=== PATIENT | male | born 1935 ===

== ENCOUNTER 2020-02-04 10:09 | Outpatient (REF) | payer MEDICARE, SELFPAY ==
--- NOTE | 2020-02-04 10:20 | XR_ITS ---
EXAMINATION: XR CHEST CLINICAL INFORMATION: SOB. COMPARISON: CT cervical spine 08/19/2017 TECHNIQUE: 2 views of the chest were obtained. FINDINGS: The lungs are well-expanded and clear of acute process. The soft tissue mass right superior paramediastinal adjacent to the trachea. The heart size and pulmonary vascularity is normal. No gross bony abnormality seen. XR/XR chest 2V IMPRESSION: Clear lungs. 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
== END 2020-02-04 10:10 | disposition home or self-care (01) ==
LOC: HO.XRAY 10:09
PROVIDERS: Visit Provider Internal Medicine
DX: R06.02 Shortness of breath (principal)
CPT/HCPCS: 71046

== ENCOUNTER 2020-03-24 11:09 | Outpatient (REF) | payer MEDICARE, SELFPAY | END 2020-03-24 11:10 | disposition home or self-care (01) | LOC: HO.HAP 11:09 | PROVIDERS: Visit Provider Internal Medicine | DX: Z46.1 Encounter for fitting and adjustment of hearing aid (principal) | CPT/HCPCS: V5266 ==

== ENCOUNTER 2020-04-24 13:58 | Outpatient (REF) | payer MEDICARE, SELFPAY ==
--- NOTE | 2020-04-24 16:00 | MHC.AU.P13 ---
Adult Audiological Evaluation Date of Visit: 04/24/20 Lightning Protection Installer Used: Turkish- In Person Reason for Appointment: Audiological evaluation to monitor the status of patient's hearing loss. He reports that the right aid hasn't been fitting well so he hasn't been able to use the hearing aid in that ear. He feels his hearing is gradually decreasing. He denies any changes to his medical history. Patient is due for updated amplification in order to facilitate improved communication. Previous Hearing Test Results: [facility], 01/15/2019- Mild sloping to severe sensorineural hearing loss bilaterally. 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: [employer] Model: [employer] M70-312 Serial Number: [id number] Battery Size: 312 Repair Warranty: 05/12/2016 Loss and Damage Warranty: 05/12/2016 Dispensed By: [facility] Date of Fittin04/26/2014 Hearing Instrument History- Left Ear: Sand Car Worker: Phonak Model: [employer] M70-312 Serial Number: [id number] Battery Size: 312 Warranty: 03/24/2020 Loss and Damage Warranty: 05/12/2016 Dispensed By: [facility] Date of Fittin04/26/2014 Otoscopy: Right Ear: Occluded with cerumen, removed with permission by lighted curette Left Ear: Unremarkable Tympanometry: Tympanometry performed due to: To determine if cerumen blockage is fully occluding canal(s) Right Ear: Normal Middle Ear System (Type A) Left Ear: Normal Middle Ear System (Type A) Hearing Evaluation: Transducer(s) Used: Insert Earphones, Bone Conduction Method: Conventional Audiometry Stimuli Used: Pure Tones Right Ear: Description of Hearing: Mild sloping to severe sensorineural hearing loss from 250-8000 Hz. Left Ear: Description of Hearing: Mild sloping to severe sensorineural hearing loss from 250-8000 Hz. Speech Recognition Threshold (SRT): Method Used: Not performed at today's visit. Right Ear: Could not perform speech testing due to aphasia. Word Discrimination: Method: Not performed at today's visit. Comparison: Compared to the most recent evaluation: Hearing is stable. Recommendations: Audiological re-evaluation in one year. Trial with amplification is recommended. Medical clearance from a physician is required before fitting. Hearing Aid Fitting will be scheduled when all materials arrive. Hearing aid maintenance performed today. See Hearing Aid Evaluation report for more information. Hearing aid(s) will be ordered after approval is received. Diagnosis: Primary Diagnosis: H90.3 Bilateral Sensorineural Hearing Loss Secondary Diagnosis: H61.21 Impacted Cerumen, Right Ear Services Performed: Comprehensive Audiological Evaluation (CPT 65597) Tympanometry (CPT 98503) Signature: Provider: Gisel Solitario, CCC-A
--- NOTE | 2020-04-25 11:31 | MHC.AU.P13 ---
Hearing Aid Evaluation- Binaural Date of Visit: 04/24/20 Ibm [employer] Commerce Developer Used: Mongolian- In Person Description of Hearing: Mild sloping to severe sensorineural hearing loss bilaterally. Current Hearing Instrument Information: Phonak Virto [id number] Additional Information: Patient has a long-standing history of hearing loss and amplification use. He notes that the current aids have not been working as well for him. He is interested in updated amplification to facilitate improved communication. He would like to remain with a similar small ITE style hearing aid. Hearing Instrument Selection: Right Ear: Pipe Coverer Helper: Phonak Model: Virto M70-312 Battery Size: 312 Color: Dukes It Director: Power Left Ear: Pipe Coverer Helper: Phonak Model: Virto M70-312 Battery Size: 312 Color: Dukes It Director: Power Plan: Plan of Care for Hearing Instrument Fitting: Patient wishes to purchase hearing aids as prescribed Action Taken/Action Needed: Earmold Impressions Taken Prior authorization to be requested Medical Clearance to be requested from PCP/ENT Hearing Fitting to be scheduled when materials arrive Diagnosis Code(s): Primary Diagnosis: H90.3 Bilateral Sensorineural Hearing Loss Secondary Diagnosis: H61.21 Impacted Cerumen, Right Ear Signature: Provider: Gisel Solitario, CCC-A
--- NOTE | 2020-04-25 11:31 | MHC.AU.MED ---
Medical Clearance for Hearing Instrumentation Date: 04/25/20 Patient Name: Nader Vaughan Date of : 1935 Referring Provider: Joan Mcgee MD We have seen your patient on 04/25/20 and have determined that they are a candidate for amplification (See accompanying report). Specifically, they would benefit from: Hearing aid use in both ears There is a statute that addresses Medical Evaluation Requirements prior to fitting a patient with a hearing aid. According to [place] statute 265 CMR:6.03(1), (a) General. Except as provided in 265 CMR 6.03(1)(b), a merchandising intern shall not sell a hearing aid unless the prospective user has presented to the merchandising intern a written statement signed by a licensed physician that states that the patient's hearing loss has been medically evaluated and the patient may be considered a candidate for a hearing aid. The medical evaluation must have taken place within the preceding six months. Please note: Due to the [place] Statute referenced above, we cannot accept a signature other than that of a licensed physician. DIGITAL CAMPAIGN MANAGER and PA signatures cannot be accepted. I am in agreement with the above recommendation. There is no medical contraindication for hearing instrumentation. Physician Signature Date Physician Name (Printed)
== END 2020-04-24 13:59 | disposition home or self-care (01) ==
LOC: HO.SH 13:58
PROVIDERS: Visit Provider Family Medicine
DX: Z46.1 Encounter for fitting and adjustment of hearing aid (principal); H90.3 Sensorineural hearing loss, bilateral
CPT/HCPCS: 92557; 92567; 92591; 92593; 99499; V5275

== ENCOUNTER 2020-05-26 12:28 | Outpatient (REF) | payer MEDICARE, SELFPAY | END 2020-05-26 12:29 | disposition home or self-care (01) | LOC: HO.HAP 12:28 | PROVIDERS: Visit Provider Family Medicine | DX: Z46.1 Encounter for fitting and adjustment of hearing aid (principal); H90.3 Sensorineural hearing loss, bilateral | CPT/HCPCS: V5011; V5020; V5160; V5260; V5266 ==

== ENCOUNTER 2020-06-07 14:57 | Outpatient (REF) | payer MEDICARE, SELFPAY | END 2020-06-07 14:58 | disposition home or self-care (01) | LOC: HO.HAP 14:57 | DX: Z13.89 Encounter for screening for other disorder (principal) ==

== ENCOUNTER → 2020-07-18 15:05 | Outpatient (BNVA) | payer MEDICARE, SELFPAY | PROVIDERS: Visit Provider Internal Medicine | DX: E78.5 Hyperlipidemia, unspecified (principal) | CPT/HCPCS: 93005; 99212 ==

== ENCOUNTER 2020-07-19 17:01 | Outpatient (REF) | payer MEDICARE, SELFPAY | END 2020-07-19 17:02 | disposition home or self-care (01) | LOC: HO.HAP 17:01 | PROVIDERS: Visit Provider Family Medicine | DX: Z13.89 Encounter for screening for other disorder (principal) ==

== ENCOUNTER 2020-08-11 10:55 | Outpatient (REF) | payer MEDICARE, SELFPAY | END 2020-08-11 10:56 | disposition home or self-care (01) | LOC: HO.HAP 10:55 | PROVIDERS: Visit Provider Family Medicine | DX: Z13.89 Encounter for screening for other disorder (principal) ==

== ENCOUNTER → 2020-09-11 09:39 | Outpatient (REF) | payer MEDICARE, SELFPAY ==
--- NOTE | 2020-09-11 09:44 | CA_ITS ---
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 The visually estimated ejection fraction is between 60-65%. - The left atrium is severely dilated. - There is mild aortic valve regurgitation. - There is mild mitral valve regurgitation. - There is mild tricuspid valve regurgitation. - Mild pulmonary hypertension is present. Findings Left Ventricle Normal left ventricular cavity size. There is normal left ventricular wall thickness. The left ventricular systolic function is normal. The visually estimated ejection fraction is between 60-65%. There is no evidence of regional wall motion abnormalities. Diastolic function is indeterminate on the basis of available data. Right Ventricle Normal right ventricular cavity size and systolic function. Atria The left atrium is severely dilated. The right atrium is moderately dilated. Aortic Valve There is a normal trileaflet aortic valve. There is no aortic valve stenosis. There is mild aortic valve regurgitation. Mitral Valve The mitral valve appears normal. There is mild mitral annular calcification. There is mild mitral valve regurgitation. There is no mitral valve stenosis. Pulmonic Valve There is mild pulmonic valve regurgitation. Tricuspid Valve Normal tricuspid valve structure. There is mild tricuspid valve regurgitation. The right ventricular systolic pressure is 36 mmHg. Mild pulmonary hypertension is present. Great Vessels The aortic annulus, sinuses of valsalva, asc aorta, and aortic arch are normal in size. Venous The inferior vena cava is normal in size and collapses greater than 50% with inspiration. Pericardium/Pleural There is no evidence of pericardial effusion. Prior Study Comparison Changes noted compared to prior study dated: 07/22/2018. Slight changes in valves and pulmonary pressure. Measurements 2D Linear Measurements IVSd: 1.00 0.6-0.9/0.6-1.0 cm LVIDd: 4.43 3.9-5.3/4.2-5.9 cm LVIDs: 2.88 2.0-3.6 cm LVPWd: 0.95 0.7-1.1 cm Ao Root: 3.87 2.1-3.5 cm LV Mass: 180.23 67-162/88-224 g LVOT Diam: 2.10 3.0+(-)1.3 cm Aortic Valve AoV Pk Jero: 1.20 AoV Mn Jero: 0.80 AoV VTI: 0.26 AoV Pk Grad: 5.74 Aov Mn Grad: 2.85 AI Pk Jero: 3.91 AI Webb: 1.33 LVOT LVOT Pk Jero: 0.79 LVOT Mn Jero: 0.50 LVOT VTI: 0.17 LVOT Pk Grad: 2.52 LVOT Mn Grad: 1.19 LVOT Diam: 2.10 LVOT Area: 3.47 Tricuspid Valve TR Pk Jero: 2.85 TR Pk Grad: 32.56 RA Press: 3.00 RVSP: 36.00 Great Vessels Aorta Ao Root-2D: 3.87 2.0-3.7 cm Ao Asc: 3.60 2.1-3.4 cm Ao Arch: 2.49 Updated in Other Vendor System with Status of Final Buck Camilo MD electronically signed on 09/11/2020 11:52:13 AM with status of Final
--- NOTE | 2020-09-11 10:40 | ECG_ITS ---
Hook-up date: 2020-09-11 10:37:00 Duration: 25:52:00 Test Indications: I48.21 Medications: 56095 QRS complexes 56 Ventricular ectopics which represent <1 % of total QRS comp. * Supraventricular ectopics which represent % of total QRS comp. * Paced QRS complexs which represent % of total QRS comp. VENTRICULAR ECTOPY 53 Isolated 0 Bigeminal Cycles 0 Couplets 1 Runs 3 Beats in Runs 3 Beats LONGEST at 141 BPM at 05:54:34 2020-09-12 3 Beats FASTEST at 141 BPM at 05:54:34 2020-09-12 SUPRAVENTRICULAR ECTOPY * Isolated * Couplets * Runs * Beats in Runs * Beats LONGEST at * BPM at :: -- * Beats FASTEST at * BPM at :: -- HEART RATES 30 MIN at 23:38:59 2020-09-11 61 AVG 107 MAX at 15:51:35 2020-09-11 LONGEST RR 4.3120 secs at 01:46:17 2020-09-12 S-T LEVELS Channel 1 - 128 mm at 10:37:00 2020-09-11 - 128 mm at 10:37:00 2020-09-11 Channel 2 - 128 mm at 10:37:00 2020-09-11 - 128 mm at 10:37:00 2020-09-11 Channel 3 - 128 mm at 02:95:61 -- - 128 mm at 02:95:61 Underlying rhythm is atrial fibrillation; Average ventricular rate 61/min; range 30-107/min; Bradycardia during sleep hours; longest pause 4.3sec at 01:46am; Rare PVCs; one 3 beat run; Patient did not report any symptoms in the diary Referred By: Neelam Kilgore Overread By: NEELAM KILGORE
== END ==
LOC: HO.CARD 09:39
PROVIDERS: Visit Provider Internal Medicine
DX: I48.21 Permanent atrial fibrillation (principal); I74.9 Embolism and thrombosis of unspecified artery; Z86.73 Personal history of transient ischemic attack (TIA), and cerebral infarction without residual deficits
CPT/HCPCS: 93225; 93226; 93306

== ENCOUNTER 2020-12-08 12:40 | Outpatient (REF) | payer MEDICARE, SELFPAY | END 2020-12-08 12:41 | disposition home or self-care (01) | LOC: HO.HAP 12:40 | PROVIDERS: PCP Family Medicine; Visit Provider Family Medicine | DX: Z46.1 Encounter for fitting and adjustment of hearing aid (principal); H90.3 Sensorineural hearing loss, bilateral | CPT/HCPCS: V5266 ==

== ENCOUNTER → 2023-06-19 10:39 | Outpatient (BNVA) | payer SELFPAY | PROVIDERS: PCP Family Medicine; Visit Provider Physician Assistant | DX: Z02.79 Encounter for issue of other medical certificate (principal) ==

== ENCOUNTER 2023-08-03 14:05 | Inpatient (IN) | payer OTHER, SELFPAY ==
[2023-08-03] VITALS (11 sets, daily range): BP systolic 109–200; BP diastolic 53–108; PULSE 87–124; RESP 17–35; TEMP 36.6–36.8; O2SAT 92–100; BMI 27.0
--- NOTE | ~2023-08-03 | US_ITS ---
EXAMINATION: US RETROPERITONEAL LIMITED (RENAL ONLY) CLINICAL INFORMATION: Acute kidney injury (TRACY). COMPARISON: CT abdomen and pelvis without contrast 06/26/2016. Renal ultrasound 04/11/2010 and 11/02/2008. TECHNIQUE: Real-time imaging of the kidneys. FINDINGS: RIGHT KIDNEY: 12.0 x 7.8 x 7.0 cm (SAG x AP x TRV). The kidney is normal in size but multiple varying size cysts are present up to 5.7 cm in size. Some are complex with multiple septations. No definite solid renal masses are seen. Renal cortex appears thinned and echogenic. No renal calculi or hydronephrosis. LEFT KIDNEY: 12.5 x 6.0 x 7.1 cm (SAG x AP x TRV). The kidney is normal in size but multiple varying size cysts are present up to 8.1 cm in size. Some are complex with multiple septations. No definite solid renal masses are seen. Renal cortex appears thinned and echogenic. No renal calculi or hydronephrosis. Similar findings were seen in the kidneys at the time of the 06/26/2016 study as well as studies dating back to 2008. US/US renal BI IMPRESSION: 1. Bilateral renal cysts, some of which are complex with multiple septations. If further workup is desired, MRI would be the exam of choice for further evaluation, in this patient with renal failure. However, if no therapy would be considered if an enhancing portion of the mass is seen, no further workup is probably necessary. 2. Bilateral renal cortical thinning and increased echogenicity consistent with medical renal disease. 3. A superimposed cause for renal function worsening could be cortical thinning.
--- NOTE | ~2023-08-03 | XR_ITS ---
EXAMINATION: XR CHEST CLINICAL INFORMATION: Fluid overload COMPARISON: Previous chest x-ray from 2019 and chest from 2017 TECHNIQUE: Frontal view of the chest was obtained. FINDINGS: The cardiac contours are stable. The lungs are clear. No pleural effusion or pneumothorax. Degenerative changes of the spine. XR/XR chest 1V IMPRESSION: No evidence for acute disease in the chest.
[2023-08-03] MEDS: Furosemide 40 MG/4 ML VIAL IVPUSH (14:10)
[2023-08-03] MEDS: Aspirin Enteric Coated 81 MG TABLET.DR PO (14:15)
[2023-08-03] MEDS: Nitroglycerin 2 % Oint 1 GM Packet 0.5 INCH TRANSDERMA (14:15)
--- NOTE | 2023-08-03 14:16 | ECG_ITS ---
Test Reason : CP Blood Pressure : / mmHG Vent. Rate : 113 BPM Atrial Rate : 000 BPM P-R Int : 000 ms QRS Dur : 078 ms QT Int : 280 ms P-R-T Axes : 000 035 034 degrees QTc Int : 384 ms Atrial fibrillation with rapid ventricular response Abnormal ECG When compared to the previous EKG of Vent. rate has increased Referred By: Chriss Rasheed Electronically Signed By:JULIETTE MELENDREZ MD
--- NOTE | 2023-08-03 14:17 | ED_ITS ---
HPI - General Adult General Chief complaint: Dyspnea Stated complaint: dIFF BREAHTING Time Seen by Provider: 08/03/23 14:31 Source: patient, family and enrollment management coordinator Mode of arrival: ambulatory Limitations: no limitations History of Present Illness ED Provider: DR. Kaufman HPI narrative: 88-year-old male came in after had a sudden onset of difficulty breathing patient was brought to the emergency department by his neighbor initially patient was in acute respiratory distress appear cyanotic, hypertensive, diaphoretic exam is consistent with acute CHF exacerbation, patient was placed on BiPAP, given Lasix, nitro paste, patient in the emergency department start to feel gradually better, patient was weaned off BiPAP machine patient is maintaining stable vital sign. Patient with history of arterial blood clots patient is on Xarelto. Related Data Home Medications ?Medication ?Instructions ?Recorded ?Confirmed amlodipine 5 mg tablet 5 mg PO DAILY 07/18/20 08/03/23 atorvastatin 20 mg tablet 20 mg PO DAILY 07/18/20 08/03/23 lisinopril 40 mg tablet 40 mg PO DAILY 07/18/20 08/03/23 rivaroxaban 20 mg tablet 20 mg PO BEDTIME 07/18/20 08/03/23 Previous Rx's ?Medication ?Instructions ?Recorded metoprolol tartrate 50 mg tablet 75 mg (1.5 x 50 mg) PO BID #270 12/26/21 tabs Allergies Allergy/AdvReac Type Severity Reaction Status Date / Time No Known Allergies Allergy Verified 08/03/23 14:18 [No Known Allergies*] Review of Systems 2 Review of Systems: all other systems are reviewed and are negative Constitutional: Reports as per HPI and Reports no additional constitutional complaints Eyes: Reports as per HPI and Reports no additional eye complaints Reports system reviewed and no additional complaints, except as documented Cardiovascular: Reports as per HPI and Reports no additional cardiovascular complaints Respiratory: Reports as per HPI and Reports no additional respiratory complaints Gastrointestinal: Reports as per HPI and Reports no additional gastrointestinal complaints Genitourinary: Reports no additional female genitourinary complaints Musculoskeletal: Reports no additional musculoskeletal complaints Skin/Breast: Reports system reviewed and no additional complaints, except as docu Psychiatric: Reports no additional psychiatric complaints Endocrine: Reports no additional endocrine complaints Hematologic/Lymphatic: Reports no additional hematologic/lymphatic complaints Allergic/Immunologic: Reports no additional allergic/immunologic complaints Reports system reviewed and no additional complaints, except as documented and Reports Abnormal speech present PMFSH Past Medical History Medical History Other and unspecified hyperlipidemia Essential hypertension Subdural hematoma Arterial embolism Cerebrovascular accident (CVA) Permanent atrial fibrillation Surgical History History of embolectomy (~04/2016) Family History Family History Father No problems noted. Mother No problems noted. Social History Social History Household Members: None Housing: House Do you presently have visiting nurse or other home services: No Patient Tobacco Use Status: Tobacco use Unknown Smoked in Last 30 Days: No Use of substances other than those prescribed or required for medical reasons: No Currently Displaying Signs/Symptoms of Drug Intoxication Withdrawal: No Have you been hit, kicked, punched, or otherwise hurt by someone within the past year? If so, by whom?: No Do you feel safe in your current relationship?: No Current Relationship Is there a partner from a previous relationship who is making you feel unsafe now?: No Are you made to feel afraid or neglected: No Advance Directives: No Advance Directives Information Provided: Yes Do you have a plan to hurt others: No Plan Recently lost weight without trying: Unsure Eating poorly because of decreased appetite: Yes Nutrition Risks: No Nutritional Risk service: No Physical Exam ED Vital Signs: Vital Signs - 24 hr 08/03/23 14:10 08/03/23 14:15 08/03/23 14:21 Temperature Pulse Rate 124 H Respiratory Rate 32 H 30 H Blood Pressure 200/99 H 189/108 H Pulse Oximetry 98 Oxygen Delivery Method BiPAP Oxygen Flow Rate 08/03/23 14:25 08/03/23 14:33 08/03/23 14:36 Temperature Pulse Rate 117 H 117 H Respiratory Rate 35 H 27 H 22 H Blood Pressure 174/78 H Pulse Oximetry 100 Oxygen Delivery Method BiPAP Oxygen Flow Rate 100 08/03/23 14:43 08/03/23 15:50 08/03/23 16:36 Temperature 98.3 F Pulse Rate 101 H 96 93 Respiratory Rate 18 20 17 Blood Pressure 149/102 H 117/65 122/76 Pulse Oximetry 100 95 94 Oxygen Delivery Method BiPAP Room Air Room Air Oxygen Flow Rate 45 BMI result Body Mass Index 27.0 Vital signs have been reviewed and appear to be correct. Blood pressure elevated. Heart rate normal. Respiratory rate normal. Temperature normal. Oxygen saturation normal. Appearance: Diaphoretic,Oriented X3. acute respiratory distress. Head: Normal external exam. Normocephalic. Atraumatic. No Heath signs noted. No raccoon eyes noted Eyes: PERRLA. EOMI. Conjunctiva and sclera normal. Eyelids normal. ENT: TM's Normal. Pharynx normal. Uvula midline. Moist mucous membranes. No trismus noted. No drooling noted. No muffled voice noted. Neck: Normal inspection. Neck supple. FROM. No adenopathy. Thyroid Normal. No meningeal signs. No neck mass noted. CVS: Normal heart rate and rhythm. Heart sound normal. No murmurs noted. Pulses normal throughout. Respiratory: acute respiratory distress, diaphoretic, positive JVD, accessory muscle usage noted. Abdomen: Soft and nontender. Bowel sounds normal in all 4 quadrants. No distention noted. No organomegaly noted. No visible injury noted. Back: No CVA tenderness. Full range of motion noted. Skin: Skin warm and dry. Normal skin color. Normal skin turgor. No rashes/lesions/lacerations noted. Extremities: +1 lower extremity edema. Extremities exhibit normal range of motion. Extremities nontender. Neuro: Oriented X 3. Cranial nerve exam: II-XII are grossly intact No motor deficit. No sensory deficit. Reflexes normal. Course Course Course Narrative: RME: Done by PAULINE Rasheed. Patient is presents cyanotic shortness of breath. Lung sound wet with crackles. Patient brought immediately to the ED bed 2. Dr. Kaufman took over care. Nitro paste, Lasix, aspirin, magnesium, albuterol, Solu- Medrol ordered. Chest x-ray ordered EKG labs ordered. Patient placed on monitor. Reevaluation(s) Reevaluation #1: 88-year-old male came in in acute respiratory distress secondary to CHF. patient improvement and abscence of cp and low d dimer value make PE is unfavorable diagnosis. Patient is of BiPAP will continue monitoring and admit to the floor case was discussed with Dr. Lafleur. Continue with Lasix, nitro, bronchodilator. Case signed out to Dr. Bui. Time: 15:49 Medications Administered Generic Name Dose Route Start Last Admin Trade Name Freq PRN Reason Stop Dose Admin Amlodipine Besylate 5 mg 08/04/23 09:00 08/04/23 08:12 Amlodipine Besylate 5 Mg Tablet PO 5 mg DAILY TACHO Administration Protocol Atorvastatin Calcium 20 mg 08/04/23 09:00 08/04/23 08:12 Atorvastatin Calcium 20 Mg Tablet PO 20 mg DAILY TACHO Administration Metoprolol Tartrate 50 mg 08/03/23 21:00 08/04/23 08:12 Metoprolol Tartrate 50 Mg Tablet PO 50 mg TID TACHO Administration Protocol Rivaroxaban 15 mg 08/03/23 21:00 08/03/23 20:32 Rivaroxaban 15 Mg Tablet PO 15 mg BEDTIME TACHO Administration Sodium Chloride 3 ml 08/04/23 00:00 08/04/23 08:13 0.9 % Sodium Chloride Flush 3 Ml Syringe IVFLUSH 3 ml QSHIFT TACHO Administration Discontinued Medications Generic Name Dose Route Start Last Admin Trade Name Freq PRN Reason Stop Dose Admin Aspirin 81 mg 08/03/23 14:15 08/03/23 14:15 Aspirin Enteric Coated 81 [address].Dr THOMPSON 08/03/23 14:16 81 mg ONCE ONE Administration Albuterol Sulfate 7.5 mg/ 0 mg 08/03/23 14:23 08/03/23 14:24 Albuterol/Ipratropium 3 ml INHALE 08/03/23 14:24 1 each ONCE ONE Administration Furosemide 40 mg 08/03/23 14:15 08/03/23 14:10 Furosemide 40 Mg/4 Ml Vial IVPUSH 08/03/23 14:16 40 mg STAT STA Administration Protocol Magnesium Sulfate 2 gm in 50 mls @ 25 mls/hr 08/03/23 14:15 08/03/23 16:29 Magnesium Sulfate/H2o IV 08/03/23 16:14 Infused ONCE ONE Infusion Methylprednisolone Sodium Succinate 125 mg 08/03/23 14:15 08/03/23 14:29 Methylprednisolone Sod Succ 125 Mg/2 Ml Vial IVPUSH 08/03/23 14:16 125 mg ONCE ONE Administration Metoprolol Tartrate 2.5 mg 08/03/23 18:01 08/03/23 18:29 Metoprolol Tartrate 5 Mg/5 Ml Vial IVPUSH 08/03/23 18:02 2.5 mg ONCE ONE Administration Protocol Nitroglycerin 0.5 inch 08/03/23 14:15 08/03/23 14:15 Nitroglycerin 2 % Oint 1 Gm Packet TRANSDERMA 08/03/23 14:16 0.5 inch ONCE ONE Administration Medical Decision Making Differential Diagnosis Differential Diagnoses: The differential diagnosis associated with the presentation includes ( CHF, pneumonia, pneumothorax, pleural effusion, COPD exacerbation, pulmonary embolism, electrolyte dearrangement, severe anemia.) Admission/Observation Consideration of admission/observation: Escalation of care including admission/observation considered Consult Healthcare Provider Management of the patient was discussed with: Hospitalist ( Dr. Aguirre) Lab Data MDM Lab Attestation statement: I reviewed the patient's lab results. 08/04/23 06:15 08/04/23 06:15 Labs: Lab Results 08/03/23 08/03/23 Range/Units 14:09 14:15 WBC 10.2 (4.8-10.8) X10*3/uL RBC 5.22 (4.60-5.80) X10*6/uL Hgb 16.3 (14.0-18.0) g/dl Hct 49.8 (42.0-52.0) % MCV 95.4 (80.0-98.0) fL MCH 31.2 (27.0-33.0) pg MCHC 32.7 (31.0-36.0) g/dl RDW 12.6 (11.0-16.0) % Plt Count 225 (160-400) X10*3/uL MPV 10.8 (9.4-12.4) fL Immature Gran % (Auto) 0.3 (0.0-0.4) % Neut % (Auto) 40.7 L (45-73) % Lymph % (Auto) 41.0 H (20-40) % [place] % (Auto) 9.7 (2-11) % Eos % (Auto) 7.5 H (0-4) % Baso % (Auto) 0.8 (0-2) % Lymph # (Auto) 4.2 (1.2-4.9) X10*3/uL [place] # (Auto) 1.0 (0.1-1.2) X10*3/uL Eos # (Auto) 0.8 H (0.0-0.4) X10*3/uL Baso # (Auto) 0.1 (0.0-0.2) X10*3/uL Abs Immat Gran (auto) 0.03 (0.00-0.03) X10*3/uL Absolute Neuts (auto) 4.1 (2.0-8.3) x10*3/uL Absolute Nucleated RBC 0.000 (0.0-0.012) X10*3/uL Nucleated RBC % (auto) 0.0 (0.0-0.2) /100WBC PT 16.6 H (11.1-13.3) SEC INR 1.4 H (0.9-1.1) APTT 37.7 H (26.0-36.8) SEC D-Dimer High Sensitivty 204 NG/ML Sodium 142 (135-145) mmol/L Potassium 4.8 (3.3-5.1) mmol/L Chloride 105 (96-108) mmol/L Carbon Dioxide 28 (22-29) mmol/L Anion Gap 14 (12-20) BUN 16 (9-16) mg/dL Creatinine 1.51 H (0.5-1.4) mg/dL Estim Creat Clear Calc 31.8 Estimated GFR 44 POC Glucose 136 H (60-115) mg/dL Random Glucose 138 H (60-115) mg/dL Calcium 10.0 (8.4-10.2) mg/dL Total Bilirubin 1.0 (0.0-1.0) mg/dL AST 28 (5-37) U/L ALT 16 (0-40) U/L Alkaline Phosphatase 132 H (39-117) U/L Troponin I High Sens 2.9 (<3.5-35.0) ng/L B-Natriuretic Peptide 545 H (<100) pg/mL Total Protein 8.6 H (6.5-8.0) g/dL Albumin 4.8 (3.5-5.0) g/dL Independent Interpretation I performed an independent interpretation of an: EKG ( Atrial fibrillation at 113, otherwise normal intervals, no ST-T changes.) and Plain X-Ray ( chest: No evidence for acute lung disease.) Radiology Impression Discussion of test interpretation with radiology: I have reviewed the radiologist's reading. Critical Care Time Critical Care Time Critical Care Time: Yes Total Critical Care Time: 60 Attestation: The patient was critically ill with a high probability of imminent or life- threatening deterioration. I spent greater than 30 minutes of discontinuous time evaluating the patient, delivering critical care at the bedside, discussing evaluating data with consultants. Critical care time does not include time spent performing separately billable procedures or teaching. Time spent performing critical care was 60 minutes. Discharge Plan Discharge Clinical Impression: A-fib, Acute exacerbation of CHF (congestive heart failure) Patient Disposition: Admitted As Inpatient Interventions: Admission Worksheet (ED) Last Done: 08/04/23 01:26 Discharge Date/Time: 08/04/23 02:05
[2023-08-03 14:18] LABS: MANUAL DIFF FLAG NO
[2023-08-03 14:21] LABS: Basophils Absolute Auto 0.1 X10*3/uL (0.0-0.2); Basophils Percent Auto 0.8 % (0-2); Eosinophils Absolute Auto 0.8 X10*3/uL (0.0-0.4); Eosinophils Percent Auto 7.5 % (0-4); Hematocrit 49.8 % (42.0-52.0); Hemoglobin 16.3 g/dl (14.0-18.0); Imm Gran Abs Auto 0.03 X10*3/uL (0.00-0.03); Imm Gran Pct Auto 0.3 % (0.0-0.4); Lymphocytes Absolute Auto 4.2 X10*3/uL (1.2-4.9); Mean Corpuscular HGB Conc 32.7 g/dl (31.0-36.0); Mean Corpuscular Hemoglobin 31.2 pg (27.0-33.0); Mean Corpuscular Volume 95.4 fL (80.0-98.0); Mean Platelet Volume 10.8 fL (9.4-12.4); Monocytes Percent Auto 9.7 % (2-11); Neutrophils Absolute Auto 4.1 x10*3/uL (2.0-8.3); Neutrophils Percent Auto 40.7 % (45-73); Platelet Count 225 X10*3/uL (160-400); Red Blood Count 5.22 X10*6/uL (4.60-5.80); Red Cell Distribution Width 12.6 % (11.0-16.0); White Blood Count 10.2 X10*3/uL (4.8-10.8)
[2023-08-03] MEDS: Albuterol Sulfate 7.5 MG, Albuterol/Iprat 2.5/0.5MG 3 ML 3 ML INHALE (14:24)
[2023-08-03] MEDS: methylPREDNISolone Sod Succ 125 MG/2 ML VIAL IVPUSH (14:29)
[2023-08-03] MEDS: Magnesium Sulfate/H2O 2 GM/50 ML PIGGYBACK IV (14:29)
[2023-08-03 14:35] LABS: Glucose, Whole Blood 136 mg/dL (60-115)
[2023-08-03 14:41] LABS: Alanine Aminotransferase 16 U/L (0-40); Albumin Level 4.8 g/dL (3.5-5.0); Alkaline Phosphatase 132 U/L (39-117); Anion Gap 14 (12-20); Aspartate Amino Transferase 28 U/L (5-37); Blood Urea Nitrogen 16 mg/dL (9-16); Carbon Dioxide 28 mmol/L (22-29); Chloride 105 mmol/L (96-108); Creatinine Clr Calc Pharmacy 31.8; Estimated Glomerular Filt Rate 44; Glucose Random 138 mg/dL (60-115); Potassium 4.8 mmol/L (3.3-5.1); Sodium 142 mmol/L (135-145); Total Protein 8.6 g/dL (6.5-8.0)
--- NOTE | 2023-08-03 14:43 | PC.NURSE ---
Patient tolerating bipap well, states that he is starting to feel a little better. skin color improve, resp even and non labored at this time. family at bedside
[2023-08-03 14:45] LABS: INTERNATIONAL NORM RATIO 1.4 (0.9-1.1); Prothrombin Time 16.6 SEC (11.1-13.3)
[2023-08-03 14:47] LABS: B Type Natriuretic Peptide 545 pg/mL (<100)
[2023-08-03 14:48] LABS: Partial Thromboplastin Time 37.7 SEC (26.0-36.8); Troponin-I High Sensitivity 2.9 ng/L (<3.5-35.0)
[2023-08-03 15:10] LABS: D Dimer High Sensitivity 204 NG/ML
--- NOTE | 2023-08-03 15:52 | PC.NURSE ---
patient awake/alert, speaking in full sentences, lungs have rhonchi throughout- breathing is equal and non labored at this time, pt currently titrated off oxygen by RT, ekg monitor tech intact, vss, family at bedside, call carmen within reach, will continue to monitor
--- NOTE | 2023-08-03 17:02 | PM.IMHP ---
History of Present Illness Date of Service: 08/03/23 Attending physician on admission: Maury Cardoza Chief Complaint: SOB, difficulty breathing Pt is an 88-year-old male with a PMH significant for?HTN, HLD, persistent AFib on Xarelto, hx of CVA in 2014 and 2017, hx of subdural hematoma in 2016, and arterial embolism s/p embolectomy who presents to the ED with?sudden-onset difficulty breathing and respiratory distress. Pt reports he has been outside doing lots of strenuous out door yard work the past two days. This afternoon pt was inside taking a break and eating an apple when he had sudden-onset difficulty breathing. Patient then ran outside to get help and ran into his neighbor who found patient to be cyanotic, diaphoretic, and having difficulty breathing. EMS was called and patient was brought to the emergency room where he was placed on rescue BiPAP and given Lasix, and nitro paste. Patient reports difficulty breathing occurred immediately after eating the apple. [place] some nausea, but no vomiting. 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 Family is at bedside who report patient has not been eating or drinking past few days. Currently denies chest pain/pressure, palpitations. No fever, chills, abdominal pain. In the ED pt was tachycardic up to 124, tachypneic up to 32, and hypertensive up to 200/99. Labs were significant for creatinine 1.51, alk-phos 132, and BNP 545. D-dimer WNL at 204. CXR showed no evidence for acute disease in the chest. EKG pending. Pt was treated with Lasix, aspirin, nitroglycerin patch, DuoNebs, Mag sulfate, and Solu-Medrol. Pt will be admitted to the hospital for treatment further evaluation of acute respiratory distress secondary to aspiration as well as TRACY secondary to dehydration. Review of Systems Review of Systems: Sudden onset SOB, difficulty breathing Diaphoresis Nausea, no vomiting Reduced p.o. intake Denies chest pain/pressure, palpitations. No fever, chills, abdominal pain [facility] Medical History Other and unspecified hyperlipidemia Essential hypertension Subdural hematoma Arterial embolism Cerebrovascular accident (CVA) Permanent atrial fibrillation Family History Father No problems noted. Mother No problems noted. Surgical History History of embolectomy (~04/2016) Social History Smoked in Last 30 Days: No Use of substances other than those prescribed or required for medical reasons: No Advance Directives: No Advance Directives Information Provided: Yes Meds Allergies Allergy/AdvReac Type Severity Reaction Status Date / Time No Known Allergies Allergy Verified 08/03/23 14:18 [No Known Allergies*] Home Medications ?Medication ?Instructions ?Recorded ?Confirmed ?Last Taken ?Type amlodipine 5 mg tablet 5 mg PO DAILY 07/18/20 08/03/23 08/03/23 09:00 History atorvastatin 20 mg tablet 20 mg PO DAILY 07/18/20 08/03/23 08/03/23 09:00 History lisinopril 40 mg tablet 40 mg PO DAILY 07/18/20 08/03/23 08/03/23 09:00 History rivaroxaban 20 mg tablet 20 mg PO BEDTIME 07/18/20 08/03/23 Unknown History Physical Exam Vital Signs and Narrative: Vital Signs: Last Vital Signs Temp 98.3 F 08/03/23 15:50 Pulse 93 08/03/23 16:36 Resp 17 08/03/23 16:36 BP 122/76 08/03/23 16:36 Pulse Ox 94 08/03/23 16:36 O2 Del Method Room Air 08/03/23 16:36 O2 Flow Rate 45 08/03/23 14:43 Oxygen Flow Rate 100 08/03/23 14:15 BMI result Body Mass Index 27.0 Results Labs 08/03/23 14:15 08/03/23 14:15 Labs: Laboratory Results - last 24 hr 08/03/23 08/03/23 14:09 14:15 MCV 95.4 MCH 31.2 MCHC 32.7 RDW 12.6 Plt Count 225 MPV 10.8 Immature Gran % (Auto) 0.3 Neut % (Auto) 40.7 L Lymph % (Auto) 41.0 H [place] % (Auto) 9.7 Eos % (Auto) 7.5 H Baso % (Auto) 0.8 Lymph # (Auto) 4.2 [place] # (Auto) 1.0 Eos # (Auto) 0.8 H Baso # (Auto) 0.1 Abs Immat Gran (auto) 0.03 Absolute Neuts (auto) 4.1 Absolute Nucleated RBC 0.000 Nucleated RBC % (auto) 0.0 PT 16.6 H INR 1.4 H APTT 37.7 H D-Dimer High Sensitivty 204 Anion Gap 14 Estim Creat Clear Calc 31.8 Estimated GFR 44 POC Glucose 136 H Random Glucose 138 H Calcium 10.0 Total Bilirubin 1.0 AST 28 ALT 16 Alkaline Phosphatase 132 H Troponin I High Sens 2.9 B-Natriuretic Peptide 545 H Total Protein 8.6 H Albumin 4.8 Imaging Radiologist's Impressions: Impressions Chest X-Ray 08/03/23 14:36 IMPRESSION: No evidence for acute disease in the chest. Assessment and Plan (1) Acute respiratory distress: Status: Acute (2) TRACY (acute kidney injury): Status: Acute Plan Pt is an 88-year-old male with a PMH significant for?HTN, HLD, persistent AFib on Xarelto, hx of CVA in 2014 and 2017, hx of subdural hematoma in 2016, and arterial embolism s/p embolectomy who presents to the ED with?sudden-onset difficulty breathing and respiratory distress. Pt will be admitted to the hospital for treatment further evaluation of acute respiratory distress secondary to aspiration as well as TRACY secondary to dehydration. 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 intake Will encourage patient to drink 300 mL p.o. fluids q.6H Follow BMP Elevated BNP BNP elevated at 545 at time of presentation No history of CHF Patient given IV Lasix in the ED Clinically does not appear fluid overloaded: CXR without pleural effusions or pulmonary edema, lungs CTA, no lower leg edema Will get echocardiogram Will hold off on additional Lasix at this time Persistent AFib Patient initially presented with AFib with RVR Will give metoprolol 2.5 mg IV Treat with metoprolol 50 mg p.o. t.i.d. Continue Xarelto renally dosed Hx of CVA Continue statin HTN Continue amlodipine Hold lisinopril due to TRACY Full Code Attending:?Dr. Cardoza DVT Prophylaxis: On Xarelto Pt will require a hospitalization of at least two nights for treatment of?acute respiratory distress in the setting of likely aspiration as well as TRACY in the setting of likely reduced p.o. intake. Patient will require hospitalization for close monitoring of respiratory status and renal function. Quality Stroke Does the patient have a stroke diagnosis?: No VTE Prior VTE?: No VTE Risk Level:: Medical - moderate - high VTE Device Contraindication: Treatment Not Indicated VTE Drug Contraindication: N/A - Med Ordered
--- NOTE | 2023-08-03 18:06 | PHA.MEDREC ---
Pharmacy Consult ? Medication Reconciliation Pharmacy has completed the medication reconciliation. Patient's sons brought in meds. Utilized dip tanker services but sons speak khmer.
[2023-08-03] MEDS: Metoprolol Tartrate 5 MG/5 ML VIAL 2.5 MG IVPUSH (18:29)
--- NOTE | 2023-08-03 18:32 | PC.NURSE ---
pt passed swallow eval- dr. hernandez notified via tiger text. pt medicated per order, call carmen within reach, will continue to monitor
[2023-08-03] MEDS: Rivaroxaban 15 MG TABLET PO (20:32)
--- NOTE | 2023-08-03 20:45 | PC.NURSE ---
pts BP is low 100s, this nurse messaged hospitalist Gm Mayfield, who requested this nurse to hold the 50 of metoprolol.
[2023-08-04] VITALS (9 sets, daily range): BP systolic 112–149; BP diastolic 61–90; PULSE 69–104; RESP 18–20; TEMP 36.1–37.1; O2SAT 92–95
[2023-08-04] MEDS: 0.9 % Sodium Chloride Flush 3 ML SYRINGE IVFLUSH ×2 (01:24→08:13)
[2023-08-04 06:07] LABS: Appearance Urine Clear; Color Urine Yellow; Glucose Urine UA Negative (Negative); Leukocyte Esterase Urine Negative (Negative); Nitrite Urine Negative (Negative); Specific Gravity - Urine 1.015 (1.005-1.025); Urine Blood Negative (Negative); Urine Ketones Trace mg/dL (Negative); Urine Protein Negative (Neg-Trace)
[2023-08-04 06:48] LABS: Anion Gap 19 (12-20); Blood Urea Nitrogen 22 mg/dL (9-16); Calcium 9.5 mg/dL (8.4-10.2); Carbon Dioxide 22 mmol/L (22-29); Chloride 101 mmol/L (96-108); Creatinine Clr Calc Pharmacy 31.8; Estimated Glomerular Filt Rate 44; Glucose Random 256 mg/dL (60-115); Potassium 4.5 mmol/L (3.3-5.1); Sodium 137 mmol/L (135-145)
[2023-08-04 06:56] LABS: Hematocrit 47.1 % (42.0-52.0); Hemoglobin 15.5 g/dl (14.0-18.0); Mean Corpuscular HGB Conc 32.9 g/dl (31.0-36.0); Mean Corpuscular Hemoglobin 30.9 pg (27.0-33.0); Mean Platelet Volume 11.1 fL (9.4-12.4); Platelet Count 173 X10*3/uL (160-400); Red Blood Count 5.01 X10*6/uL (4.60-5.80); Red Cell Distribution Width 12.7 % (11.0-16.0); White Blood Count 9.3 X10*3/uL (4.8-10.8)
--- NOTE | 2023-08-04 07:00 | CA_ITS ---
Transthoracic Echocardiogram Patient (Last, First, Middle): Nader Khoury, Gender: Male Date of : 1935 Age: 88 Procedure Date: 08/04/2023 Procedure Type: Transthoracic Echocardiogram Location: [facility] Height: 162.56 cm Weight: 71.22 kg BSA: 1.76 m2 Heart Rate: 77 bpm BP: 132 / 89 mmHg Rubber Heel And Sole Press Tender: SHAWNA Brasher MD: Zeny CARPENTER Cardroom Attendant: Chencho Jarvis MD Symptoms: Elevated BNP, ?CHF Study Quality: Fair ECG Rhythm: Atrial Fibrillation Conclusions: - 1. Low normal LV ejection fraction 50-55% 2. Biatrial enlargement, right severely dilated and left moderately dilated 3. Mild aortic regurgitation and mitral regurgitation 4. Normal measured RV systolic pressure Findings Left Ventricle Normal left ventricular cavity size. There is normal left ventricular wall thickness. The left ventricular systolic function is low normal. The visually estimated ejection fraction is between 50-55%. Diastolic function is indeterminate on the basis of available data. Right Ventricle Normal right ventricular cavity size. There is normal right ventricular systolic function. Atria The left atrium is moderately dilated. There is no evidence of interatrial shunt. The right atrium is severely dilated. Aortic Valve There is mild calcification of the aortic valve. There is mild thickening of the aortic valve. There is no aortic valve stenosis. There is mild aortic valve regurgitation. Mitral Valve There is mild anterior and posterior mitral leaflet thickening. There is mild mitral annular calcification. There is mild mitral valve regurgitation. There is no mitral valve stenosis. Pulmonic Valve The pulmonic valve was not well visualized. Tricuspid Valve The tricuspid valve was not well visualized. There is mild tricuspid valve regurgitation. The right ventricular systolic pressure is normal. The right ventricular systolic pressure is 28 mmHg. Normal right atrial pressure. There is no evidence of pulmonary hypertension. Great Vessels The aorta was not well visualized. The pulmonary artery was not well visualized. There is mild dilatation of the sinuses of Valsalva. Venous The inferior vena cava was not well visualized. Pericardium/Pleural The pericardium was not well visualized. Measurements 2D Linear Measurements IVSd: 0.91 0.6-0.9/0.6-1.0 cm LVIDd: 4.61 3.9-5.3/4.2-5.9 cm LVIDd Index: 2.62 2.4-3.2/2.2-3.1 cm/m2 LVIDs: 3.11 2.0-3.6 cm LVPWd: 0.93 0.7-1.1 cm LA Diam: 4.20 2.7-3.8/3.0-4.0 cm LAIDs Index: 2.39 1.5-2.3 cm/m2 LV Mass: 176.14 67-162/88-224 g LV Mass Index: 100.08 43-95/49-115 g/m2 LVOT Diam: 1.90 3.0+(-)1.3 cm 2D Systolic Function EF 4C: 52.10 >55% EF 2C: 52.80 >55% EF BiP: 52.70 >55% Mitral Valve MV Pk E: 1.27 E'Lateral: 8.70 E'Medial: 6.09 E/E' Med: 20.90 E/E' Lat: 14.60 Aortic Valve AoV Pk Jero: 1.13 AoV Pk Grad: 5.00 АННА: 2.18 AI Pk Jero: 3.73 AI Foster: 2.27 LVOT LVOT Pk Jero: 0.87 LVOT Mn Jero: 0.60 LVOT VTI: 0.17 LVOT Pk Grad: 3.00 LVOT Mn Grad: 2.00 LVOT Diam: 1.90 LVOT Area: 2.84 Diastolic Function MV Pk E: 1.27 E'Medial: 6.09 E/E' Med: 20.90 E' Laterial: 8.70 E/E' Lat: 14.60 Right Ventricle TAPSE (mm): 19.40 Tricuspid Valve TR Pk Jero: 2.50 TR Pk Grad: 25.00 RA Press: 3.00 RVSP: 28.00 Great Vessels Aorta Sinus of Valsalva: 4.00 2.0-3.5 cm Ao Asc: 3.50 2.1-3.4 cm Pulmonary Valve PV Pk Jero: 0.68 Peak PV Grad: 2.00 Updated in Other Vendor System with Status of Final Chencho Jarvis MD electronically signed on 08/04/2023 11:20:15 AM with status of Final
[2023-08-04] MEDS: Atorvastatin Calcium 20 MG TABLET PO (08:12)
[2023-08-04] MEDS: Metoprolol Tartrate 50 MG TABLET PO ×2 (08:12→16:03)
[2023-08-04] MEDS: amLODIPine Besylate 5 MG TABLET PO (08:12)
--- NOTE | 2023-08-04 09:34 | MHC.CM.PN ---
CM met with Patient at bedside with the assist of a [facility] Appointment Coordinator. CM assisted Patient with the completion of a HCP; he named his Son/daniel as his Agent. CM addressed IMM with Patient and the original was given to Patient and a copy has been placed on the chart. Patient lives alone in a house and he uses a cane when he mops his floors. Home/self care is the goal and CM has initiated and will follow for dc planning. PCP is Dr. Joan Mcgee.
--- NOTE | 2023-08-04 13:44 | MHC.SL.SWA ---
Speech Pathologist Impression: Risk of aspiration Risk of Aspiration Due to: Neurological Condition Dysphasia Diet Status: No change at this time Liquid Consistency and Strategies for Safe Swallow: Liquid Intake Recommendation: Thin Liquid Intake Strategies: Small Sips Solid Food Consistency: Dietary Recommendations: Regular Additional Modifications to Solid Foods: Unremarkable exam. Recommend continue on REGULAR texture diet and THIN liquids, pills WHOLE in LIQUID. Given recent choking event and hx CVAs as risk factor, recommend direct supervision and aspiration precautions. Patient was counselled on safe eating behaviors. PARENT COACH to f/u 1-2x to monitor tolerance. Oral Medication Intake: Whole with Liquid Please contact the pharmacy regarding appropriate crushable or liquid drug formulations that are available whenever modified delivery is recommended. Compensatory Strategies and Precautions to be Taken for Safe Swallow: Sitting Upright (90 deg) Small Bites and Sips Alternate Liquids/Solids Rate of Ingestion Change Supervision While Eating and Drinking for Safe Swallow: Total Supervision (1:1) Swallowing Recommended Treatments: Compens. Strategy Educat. Recommendation for Speech: Inpatient Speech Therapy Comment: 1-2 f/u Frequency/Duration: Date Range for Service Req: Timeline to reassess: Assistant Men'S Soccer Coach Clinican/Clinical Fellow: No Supervisory Statement: I have reviewed and agree with the student/clinical fellow's documentation: N/A Speech Language Pathologist: Lisette Burks M.A., CCC-PARENT COACH
[2023-08-04] MEDS: 0.9 % Sodium Chloride 1,000 ML 60 ML IVCONT (16:05)
--- NOTE | 2023-08-04 16:47 | HO.PM.IMPN ---
Subjective Subjective Date of Service: 08/04/23 Interval History: possible aspirtion afib rvr tracy Review of Systems sob seems to be improved ,denies any chest pain no cough Physical Exam Vital Signs: Vital Signs: Last Vital Signs Temp 97.5 F 08/04/23 15:35 Pulse 74 08/04/23 16:03 Resp 20 08/04/23 15:35 BP 135/80 08/04/23 16:03 Pulse Ox 92 08/04/23 15:35 O2 Del Method Room Air 08/04/23 15:35 O2 Flow Rate 45 08/03/23 14:43 Oxygen Flow Rate 100 08/03/23 14:15 BMI result Body Mass Index 27.0 Appearance: Alert.? Oriented X3.? cvs: rrr, [id number] , no murmur res: clear to auscultation ,no rhonchii or wheezing abd: no rebound or guarding ,nt, bs present. ext pulses present , no cyanosis , no edema neuro: axo3 , nonfocal. Objective Data Active Medications Acetaminophen (Acetaminophen 325 Mg Tablet) 650 mg PO Q6H PRN PRN Reason: Pain, Mild (Pain Scale 1-3) Amlodipine Besylate (Amlodipine Besylate 5 Mg Tablet) 5 mg PO DAILY [facility]; Protocol Last Admin: 08/04/23 08:12 Dose: 5 mg Documented By: AYAZ Atorvastatin Calcium (Atorvastatin Calcium 20 Mg Tablet) 20 mg PO DAILY [facility] Last Admin: 08/04/23 08:12 Dose: 20 mg Documented By: AYAZ Benzonatate (Benzonatate 100 Mg Capsule) 100 mg PO TID PRN PRN Reason: Cough Docusate Sodium (Docusate Sodium 100 Mg Capsule) 100 mg PO DAILY PRN PRN Reason: Constipation Sodium Chloride (Ns) 1,000 mls @ 60 mls/hr IVCONT .[id number] [facility] Last Admin: 08/04/23 16:05 Dose: 60 mls/hr Documented By: AYAZ Melatonin (Melatonin 3 Mg Tablet) 6 mg PO BEDTIME PRN PRN Reason: Insomnia Metoprolol Tartrate (Metoprolol Tartrate 50 Mg Tablet) 50 mg PO TID [facility]; Protocol Last Admin: 08/04/23 16:03 Dose: 50 mg Documented By: AYAZ Ondansetron HCl (Ondansetron Hcl 4 Mg/2 Ml Vial) 4 mg IVPUSH Q8H PRN PRN Reason: Nausea and Vomiting Rivaroxaban (Rivaroxaban 15 Mg Tablet) 15 mg PO BEDTIME [facility] Last Admin: 08/03/23 20:32 Dose: 15 mg Documented By: CHAYA Sodium Chloride (0.9 % Sodium Chloride Flush 3 Ml Syringe) 3 ml IVFLUSH QSHIFT [facility] Last Admin: 08/04/23 16:05 Dose: Not Given Documented By: AYAZ Non-Admin Reason: IV Running Labs 08/04/23 06:15 08/04/23 06:15 Labs: Laboratory Results - last 24 hr 08/04/23 08/04/23 05:55 06:15 MCV 94.0 MCH 30.9 MCHC 32.9 RDW 12.7 Plt Count 173 MPV 11.1 Absolute Nucleated RBC 0.000 Nucleated RBC % (auto) 0.0 Anion Gap 19 Estim Creat Clear Calc 31.8 Estimated GFR 44 Random Glucose 256 H Calcium 9.5 Urine Color Yellow Urine Appearance Clear Urine pH 5.0 Ur Specific [place] 1.015 Urine Protein Negative Urine Glucose (UA) Negative Urine Ketones Trace Urine Blood Negative Urine Nitrite Negative Ur Leukocyte Esterase Negative Assessment and Plan (1) TRACY (acute kidney injury): Status: Acute (2) Acute respiratory distress: Status: Acute (3) Other and unspecified hyperlipidemia: Status: Acute Plan 88-year-old male with a PMH significant for?HTN, HLD, persistent AFib on Xarelto, hx of CVA in 2014 and 2017, hx of subdural hematoma in 2016, and arterial embolism s/p embolectomy who presents to the ED with?sudden-onset difficulty breathing and respiratory distress. Pt will be admitted to the hospital for treatment further evaluation of acute respiratory distress secondary to aspiration as well as TRACY secondary to dehydration. Acute respiratory distress-sudden onset SOB, cyanosis, diaphoresis, difficulty breathing; placed on rescue BiPAP in the ED to good effect Likely secondary to aspiration on apple CXR negative, lungs Clear to ausculatation, pt currently without respiratory complaints, no longer on supplemental O2 No leukocytosis or fever check respiratory panel,added procalcitonin levels tachycardia improved, Monitor respiratory status,consider antibiotics if fevers or new symptoms TRACY Creatinine 1.51 at time of presentation Baseline around 1.10 Likely secondary to reduced p.o. intake,diurectics /lisnopril added ivf gentle ,encourage patient to drink 300 mL p.o. fluids q.6H ua neg renal us Follow BMP, added nephro eval. Elevated BNP BNP elevated at 545 at time of presentation,patient denies new symptoms No history of CHF Patient given IV Lasix in the ED Clinically does not appear fluid overloaded: CXR without pleural effusions or pulmonary edema, lungs CTA, no lower leg edema echocardiogram:ef 50-55% Biatrial enlargement, right severely dilated and left moderately dilated Mild aortic regurgitation and mitral regurgitation Normal measured RV systolic pressure hold off on additional Lasix at this time,moniter closely. Persistent AFib Patient initially presented with AFib with RVR given metoprolol 2.5 mg IV continue metoprolol 50 mg p.o. t.i.d., Xarelto renally dose.d Hx of CVA Continue statin HTN Continue amlodipine Hold lisinopril due to TRACY Full Code DVT Prophylaxis: On Xarelto ongoing need hospitalization for treatment of?acute respiratory distress in the setting of likely aspiration as well as TRACY in the setting of likely reduced p.o. intake. Patient will require hospitalization for close monitoring of respiratory status and renal function. Quality Stroke Does the patient have a stroke diagnosis?: No VTE Prior VTE?: No VTE Risk Level:: Medical - moderate - high VTE Device Contraindication: Treatment Not Indicated VTE Drug Contraindication: N/A - Med Ordered
[2023-08-04 18:44] LABS: Procalcitonin 0.07 ng/mL
[2023-08-04] MEDS: Rivaroxaban 15 MG TABLET PO (20:41)
[2023-08-05 03:00] VITALS: BP 146/83; PULSE 76; RESP 20; TEMP 36.3; O2SAT 94
[2023-08-05 06:45] LABS: Anion Gap 14 (12-20); Blood Urea Nitrogen 24 mg/dL (9-16); Calcium 9.2 mg/dL (8.4-10.2); Carbon Dioxide 26 mmol/L (22-29); Chloride 103 mmol/L (96-108); Creatinine Clr Calc Pharmacy 44.8; Estimated Glomerular Filt Rate > 60; Glucose Random 123 mg/dL (60-115); Potassium 4.3 mmol/L (3.3-5.1); Sodium 139 mmol/L (135-145)
[2023-08-05 07:54] VITALS: BP 158/79; PULSE 74; RESP 20; TEMP 36.6; O2SAT 96
[2023-08-05 08:35] VITALS: BP 158/79; PULSE 74
[2023-08-05] MEDS: amLODIPine Besylate 5 MG TABLET PO (08:35)
[2023-08-05] MEDS: Metoprolol Tartrate 50 MG TABLET PO (08:35)
[2023-08-05] MEDS: Atorvastatin Calcium 20 MG TABLET PO (08:35)
[2023-08-05 10:02] LABS: Adenovirus PCR Not Detected (Not Detect.); Bordetella parapertussis PCR Not Detected (Not Detect.); Bordetella pertussis PCR Not Detected (Not Detect.); Chlamydia pneumoniae PCR Not Detected (Not Detect.); Coronavirus 229E PCR Not Detected (Not Detect.); Coronavirus HKU1 PCR Not Detected (Not Detect.); Coronavirus NL63 PCR Not Detected (Not Detect.); Coronavirus OC43 PCR Not Detected (Not Detect.); Human metapneumovirus PCR Not Detected (Not Detect.); Influenza A PCR Not Detected (Not Detect.); Influenza B PCR Not Detected (Not Detect.); Mycoplasma pneumoniae PCR Not Detected (Not Detect.); Parainfluenza 1 PCR Not Detected (Not Detect.); Parainfluenza 2 PCR Not Detected (Not Detect.); Parainfluenza 3 PCR Not Detected (Not Detect.); Parainfluenza 4 PCR Not Detected (Not Detect.); RSV PCR Not Detected (Not Detect.); Rhino/Enterovirus PCR Not Detected (Not Detect.)
[2023-08-05 10:28] LABS: SARS-CoV-2 PCR Not Detected (Not Detect.)
--- NOTE | 2023-08-05 11:34 | P.DS_ITS ---
DS: Providers Provider Date of Service: 08/05/23 Date of admission: 08/03/23 18:02 Primary care physician: Chloé Swenson NP Consults: 08/04/23 12:53 Consult to Nephrology Routine Consulting Provider: [facility] [place] Reason for consultation: tracy Has provider been notified: No DS: Diagnosis Discharge Diagnosis (1) TRACY (acute kidney injury): Status: Acute (2) Acute respiratory distress: Status: Acute (3) Other and unspecified hyperlipidemia: Status: Acute DS: Summary Hospital Course Hospital Course: History and physical as per admitting provider. Pt is an 88-year-old male with a PMH significant for?HTN, HLD, persistent AFib on Xarelto, hx of CVA in 2014 and 2017, hx of subdural hematoma in 2016, and arterial embolism s/p embolectomy who presents to the ED with?sudden-onset difficulty breathing and respiratory distress. Pt reports he has been outside doing lots of strenuous out door yard work the past two days. This afternoon pt was inside taking a break and eating an apple when he had sudden-onset difficulty breathing. Patient then ran outside to get help and ran into his neighbor who found patient to be cyanotic, diaphoretic, and having difficulty breathing. EMS was called and patient was brought to the emergency room where he was placed on rescue BiPAP and given Lasix, and nitro paste. Patient reports difficulty breathing occurred immediately after eating the apple. [place] some nausea, but no vomiting. 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 Family is at bedside who report patient has not been eating or drinking past few days. Currently denies chest pain/pressure, palpitations. No fever, chills, abdominal pain. In the ED pt was tachycardic up to 124, tachypneic up to 32, and hypertensive up to 200/99. Labs were significant for creatinine 1.51, alk-phos 132, and BNP 545. D-dimer WNL at 204. CXR showed no evidence for acute disease in the chest. EKG pending. Pt was treated with Lasix, aspirin, nitroglycerin patch, DuoNebs, Mag sulfate, and Solu-Medrol. Pt will be admitted to the hospital for treatment further evaluation of acute respiratory distress secondary to aspiration as well as TRACY secondary to dehydration. 88-year-old man treated for acute respiratory distress with cyanosis, diaphoresis and difficulty breathing secondary to food aspiration. He was eating an apple at home. Chest x-ray was negative for consolidation or effusion. He only required supplemental oxygen for short period of time and all of his symptoms resolved on their own. He was also noted to have TRACY possibly secondary to diuretic/lisinopril. Gentle IV fluids were started and patient was encouraged to increase oral intake. Renal ultrasound showed bilateral renal cortical thinning and increased echogenicity consistent with medical renal disease. He was spent some noted cyst which can be followed up with his primary care provider. His renal function improved after IV fluids. He was noted to have an elevated BNP but no obvious congestive heart failure and did not appear to be fluid overloaded. History of persistent atrial fibrillation initially presented with AFib RVR but given IV metoprolol and stabilized. He is to continue his metoprolol and Xarelto. History of CVA. Continue statin Hypertension. Continue amlodipine, lisinopril. Time Attestation Discharge Coordination Time (in mins): 35 Quality: Safe Use of Opioids Does Pt have an Active Cancer Diagnosis on the Problem List?: No Quality: Stroke Does the patient have a stroke diagnosis?: No Physical Exam Vital Signs: Vital Signs: Last Vital Signs Temp 97.9 F 08/05/23 07:54 Pulse 74 08/05/23 08:35 Resp 20 08/05/23 07:54 BP 158/79 H 08/05/23 08:35 Pulse Ox 96 08/05/23 07:54 O2 Del Method Room Air 08/05/23 07:54 O2 Flow Rate 45 08/03/23 14:43 Oxygen Flow Rate 100 08/03/23 14:15 BMI result Body Mass Index 27.0 Appearing in no acute distress head is normocephalic atraumatic eyes pupils are PERRLA sclera is anicteric mouth throat mucous membranes are intact and moist neck is supple no lymphadenopathy, no JVD noted lung sounds are clear to auscultation heart regular rate rhythm, clear S1, S2 positive bowel sounds, abdomen is soft, nontender neuro patient is alert x3, no focal deficits DS: Data Data Completed and Pending Labs on day of discharge: Laboratory Results - last 24 hr 08/04/23 08/04/23 08/05/23 06:15 17:31 06:18 Hold Purple Top SEE NOTE Sodium 139 Potassium 4.3 Chloride 103 Carbon Dioxide 26 Anion Gap 14 BUN 24 H Creatinine 1.07 Estim Creat Clear Calc 44.8 Estimated GFR > 60 Random Glucose 123 H Calcium 9.2 Procalcitonin 0.07 Respiratory Panel [place] See Note Adenovirus (Rapid PCR) Not Detected B.pert (TEM-PCR) Not Detected B.parapertussis DNA PCR Not Detected C. pneumoniae DNA (PCR) Not Detected Coronavirus OC43 (PCR) Not Detected Coronavirus HKU1 (PCR) Not Detected Coronavirus 229E (PCR) Not Detected Coronavirus NL63 (PCR) Not Detected Human Metapneumovir PCR Not Detected Influenza A (RT-PCR) Not Detected Influenza B (RT-PCR) Not Detected M. pneumoniae (PCR) Not Detected Parainfluenza 1 (PCR) Not Detected Parainfluenza 2 (PCR) Not Detected Parainfluenza 3 (PCR) Not Detected Parainfluenza 4 (PCR) Not Detected RSV (PCR) Not Detected Entero/Rhino (PCR) Not Detected SARS-CoV-2 RNA (RT-PCR) Not Detected Discharge Plan Discharge Anticipated Discharge Date/Time: 08/05/23 11:30 Patient Disposition: Home, Self-Care Discharge Diagnosis: Food Aspiration TRACY Referrals: Chloé Swenson STATISTICAL DEVELOPER [Primary Care Provider] - 1 Week Discharge Medications: Continued metoprolol tartrate 50 mg tablet 75 mg PO BID Qty: 270 1RF Rx Instructions: Overdue for follow up appt. Please call our office to schedule appointment so we can continue filling your prescriptions. [phone]. atorvastatin 20 mg tablet 20 mg PO DAILY lisinopril 40 mg tablet 40 mg PO DAILY amlodipine 5 mg tablet 5 mg PO DAILY rivaroxaban 20 mg tablet 20 mg PO BEDTIME Discharge Orders: Discharge Order (Routine); Ordered 08/05/23 Ordered By: Bren Nice Diet: Advance to usual diet Activity on Discharge: As tolerated Stand Alone Forms: Patient Portal Discharge page Print Language: Togolese Care Plan Goals: Follow-up with primary care provider as needed Take all medications as prescribed Health Concerns: Food Aspiration TRACY Plan of Treatment: See care plan Assessment: Treated for food aspiration after eating an apple
[2023-08-05 12:00] VITALS: BP 145/75; PULSE 83; RESP 20; TEMP 36.6; O2SAT 94
--- NOTE | 2023-08-05 12:22 | MHC.CM.PN ---
Pt is medically cleared for discharge home self-care, pts son to transport him home.
--- NOTE | 2023-08-05 13:12 | P.CONNP_ITS ---
History of Present Illness Reason for Consult Consult date: 08/05/23 Chief Complaint Chief complaint: Acute respiratory distress History of Present Illness Narrative: 88-year-old male with a PMH significant for?HTN, HLD, persistent AFib on Xarelto, hx of CVA in 2014 and 2017, hx of subdural hematoma in 2016, and arterial embolism s/p embolectomy who presents to the ED with?sudden-onset difficulty breathing and respiratory distress. Pt reports he has been outside doing lots of strenuous out door yard work the past two days. This afternoon pt was inside taking a break and eating an apple when he had sudden-onset difficulty breathing. Creatinine bumped to 1.5 and hence this consultation Review of Systems Constitutional: Denies fever(s) and Denies weight loss Cardiovascular: Denies chest pain Respiratory: Denies cough and Denies hemoptysis Gastrointestinal: Denies abdominal pain, Denies diarrhea and Denies nausea Musculoskeletal: Denies back pain Denies focal weakness PMFSH Past Medical History Medical History Other and unspecified hyperlipidemia Essential hypertension Subdural hematoma Arterial embolism Cerebrovascular accident (CVA) Permanent atrial fibrillation Family History Family History Father No problems noted. Mother No problems noted. Surgical History Surgical History History of embolectomy (~04/2016) Social History Social History Household Members: None Housing: House Do you presently have visiting nurse or other home services: No Patient Tobacco Use Status: Tobacco use Unknown Smoked in Last 30 Days: No Use of substances other than those prescribed or required for medical reasons: No Currently Displaying Signs/Symptoms of Drug Intoxication Withdrawal: No Have you been hit, kicked, punched, or otherwise hurt by someone within the past year? If so, by whom?: No Do you feel safe in your current relationship?: No Current Relationship Is there a partner from a previous relationship who is making you feel unsafe now?: No Are you made to feel afraid or neglected: No Advance Directives: No Advance Directives Information Provided: Yes Do you have a plan to hurt others: No Plan Recently lost weight without trying: Unsure Eating poorly because of decreased appetite: Yes Nutrition Risks: No Nutritional Risk service: No Meds Allergies Allergy/AdvReac Type Severity Reaction Status Date / Time No Known Allergies Allergy Verified 08/03/23 14:18 [No Known Allergies*] Active Medications: Current Medications Acetaminophen (Acetaminophen 325 Mg Tablet) 650 mg PO Q6H PRN PRN Reason: Pain, Mild (Pain Scale 1-3) Amlodipine Besylate (Amlodipine Besylate 5 Mg Tablet) 5 mg PO DAILY [facility]; Protocol Last Admin: 08/05/23 08:35 Dose: 5 mg Atorvastatin Calcium (Atorvastatin Calcium 20 Mg Tablet) 20 mg PO DAILY [facility] Last Admin: 08/05/23 08:35 Dose: 20 mg Benzonatate (Benzonatate 100 Mg Capsule) 100 mg PO TID PRN PRN Reason: Cough Docusate Sodium (Docusate Sodium 100 Mg Capsule) 100 mg PO DAILY PRN PRN Reason: Constipation Sodium Chloride (Ns) 1,000 mls @ 60 mls/hr IVCONT .[id number] [facility] Last Infusion: 08/05/23 11:54 Dose: Infused Melatonin (Melatonin 3 Mg Tablet) 6 mg PO BEDTIME PRN PRN Reason: Insomnia Metoprolol Tartrate (Metoprolol Tartrate 50 Mg Tablet) 50 mg PO TID [facility]; Protocol Last Admin: 08/05/23 08:35 Dose: 50 mg Ondansetron HCl (Ondansetron Hcl 4 Mg/2 Ml Vial) 4 mg IVPUSH Q8H PRN PRN Reason: Nausea and Vomiting Rivaroxaban (Rivaroxaban 15 Mg Tablet) 15 mg PO BEDTIME [facility] Last Admin: 08/04/23 20:41 Dose: 15 mg Sodium Chloride (0.9 % Sodium Chloride Flush 3 Ml Syringe) 3 ml IVFLUSH QSHIFT [facility] Last Admin: 08/05/23 08:35 Dose: Not Given Home Medications ?Medication ?Instructions ?Recorded ?Confirmed ?Last Taken ?Type amlodipine 5 mg tablet 5 mg PO DAILY 07/18/20 08/03/23 08/03/23 09:00 History atorvastatin 20 mg tablet 20 mg PO DAILY 07/18/20 08/03/23 08/03/23 09:00 History lisinopril 40 mg tablet 40 mg PO DAILY 07/18/20 08/03/23 08/03/23 09:00 History rivaroxaban 20 mg tablet 20 mg PO BEDTIME 07/18/20 08/03/23 Unknown History Physical Exam Vital Signs: Last Vital Signs Temp 97.9 F 08/05/23 12:00 Pulse 83 08/05/23 12:00 Resp 20 08/05/23 12:00 BP 145/75 H 08/05/23 12:00 Pulse Ox 94 08/05/23 12:00 O2 Del Method Room Air 08/05/23 12:00 O2 Flow Rate 45 08/03/23 14:43 Oxygen Flow Rate 100 08/03/23 14:15 BMI result Body Mass Index 27.0 Const General: comfortable Nutritional Appearance: well nourished Orientation/consciousness: patient oriented x3 HEENT Head: No normal to inspection Mouth: moist mucous membranes Neck Neck: Yes supple and Yes no JVD Resp Auscultation: clear to auscultation bilaterally, no rales and rub present Cardio Jugular venous distension: no JVD Palpation: no palpable S3 and no palpable S4 Heart sounds: no rubs GI Palpation (GI): Soft to palpation and nontender Percussion: No Fluid wave present General: Yes no CVA tenderness Back/Spine/Pelvis Back: no CVA tenderness Skin General skin exam: no rashes or lesions noted Neuro General: patient oriented x3 Extrem General: Yes no pedal edema and No clubbing Results Lab Results 08/04/23 06:15 08/05/23 06:18 Lab results: Chemistry 08/03/23 08/04/23 08/05/23 14:15 06:15 06:18 Sodium 142 137 139 Potassium 4.8 4.5 4.3 Carbon Dioxide 28 22 26 BUN 16 22 H 24 H Creatinine 1.51 H 1.51 H 1.07 Calcium 10.0 9.5 9.2 Hematology 08/03/23 08/04/23 14:15 06:15 WBC 10.2 9.3 Hgb 16.3 15.5 Plt Count 225 173 Urinalysis 08/04/23 05:55 Urine Color Yellow Urine Appearance Clear Urine pH 5.0 Ur Specific [place] 1.015 Urine Protein Negative Urine Glucose (UA) Negative Urine Ketones Trace Urine Blood Negative Urine Nitrite Negative Ur Leukocyte Esterase Negative Assessment and Plan (1) TRACY (acute kidney injury): Status: Acute Plan . TRACY most likely due to hypoperfusion from volume depletion. Renal function is improved with hydration. Creatinine is down to 1.07 today. Urine appears bland without any significant proteinuria hematuria. ; glomerular nephritis or interstitial disease seems unlikely. For now I would recommend to continue IV hydration for 1 more day. Keep intake more than output. Watch renal function. She will follow as needed. Procedures Date of Service Date of Service: 08/05/23
--- NOTE | 2023-08-05 13:43 | MHC.SL.DTX ---
Dysphagia Diet modifications: Last documented Solid diet consistencies: Regular Last documented Liquid consistency: Thin Last documented Medication Administration: Changes made to current diet?: No Liquid Consistency and Strategies: Liquid Intake Recommendation: Thin Compensatory Strategies for Safe Swallow: Small Sips Compensatory Strategies for Safe Swallow(b): Sitting Upright (90 deg) Small Bites and Sips Alternate Liquids/Solids Rate of Ingestion Change Solid Food Consistency: Dietary Recommendations: Regular Additional Modifications to Solids: Unremarkable exam. Recommend continue on REGULAR texture diet and THIN liquids, pills WHOLE in LIQUID. Given recent choking event and hx CVAs as risk factor, recommend direct supervision and aspiration precautions. Patient was counselled on safe eating behaviors. CENTRAL OFFICE SUPERVISOR to f/u 1-2x to monitor tolerance. Oral Medication Intake: Whole with Liquid Strategies and Precautions to be Taken for Safe Swallow: Sitting Upright (90 deg) Small Bites and Sips Alternate Liquids/Solids Rate of Ingestion Change Supervision While Eating and/Drinking: Total Supervision (1:1) Foods to Avoid: Swallowing Recommended Treatments: Compens. Strategy Educat. Level of Impact on: Daily activities: Interpersonal interactions: Education: Employment: Community: Prognosis for Improvement: Recommendation for Speech: Inpatient Speech Therapy Comment: 1-2 f/u Frequency/Duration: Date Range for Service Req: Timeline to reassess: Additional Comments: Treatment: Pt was eating his Lunch tray of regular solids with thin liquids on arrival, independently feeding himself with no overt s/s of aspiration, no barriers to adequate nutrition identified. Continue to recommend REGULAR SOLIDS and THIN LIQUIDS. MEDS WHOLE. No further CENTRAL OFFICE SUPERVISOR intervention recommended. Assessment: Hay Rake Operator Clinican/Clinical Fellow: No Supervisory Statement: I have reviewed and agree with the student/clinical fellow's documentation: N/A Speech Language Pathologist: Jersey Short M.A., [facility])-CENTRAL OFFICE SUPERVISOR
--- OUTSIDE RECORDS SUMMARY | 2023-08-08 08:57 | XMS_ITS | Continuity of Care Document ---
Author Organization [facility] Address [address] [place] [address]- Care Team Providers Care Brick Yard Hand Name Role Phone Ainsley Lambert MD Primary Care Physician Encounter [facility] [place] Date(s): 12/07/20 - 01/06/21 [facility] [address] [place], [place] [address] Attending Physician: Opal Altamirano Admitting Physician: AdmtrOpal Referring Physician: Admtr, ArMaury Allergies, Adverse Reactions, Alerts No Known Medication Allergies Immunizations Given and Recorded Vaccine Date Status Refusal Reason SARS-CoV-2 (COVID-19) mRNA BNT-162b2 vac 1 05/02/20 Given 1Result Comment: Documented from downtime form, MP,RN Medications amLODIPine 5 mg oral tablet 5 mg, 1, tablet, By Mouth, Daily, # 30 tablet, Refills 0, Maintenance, 03/23/16 19:58:09 Start Date: 03/23/16 Status: Ordered atorvastatin 20 mg oral tablet 1 tablet = 20 mg, By Mouth, Daily, # 30 tablet, 0 Refills, Maintenance, Tablet Start Date: 03/23/16 Status: Ordered FLOVENT HFA 220 MCG/ACT AERO FLOVENT HFA 220 MCG/ACT AERO, 0 Refills, Maintenance, 12/01/18 10:41:52 EDT Start Date: 12/01/18 Status: Ordered indomethacin 25 mg oral capsule 1 capsule = 25 mg, By Mouth, 3 times a day, PRN for gout pain, # 30 capsule, 0 Refills, Maintenance, 01/31/19 14:21:25 EST, Capsule Start Date: 01/31/19 Status: Ordered lisinopril 40 mg oral tablet 1 tablet = 40 mg, By Mouth, Daily, # 30 tablet, 0 Refills, Maintenance, 03/23/16 19:58:21, Tablet Start Date: 03/23/16 Status: Ordered METOPROLOL TARTRATE 50 MG TABS METOPROLOL TARTRATE 50 MG TABS, 0 Refills, Maintenance, 12/01/18 10:41:47 EDT Start Date: 12/01/18 Status: Ordered PROAIR HFA 108 MCG/ACT AERS PROAIR HFA 108 MCG/ACT AERS, 0 Refills, Maintenance, 12/01/18 10:41:54 EDT Start Date: 12/01/18 Status: Ordered XARELTO 20 MG TABS XARELTO 20 MG TABS, 0 Refills, Maintenance, 12/01/18 10:42:03 EDT Start Date: 12/01/18 Status: Ordered Social History Social History Type Response Smoking Status Former smoker; Other : quit 1974; entered on: 04/30/16 Sex
--- OUTSIDE RECORDS SUMMARY | 2023-08-08 08:57 | XMS_ITS | Continuity of Care Document ---
Author Organization [facility] Address [address] [place] [address]- Care Team Providers Care Cubing Machine Tender Name Role Phone Ainsley Lambert MD Primary Care Physician [place] [facility] [place](s): 12/04/20 - 01/03/21 [facility] [address] [place] [address]- Attending Physician: Opal Altamirano Admitting Physician: AdmtrOpal Referring Physician: AdmtrOpal Allergies, Adverse Reactions, Alerts No Known Medication Allergies Immunizations Given and Recorded Vaccine Date Status Refusal Reason SARS-CoV-2 (COVID-19) mRNA BNT-162b2 vac 1 05/02/20 Given 1Result Comment: Documented from downtime form, ERICK,RN Medications amLODIPine 5 mg oral tablet 5 [...]
--- OUTSIDE RECORDS SUMMARY | 2023-08-08 08:57 | XMS_ITS | Continuity of Care Document ---
Author Organization [facility] Address [address] [place] [id number]- Care Team Providers Care Dental Assisting Instructor Name Role Phone Ainsley Lambert MD Primary Care Physician [place] [facility] [place] - 08/[place]/22 [facility] [address] [place], [place] [address] Attending Physician: Opal Altamirano Admitting Physician: Admtr, Opal Referring Physician: Admtr, Ar8 Allergies, Adverse Reactions, Alerts No Known Medication [...] : quit 1974; entered on: 04/30/16 Sex Patient Care team information Care Team Personnel Name: Vira Rivera RN Position: S RN Member Role: Primary Care Nurse Name: Aniya Ybarra NP Position: [facility] Associate Professional Member Role: Primary Care Nurse Address: Address: [facility] [place] [address]- Name: Marzena Bojorquez RN Position: S RN Member Role: Primary Care Nurse Name: Shad Chowdhury RN Position: S RN Member Role: Primary Care Nurse Name: Reina Hoover RN Position: [facility] Rigoberto RN Member Role: Primary Care Nurse Name: Sharon Holt RN Position: [facility] RN Member Role: Primary Care Nurse Name: Ainsley Lambert MD Position: Reference Physician Member Role: PCP Address: Address: [address] [place] [address]- [place] Name: Damari Ybarra RN Position: [facility] SN RN Member Role: Primary Care Nurse Name: Cass Hernadez RN Position: S RN Member Role: Primary Care Nurse Care Team Related Persons Name: CATHY SUMANTH Address: home [address] [place] [address] Name: LIZZETH GONZALEZ Address: home [address] [place] [id number]
--- OUTSIDE RECORDS SUMMARY | 2023-08-08 08:57 | XMS_ITS | Continuity of Care Document ---
Author Organization [facility] Address [address] [place] [address]- Care Team Providers Care Manager Of Data Name Role Phone Ainsley Lambert MD Primary Care Physician Encounter [facility] Date(s): 09/08/20 - 01/06/21 [facility] [address] [place] [id number] Attending Physician: Marita LYLES, Yareli Valverde Admitting Physician: Marita LYLES, Yareli Valverde Referring Physician: iAnsley Lambert MD Allergies, Adverse Reactions, Alerts No Known Medication [...]
--- OUTSIDE RECORDS SUMMARY | 2023-08-08 08:57 | XMS_ITS | Continuity of Care Document ---
Author Organization [facility] Address [address] [place] [address]- Care Team Providers Care Warehouse Insulation Worker Name Role Phone Ainsley Lambert MD Primary Care Physician [place] [facility] [place] 07[place]/21 [facility] [address] [place] [address]- Attending Physician: Marita LYLES, Yareli Valverde Admitting Physician: Marita LYLES, Yareli Valverde Referring Physician: Marita LYLES, Yareli Valverde Allergies, Adverse Reactions, Alerts No Known Medication [...] 10:42:03 EDT Start Date: 12/01/18 Status: Ordered Vital Signs Most recent to oldest [Reference Range]: 1 Height 165 cm (07/10/21 12:52 PM) Weight 70.3 kg (07/10/21 12:52 PM) Oxygen Saturation [94-100 %] 97 % (07/10/21 12:52 PM) Pulse Rate [55-90 bpm] 80 bpm (07/10/21 12:52 PM) Body Mass Index [18.5-24.99] 25.82 *H* (07/10/21 12:52 PM) Blood Pressure [90-138/55-84 mm Hg] 142/ 80mm Hg *H* (07/10/21 12:52 PM) Mode of Delivery (Oxygen) Room air (07/10/21 12:52 PM) Blood pressure sites Arm, left (07/10/21 12:52 PM) Dry Weight 70.3 kg (07/10/21 12:52 PM) Weight Obtained Via Patient/family state d (07/10/21 12:52 PM) Dry Weight Obtained Via Patient/family s tated (07/10/21 12:52 PM) Social History Social History Type Response Smoking Status Former smoker; Other : quit 1974; entered on: 04/30/16 Sex
--- OUTSIDE RECORDS SUMMARY | 2023-08-08 08:57 | XMS_ITS | Continuity of Care Document ---
Author Organization [facility] Address [address] [place] [address]- Care Team Providers Care Accounts Receivable Manager Name Role Phone Ainsley Lambert MD Primary Care Physician [place] [facility] [place]): [place] - 08/09/22 [facility] [address] [place], [place] [address] Attending Physician: Opal Altamirano Admitting Physician: Admtr, Opal Referring Physician: Admtr, ArMaury Allergies, Adverse Reactions, [...] Care Nurse Name: Aniya Ybarra NP Position: [facility] Associate Professional Member Role: Primary Care Nurse Address: Address: [address] [place] [address]- Name: Marzena Bojorquez RN Position: S RN Member Role: Primary Care Nurse Name: Shad Chowdhury RN Position: S RN Member Role: Primary Care Nurse Name: Reina Hoover RN Position: [facility] Rigoberto RN Member Role: Primary Care Nurse Name: Sharon Holt RN Position: S RN Member Role: Primary Care Nurse Name: Ainsley Lambert MD Position: Reference Physician Member Role: PCP Address: Address: [address] [place] [address]- [place] Name: Damari Ybarra RN Position: [facility] SN RN Member Role: Primary Care Nurse Name: Cass Hernadez RN Position: S RN Member Role: Primary Care Nurse Care Team Related Persons Name: SUMANTH MORGAN Address: home [address] [place] [address] Name: LIZZETH GONZALEZ Address: home [address] [place] [address]
--- OUTSIDE RECORDS SUMMARY | 2023-08-08 08:57 | XMS_ITS | Continuity of Care Document ---
Author Organization [facility] Address [address] [place] [id number]- Care Team Providers Care Gas Distribution And Emergency Clerk Name Role Phone Ainsley Lambert MD Primary Care Physician Encounter [facility] [place] Date(s): 12/02/19 - 12/09/19 [facility] [address] [place] [address]- [facility] Attending Physician: Yareli Kirkland NP Admitting Physician: Marita LYLES, Yareli Valverde Referring Physician: Ainsley Lambert MD Allergies, Adverse Reactions, Alerts No Known Medication Allergies Medications amLODIPine 5 mg oral tablet 5 [...] oldest [Reference Range]: 1 Height 165 cm (12/02/19 1:24 PM) Weight 71.61 kg (12/02/19 1:24 PM) Oxygen Saturation [94-100 %] 97 % (12/02/19 1:24 PM) Pulse Rate [55-90 bpm] 68 bpm (12/02/19 1:24 PM) Body Mass Index [18.5-24.99] 26.3 *H* (12/02/19 1:24 PM) Blood Pressure [90-138/55-84 mm Hg] 128/ 90mm Hg (12/02/19 1:24 PM) Blood pressure sites Arm, left (12/02/19 1:24 PM) Weight Obtained Via Patient/family state d (12/02/19 1:24 PM) Social History Social History Type Response Smoking Status Former smoker; Other : quit 1974; entered on: 04/30/16 Sex
--- OUTSIDE RECORDS SUMMARY | 2023-08-08 08:57 | XMS_ITS | Continuity of Care Document ---
Author Organization [facility] Address [address] [place] [address]- Care Team Providers Care Rope Walker Name Role Phone Ainsley Lambert MD Primary Care Physician Encounter [facility] Date(s): 04/17/22 - 08/15/22 [facility] [address] [place] [id number] Attending Physician: Marita LYLES, Yareli Valverde [...] Team Personnel Name: Vira Rivera RN Position: [facility] RN Member Role: Primary Care Nurse Name: Aniya Ybarra NP Position: [facility] PCO Associate Professional Member Role: Primary Care Nurse Address: Address: [address] [place] [address]- Name: Marzena Bojorquez RN Position: [facility] RN Member Role: Primary Care Nurse Name: Shad Chowdhury RN Position: S RN Member Role: Primary Care Nurse Name: Reina Hoover RN Position: [facility] Rigoberto RN Member Role: Primary Care Nurse Name: Sharon Holt RN Position: [facility] RN Member Role: Primary Care Nurse Name: Ainsley Lambert MD Position: Reference Physician Member Role: PCP Address: Address: [address] [place] [address]- Name: Damari Ybarra RN Position: [facility] RN Member Role: Primary Care Nurse Name: Cass Hernadez RN Position: [facility] RN Member Role: Primary Care Nurse Care Team Related Persons Name: MORGANLILLIAN COLORADOIS Address: home [address] [place] [address] Name: LIZZETH GONZALEZ Address: home [address] [place] [address]
--- OUTSIDE RECORDS SUMMARY | 2023-08-08 08:57 | XMS_ITS | Continuity of Care Document ---
Author Organization [facility] Address [address] [place] [address]- Care Team Providers Care Business Operations Analyst Name Role Phone Ainsley Lambert MD Primary Care Physician Encounter [facility] [place] Date(s): 12/02/19 - 01/01/20 [facility] [address] [place] [address]- [facility] Attending Physician: Opal Altamirano Admitting Physician: Opal Altamirano Referring Physician: AdmtrOpal Allergies, Adverse Reactions, Alerts [...]
--- OUTSIDE RECORDS SUMMARY | 2023-08-08 08:57 | XMS_ITS | Continuity of Care Document ---
Author Organization [facility] Address [address] [place] [address]- Care Team Providers Care Deputy District Customs Director Name Role Phone Ainsley Lambert MD Primary Care Physician Encounter [facility] [place] Date(s): 04/11/22 - 08/09/22 [facility] [address] [place] [id number] Attending Physician: Marita LYLES, Yareli Valverde Admitting [...] Team Personnel Name: Vira Rivera RN Position: [facility] RN Member Role: Primary Care Nurse Name: Aniya Ybarra NP Position: [facility] PCO Associate Professional Member Role: Primary Care Nurse Address: Address: [address] [place] [address]- Name: Marzena Bojorquez RN Position: [facility] RN Member Role: Primary Care Nurse Name: Shad Chowdhury RN Position: S RN Member Role: Primary Care Nurse Name: Reina Hoover RN Position: [facility] Rigoberto RN Member Role: Primary Care Nurse Name: Sharon Holt RN Position: [facility] RN Member Role: Primary Care Nurse Name: Ainsley Lambert MD Position: Reference Physician Member Role: PCP Address: Address: [address] [place] [address]- [place] Name: Damari Ybarra RN Position: [facility] RN Member Role: Primary Care Nurse Name: aCss Hernadez RN Position: [facility] RN Member Role: Primary Care Nurse Care Team Related Persons Name: SUMANTH MORGAN Address: home [address] [place] [address] Name: LIZZETH GONZALEZ Address: home [address] [place] [address]
--- OUTSIDE RECORDS SUMMARY | 2023-08-08 08:57 | XMS_ITS | Continuity of Care Document ---
Author Organization [facility] Address [address] [place] [address]- Care Team Providers Care Math Coach Name Role Phone Ainsley Lambert MD Primary Care Physician Encounter [facility] Date(s): 12/02/19 - 01/01/20 [facility] [address] [place] [address]- [facility] Attending Physician: Opal Altamirano Admitting Physician: Opal [...]
--- OUTSIDE RECORDS SUMMARY | 2023-08-08 08:57 | XMS_ITS | Continuity of Care Document ---
Author Organization [facility] Address [address] [place] [address]- Care Team Providers Care Component Prep Operator Name Role Phone Ainsley Lambert MD Primary Care Physician Encounter [place] Date(s): 07/10/21 - 08/09/21 [facility] [address] [place], [place] [address] Attending Physician: Opal Altamirano Admitting Physician: Admtr, [...]
== END 2023-08-05 14:38 | disposition home or self-care (01) | DRG 158 ==
LOC: HO.ED 15:58 → HO.EDOVER 18:10 → HO.IMC 08-04 00:16
PROVIDERS: Internal Medicine; Physician Assistant; Admitting Provider Student in an Organized Health Care Education/Training Program; Emergency Provider Emergency Medicine; PCP Nurse Practitioner Primary Care; Visit Provider Nurse Practitioner Acute Care
DX: T18.0XXA Foreign body in mouth, initial encounter (principal); I48.19 Other persistent atrial fibrillation; N17.9 Acute kidney failure, unspecified; R06.03 Acute respiratory distress; W44.F3XA Food entering into or through a natural orifice, initial encounter; I10 Essential (primary) hypertension; E78.5 Hyperlipidemia, unspecified; Z20.822 Contact with and (suspected) exposure to COVID-19; Z86.73 Personal history of transient ischemic attack (TIA), and cerebral infarction without residual deficits; Z79.01 Long term (current) use of anticoagulants; Z79.899 Other long term (current) drug therapy
CPT/HCPCS: 36415; 71045; 76775; 80048; 80053; 81003; 82947; 83880; 84145; 84484; 85025; 85027; 85379; 85610; 85730; 87633; 92610; 93005; 93306; 94640; 97161; 99285; J1940; J2919; J3475

== ENCOUNTER → 2023-08-03 14:16 | Outpatient (BNV) | payer OTHER, SELFPAY | PROVIDERS: Admitting Provider Student in an Organized Health Care Education/Training Program; Emergency Provider Emergency Medicine; PCP Family Medicine; Visit Provider Internal Medicine Cardiovascular Disease | DX: R07.9 Chest pain, unspecified (principal) | CPT/HCPCS: 93010 ==

== ENCOUNTER 2023-08-03 18:02 | Outpatient (BNV) | payer OTHER, SELFPAY | END 2023-08-04 07:00 | PROVIDERS: Admitting Provider Student in an Organized Health Care Education/Training Program; Emergency Provider Emergency Medicine; PCP Family Medicine; Visit Provider Internal Medicine Cardiovascular Disease | DX: I51.7 Cardiomegaly (principal); I35.1 Nonrheumatic aortic (valve) insufficiency; I34.0 Nonrheumatic mitral (valve) insufficiency; I36.1 Nonrheumatic tricuspid (valve) insufficiency | CPT/HCPCS: 93306 ==

== ENCOUNTER → 2023-08-03 18:02 | Outpatient (BNV) | payer OTHER, SELFPAY | PROVIDERS: Admitting Provider Student in an Organized Health Care Education/Training Program; Emergency Provider Emergency Medicine; PCP Family Medicine; Visit Provider Student in an Organized Health Care Education/Training Program | DX: N17.9 Acute kidney failure, unspecified (principal); R06.03 Acute respiratory distress; E78.5 Hyperlipidemia, unspecified | CPT/HCPCS: 99223; 99231; 99239 ==

== ENCOUNTER → 2023-08-03 18:02 | Outpatient (BNV) | payer OTHER, SELFPAY | PROVIDERS: Admitting Provider Student in an Organized Health Care Education/Training Program; Emergency Provider Emergency Medicine; PCP Nurse Practitioner Primary Care; Visit Provider Internal Medicine Hypertension Specialist | DX: N17.9 Acute kidney failure, unspecified (principal) | CPT/HCPCS: 99222 ==

== ENCOUNTER 2023-09-11 11:54 | Outpatient (REF) | payer OTHER, SELFPAY ==
--- NOTE | ~2023-09-11 | XR_ITS ---
EXAMINATION: XR HAND, LEFT CLINICAL INFORMATION: PAIN ON HIS 5TH FINGER LEFT HAND AFTER DEEP CUT/TRAUMA 10 DAYS AGO. COMPARISON: Left hand and wrist 07/20/2018 TECHNIQUE: PA, lateral, and oblique views of the left hand. FINDINGS: Severe degenerative changes are present at all DIP joints with lesser changes at the PIP joints most marked in the fifth digit with some mild deformity of the distal end of the proximal phalanx possibly secondary to remote trauma. Mild degenerative change seen at the third MCP joint. Marked degenerative change seen at the first CMC joint and triscaphe joint. Periosteal reaction around the middle phalanx of the fourth digit probably secondary to remote trauma. No acute fractures or radiopaque foreign bodies are seen. XR/XR hand LT min 3V IMPRESSION: Degenerative changes as described above. No acute fractures are seen.
== END 2023-09-11 11:55 | disposition home or self-care (01) ==
LOC: HO.HHCX 11:54
PROVIDERS: Visit Provider Internal Medicine
DX: M79.645 Pain in left finger(s) (principal)
CPT/HCPCS: 73130

== ENCOUNTER 2023-09-14 09:09 | Emergency (ER) | payer OTHER, SELFPAY ==
[2023-09-14 09:12] VITALS: BP 142/82; PULSE 72; RESP 24; TEMP 36.2; O2SAT 97; BMI 25.0
--- NOTE | 2023-09-14 09:19 | ED.GENADULT ---
HPI - General Adult General Chief complaint: Skin/Abscess/Foreign Body Stated complaint: Bee sting? swollen L hand Time Seen by Provider: 09/14/23 09:18 Source: patient and director of sustainability Mode of arrival: ambulatory Limitations: language barrier History of Present Illness ED Provider: Mandeep [facility] narrative: Patient is an 88-year-old right-hand dominant male with history of HTN, CVA, AFib on rivaroxaban presenting to the emergency department with swelling to left hand after being stung by a wasp last night. He denies any pain or itching. Reports slight decreased range of motion to fingers due to swelling. Brought the wasp with him to the emergency department. He did not take any [id number]-[id number] medications prior to arrival. MD complaint: left hand swelling Onset (ago): hour(s) Location: left and upper extremity Associated symptoms: denies other symptoms Treatments prior to arrival: none Related Data Home Medications ?Medication ?Instructions ?Recorded ?Confirmed amlodipine 5 mg tablet 5 mg PO DAILY 07/18/20 08/03/23 atorvastatin 20 mg tablet 20 mg PO DAILY 07/18/20 08/03/23 lisinopril 40 mg tablet 40 mg PO DAILY 07/18/20 08/03/23 rivaroxaban 20 mg tablet 20 mg PO BEDTIME 07/18/20 08/03/23 Previous Rx's ?Medication ?Instructions ?Recorded metoprolol tartrate 50 mg tablet 75 mg (1.5 x 50 mg) PO BID #270 12/26/21 tabs Allergies Allergy/AdvReac Type Severity Reaction Status Date / Time No Known Allergies Allergy Verified 09/14/23 09:13 [No Known Allergies*] Review of Systems Review of Systems: As per HPI. Yes all other systems are reviewed and are negative Constitutional: Constitutional: Reports as per HPI [facility] Past Medical History Medical History Other and unspecified hyperlipidemia Essential hypertension Subdural hematoma Arterial embolism Cerebrovascular accident (CVA) Permanent atrial fibrillation Surgical History History of embolectomy (~04/2016) Family History Family History Father No problems noted. Mother No problems noted. Social History Social History Household Members: None Housing: House Do you presently have visiting nurse or other home services: No Patient Tobacco Use Status: Tobacco use Unknown Advance Directives: Yes Advance Directives on File: Yes Advance Directives Date on File: 08/06/23 service: No Physical Exam ED Vital Signs: Vital Signs - 24 hr 09/14/23 09:12 Temperature 97.1 F Pulse Rate 72 Respiratory Rate 24 H Blood Pressure 142/82 H Pulse Oximetry 97 Oxygen Delivery Method Room Air BMI result Body Mass Index 25.0 Vital signs have been reviewed and appear to be correct. Blood pressure normal. Heart rate normal. Respiratory rate normal. Temperature normal. Oxygen saturation normal. Const General: cooperative, healthy appearing and no acute distress Orientation/consciousness: oriented to person, oriented to place, oriented to time and patient oriented x3 Limitations: no limitations HENMT Head: Yes normocephalic and Yes atraumatic Ears: external ears normal General nose exam: Normal external nose present Face and sinus: Yes face symmetric Mouth: lip normal, tongue normal, oropharynx normal, moist mucous membranes, no audible dysphonia and no drooling Throat: Yes uvula midline and No uvular edema Eyes Pupils: Equal, round and reactive pupils present Neck Neck: Yes normal visual inspection and Yes supple Resp Effort & Inspection: normal respiratory effort and able to speak in complete sentences Auscultation: clear to auscultation bilaterally Cardio Rate: regular rate Rhythm: regular rhythm Heart sounds: S1 normal heart sound present and S2 normal heart sound present GI Palpation (GI): Soft to palpation and nontender Auscultation: normoactive bowel sounds General: Yes no CVA tenderness Back/Spine/Pelvis Back: no CVA tenderness Skin General skin exam: elasticity normal and turgor normal Neuro General: oriented to person, oriented to place, oriented to time, patient oriented x3, moves all extremities, no focal motor deficits and CN's II-XI intact bilaterally Cranial nerves: Yes Equal, round and reactive pupils present Cognition (Neuro): normal cognition Extrem Other: General: Yes full ROM, Yes no pedal edema and Yes no calf tenderness Left upper extremity: hand (no erythema) Details: normal capillary refill, neuromotor exam normal, neurosensory exam normal, vascular exam Details: radial pulse present and normal capillary refill, normal ROM of fingers and swelling Location: of the dorsal hand (diffuse); no tenderness and no unusual warmth Psych Mental Status: mental status grossly normal Affect: normal affect Thought process: Normal thought process present Medical Decision Making Medical Decision Making [facility] Narrative: Patient is an 88-year-old right-hand dominant male with history of HTN, CVA, AFib on rivaroxaban presenting to the emergency department with swelling to left hand after being stung by a wasp last night. On exam patient is awake, A+Ox3, VS WNL, afebrile, normal neurological exam without focal deficits, physical exam findings as above. Given reported symptoms and physical exam findings, initial differential includes insect bite, cellulitis. Do not suspect cellulitis at this time as patient has good ROM, no erythema or warmth. He is not diabetic. Patient medicated with loratadine in the emergency department and advised to use loratadine or Claritin daily as well as apply ice intermittently. Strict return precautions discussed with patient at bedside. Instructed patient to follow-up with PCP. Patient verbalized understanding of and agreement with plan. Assessment, plan, and return precautions all interpreted with in-person entry level electrician at bedside. Differential Diagnosis Differential Diagnoses: The differential diagnosis associated with the presentation includes As per MDM. External Record Review External record reviewed: Inpatient record, Office record and Outpatient record Discharge Plan Discharge Clinical Impression: Insect bite, Localized swelling on left hand Patient Disposition: Home, Self-Care Instructions: Insect Bite or Sting (ED), Cold Compress or Soak (ED) Additional Instructions: You were evaluated in the emergency department today for swelling to your left hand after being stung by a wasp. We recommend that you take a daily antihistamine such as loratadine (Claritin) or cetirizine (Zyrtec). We also recommend applying cool compresses for 10-15 minutes several times daily to decrease swelling. Follow-up with your primary care provider. Return to the emergency department if you develop redness, warmth, increased swelling, fevers or any other concerning symptoms. Prescriptions: No Action metoprolol tartrate 50 mg tablet 75 mg PO BID Qty: 270 1RF Rx Instructions: Overdue for follow up appt. Please call our office to schedule appointment so we can continue filling your prescriptions. [phone]. atorvastatin 20 mg tablet 20 mg PO DAILY lisinopril 40 mg tablet 40 mg PO DAILY amlodipine 5 mg tablet 5 mg PO DAILY rivaroxaban 20 mg tablet 20 mg PO BEDTIME Print Language: Canadian
[2023-09-14] MEDS: Loratadine 10 MG TABLET PO (09:56)
[2023-09-14 09:59] VITALS: BP 142/82; PULSE 72; RESP 20; TEMP 36.2; O2SAT 97
== END 2023-09-14 10:00 | disposition home or self-care (01) ==
PROVIDERS: Emergency Provider Emergency Medicine; PCP Nurse Practitioner Primary Care
DX: M79.89 Other specified soft tissue disorders (principal); T63.441A Toxic effect of venom of bees, accidental (unintentional), initial encounter; Y92.9 Unspecified place or not applicable
CPT/HCPCS: 99282

== ENCOUNTER 2023-09-30 14:47 | Outpatient (AMB) | payer OTHER, SELFPAY ==
--- NOTE | 2023-09-30 14:57 | HO.NEPHOV ---
Vital Signs 09/30/23 14:58 Height 5 ft 5 in Weight 160 lb BMI 26.6 BP 132/76 Blood Pressure Location Rt brachial Position Sitting Pulse 61 Pulse Source Pulse Oximeter Pulse Oximetry (%) 96 Oxygen Delivery Method Room Air Intake Visit Reasons: CKD STG 3B- Confirmed Automotive Maintenance Technician Required: Yes Automotive Maintenance Technician Name: Shade Wong Accompanied by: Self / Same As Patient Allergies No Known Allergies [No Known Allergies*] Allergy (Verified 09/30/23 15:00) Medication List - Last Reconciled 09/30/23 by Marlon Lam MD amlodipine 5 mg PO DAILY atorvastatin 20 mg PO DAILY lisinopril 40 mg PO DAILY metoprolol tartrate 75 mg (1.5 x 50 mg) PO BID rivaroxaban 20 mg PO BEDTIME HPI Comments Details: 88-year-old male with a PMH significant for?HTN, HLD, persistent AFib on Xarelto, hx of CVA in 2014 and 2017, hx of subdural hematoma in 2016, and arterial embolism s/p embolectomy He was hospitalized on 08/03/2023 and was found to have serum creatinine 1.07. Two days later at the time of discharge creatinine was 1.07 and this is probably his baseline. He has a history of bilateral renal cyst. This cyst are reportedly unchanged from the imaging done in 2016 and 2008. He has been referred for evaluation of renal cysts as well as renal insufficiency. He is hard of hearing he forgot his hearing aids today. It was rather difficult to communicate with him despite having the merry go round attendant over the phone. [facility] Medical History Other and unspecified hyperlipidemia Essential hypertension Subdural hematoma Arterial embolism Cerebrovascular accident (CVA) Permanent atrial fibrillation Surgical History History of embolectomy (~04/2016) Family History Father No problems noted. Mother No problems noted. Social History Household Members: None Housing: House Do you presently have visiting nurse or other home services: No Patient Tobacco Use Status: Tobacco use Unknown Advance Directives Date on File: 08/06/23 service: No Review of Systems Const Unobtainable due to mental condition Physical Exam Vital Signs: Last Vital Signs Pulse 61 09/30/23 14:58 BP 132/76 09/30/23 14:58 Pulse Ox 96 09/30/23 14:58 Oxygen Delivery Method Room Air 09/30/23 14:58 BMI result Body Mass Index 26.6 Const General: comfortable; No acute distress Orientation/consciousness: patient oriented x3 Eyes General: appearance normal, both eyes and all related structures Visual Caro: normal visual caro by confrontation Neck Neck: Yes supple and Yes no JVD Resp Effort & Inspection: normal respiratory effort and respiratory effort not decreased Auscultation: rhonchi Cardio Palpation: no palpable S3 and no palpable S4 Heart sounds: no rubs GI Inspection: Yes normal to inspection Palpation (GI): Soft to palpation Percussion: Yes normal to percussion Auscultation: normal bowel sounds General: Yes no CVA tenderness Back/Spine/Pelvis Back: no CVA tenderness Skin General skin exam: no petechiae and no purpura Neuro General: patient oriented x3 and no focal motor deficits Extrem General: No clubbing and No edema Results Reviewed Results Reviewed: Renal ultrasound. 08/21/2023. 1. Bilateral renal cysts, some of which are complex with multiple septations. If further workup is desired, MRI would be the exam of choice for further evaluation, in this patient with renal failure. However, if no therapy would be considered if an enhancing portion of the mass is seen, no further workup is probably necessary. 2. Bilateral renal cortical thinning and increased echogenicity consistent with medical renal disease. 3. A superimposed cause for renal function worsening could be cortical thinning. Nephrology Results: Hgb 15.5 g/dl (14.0-18.0) 08/04/23 WBC 9.3 X10*3/uL (4.8-10.8) 08/04/23 Plt Count 173 X10*3/uL (160-400) 08/04/23 Sodium 139 mmol/L (135-145) 08/05/23 Potassium 4.3 mmol/L (3.3-5.1) 08/05/23 Chloride 103 mmol/L (96-108) 08/05/23 Carbon Dioxide 26 mmol/L (22-29) 08/05/23 BUN 24 mg/dL (9-16) H 08/05/23 Creatinine 1.07 mg/dL (0.5-1.4) 08/05/23 Calcium 9.2 mg/dL (8.4-10.2) 08/05/23 Urine Protein Negative mg/dL (Neg-Trace) 08/04/23 Renal US 08/04/23 Assessment & Plan Assessment & Plan (1) Essential hypertension: Code(s): I10 - Essential (primary) hypertension Category: Medical (2) Renal cyst: Code(s): N28.1 - Cyst of kidney, acquired Category: Medical Plan 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 This has resolved and creatinine is back to baseline of 1.07. Nader has a history of renal cyst. He has multiple renal cysts in both kidneys some of them are rather complex no solid masses has been reported. These findings are compatible to the imaging done in 2016 and 2008. At this point, since there is cyst remained unstable I think we should continue to monitor. If there is any suspicious cyst then it would be worthwhile to proceed with an MRI. I would check urine for cytology and urine protein creatinine ratio. Goal is to slow the portion disease Continue overt nephrotoxic agents since including NSAIDs Avoid hypotension. Optimize blood pressure and maintain less than 130/80 Encouraged him to stay on low-sodium diet Increase fluid intake. Further workup will be based on the outcome of the above investigations He returned to office in the next few weeks and I have encouraged him to come back with his hearing aids. Orders: Orders Basic Metabolic Panel Today I10 - Essential (primary) hypertension, N18.9 - Chronic kidney disease, unspecified UA and rflx microscopic Today I10 - Essential (primary) hypertension, N18.9 - Chronic kidney disease, unspecified Urine Cytology Today R31.9 - Hematuria, unspecified Total Protein Urine Random Today I10 - Essential (primary) hypertension, N18.9 - Chronic kidney disease, unspecified Creatinine Urine Today I10 - Essential (primary) hypertension, N18.9 - Chronic kidney disease, unspecified Coding Level of Care Code New Pt Level 4 (39774) Diagnoses Essential hypertension I10 Renal cyst N28.1
[2023-09-30 14:58] VITALS: BP 132/76; PULSE 61; O2SAT 96; BMI 26.6
== END 2023-09-30 15:10 | disposition home or self-care (01) ==
PROVIDERS: PCP Nurse Practitioner Primary Care; Referring Provider Nurse Practitioner Primary Care; Visit Provider Internal Medicine Hypertension Specialist
DX: I12.9 Hypertensive chronic kidney disease with stage 1 through stage 4 chronic kidney disease, or unspecified chronic kidney disease (principal); N18.32 Chronic kidney disease, stage 3b; N28.1 Cyst of kidney, acquired
CPT/HCPCS: 99214

== ENCOUNTER 2023-09-30 14:47 | Outpatient (REF) | payer OTHER, SELFPAY ==
[2023-09-30 16:17] LABS: Anion Gap 10 (12-20); Blood Urea Nitrogen 13 mg/dL (9-16); Calcium 9.5 mg/dL (8.4-10.2); Carbon Dioxide 29 mmol/L (22-29); Chloride 106 mmol/L (96-108); Estimated Glomerular Filt Rate 53; Glucose Random 92 mg/dL (60-115); Potassium 4.7 mmol/L (3.3-5.1); Sodium 140 mmol/L (135-145)
[2023-09-30 17:41] LABS: Appearance Urine Clear; Color Urine Yellow; Glucose Urine UA Negative (Negative); Leukocyte Esterase Urine Negative (Negative); Nitrite Urine Negative (Negative); PH 5.5 (5.0-9.0); Specific Gravity - Urine 1.015 (1.005-1.025); Urine Blood Negative (Negative); Urine Ketones Negative (Negative); Urine Protein Negative (Neg-Trace)
[2023-09-30 18:13] LABS: Urine Cytology See Pathology rpt
[2023-09-30 18:26] LABS: Total Protein Urine Random 8 mg/dL (<12)
== END 2023-09-30 14:48 | disposition home or self-care (01) ==
LOC: HO.LAB 14:47
PROVIDERS: PCP Nurse Practitioner Primary Care; Referring Provider Nurse Practitioner Primary Care; Visit Provider Internal Medicine Hypertension Specialist
DX: I12.9 Hypertensive chronic kidney disease with stage 1 through stage 4 chronic kidney disease, or unspecified chronic kidney disease (principal); N18.9 Chronic kidney disease, unspecified; R31.9 Hematuria, unspecified; N28.1 Cyst of kidney, acquired
CPT/HCPCS: 36415; 80048; 81003; 82570; 84156; 88112; 99212

== ENCOUNTER 2023-10-30 11:43 | Outpatient (AMB) | payer OTHER, SELFPAY ==
[2023-10-30 11:44] VITALS: BP 160/82; PULSE 75; O2SAT 97; BMI 26.1
--- NOTE | 2023-10-30 11:44 | HO.NEPHOV ---
Vital Signs 10/30/23 11:44 10/30/23 11:57 Height 5 ft 5 in Weight 157 lb BMI 26.1 BP 160/82 H 140/80 H Blood Pressure Location Lt brachial Lt brachial Position Sitting Sitting Pulse 75 Pulse Source Pulse Oximeter Pulse Oximetry (%) 97 Oxygen Delivery Method Room Air Intake Visit Reasons: CKD STG 3B/ Conf Supervisor Dried Yeast Required: Yes Supervisor Dried Yeast Name: [id number] deago Accompanied by: Self / Same As Patient Allergies No Known Allergies [No Known Allergies*] Allergy (Verified 10/30/23 11:46) Medication List - Last Reconciled 10/30/23 by Marlon Lam MD amlodipine 5 mg PO DAILY atorvastatin 20 mg PO DAILY lisinopril 40 mg PO DAILY metoprolol tartrate 75 mg (1.5 x 50 mg) PO BID rivaroxaban 20 mg PO BEDTIME HPI Comments Details: 88-year-old male with a PMH significant for?HTN, HLD, persistent AFib on Xarelto, hx of CVA in 2014 and 2017, hx of subdural hematoma in 2016, and arterial embolism s/p embolectomy He was hospitalized on 08/03/2023 and was found to have serum creatinine 1.07. Two days later at the time of discharge creatinine was 1.07 and this is probably his baseline. He has a history of bilateral renal cyst. This cyst are reportedly unchanged from the imaging done in 2016 and 2008. He has been referred for evaluation of renal cysts as well as renal insufficiency. He is hard of hearing he forgot his hearing aids today. It was rather difficult to communicate with him despite having the aerial photograph interpreter over the phone. 10/30/23 Here for follow up Has hearing aids but NO batteries!!! communicated with interpretor [facility] Medical History Other and unspecified hyperlipidemia Essential hypertension Subdural hematoma Arterial embolism Cerebrovascular accident (CVA) Permanent atrial fibrillation Surgical History History of embolectomy (~04/2016) Family History Father No problems noted. Mother No problems noted. Social History Household Members: None Housing: House Do you presently have visiting nurse or other home services: No Patient Tobacco Use Status: Tobacco use Unknown Advance Directives Date on File: 08/06/23 service: No Physical Exam Vital Signs: Last Vital Signs Pulse 75 10/30/23 11:44 BP 160/82 H 10/30/23 11:44 Pulse Ox 97 10/30/23 11:44 Oxygen Delivery Method Room Air 10/30/23 11:44 BMI result Body Mass Index 26.1 Const General: comfortable; No acute distress Orientation/consciousness: patient oriented x3 Eyes General: appearance normal, both eyes and all related structures Visual Caro: normal visual caro by confrontation Neck Neck: Yes supple and Yes no JVD Resp Effort & Inspection: normal respiratory effort and respiratory effort not decreased Auscultation: rhonchi Cardio Palpation: no palpable S3 and no palpable S4 Heart sounds: no rubs GI Inspection: Yes normal to inspection Palpation (GI): Soft to palpation Percussion: Yes normal to percussion Auscultation: normal bowel sounds General: Yes no CVA tenderness Back/Spine/Pelvis Back: no CVA tenderness Skin General skin exam: no petechiae and no purpura Neuro General: patient oriented x3 and no focal motor deficits Extrem General: No clubbing and No edema Results Reviewed Nephrology Results: Hgb 15.5 g/dl (14.0-18.0) 08/04/23 WBC 9.3 X10*3/uL (4.8-10.8) 08/04/23 Plt Count 173 X10*3/uL (160-400) 08/04/23 Sodium 140 mmol/L (135-145) 09/30/23 Potassium 4.7 mmol/L (3.3-5.1) 09/30/23 Chloride 106 mmol/L (96-108) 09/30/23 Carbon Dioxide 29 mmol/L (22-29) 09/30/23 BUN 13 mg/dL (9-16) 09/30/23 Creatinine 1.28 mg/dL (0.5-1.4) 09/30/23 Calcium 9.5 mg/dL (8.4-10.2) 09/30/23 Urine Protein Negative mg/dL (Neg-Trace) 09/30/23 Urine Creatinine 91.90 mg/dL 09/30/23 Renal US 08/04/23 Assessment & Plan Assessment & Plan (1) Essential hypertension: Code(s): I10 - Essential (primary) hypertension Category: Medical (2) Renal cyst: Code(s): N28.1 - Cyst of kidney, acquired Category: Medical (3) CKD (chronic kidney disease): Code(s): N18.9 - Chronic kidney disease, unspecified Category: Medical Plan 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 This has resolved and creatinine is back to baseline of 1.07. Nader has a history of renal cyst. He has multiple renal cysts in both kidneys some of them are rather complex no solid masses has been reported. These findings are compatible to the imaging done in 2016 and 2008. At this point, since there is cyst remained unstable,we will continue to monitor. If there is any suspicious cyst then it would be worthwhile to proceed with an MRI. urine for cytology not available Goal is to slow the portion disease Continue overt nephrotoxic agents since including NSAIDs Avoid hypotension. Optimize blood pressure and maintain less than 130/80 Encouraged him to stay on low-sodium diet Increase fluid intake. Creatinine is better Orders: Orders Basic Metabolic Panel 6 Months I10 - Essential (primary) hypertension, N18.9 - Chronic kidney disease, unspecified, N28.1 - Cyst of kidney, acquired UA and rflx microscopic 6 Months I10 - Essential (primary) hypertension, N18.9 - Chronic kidney disease, unspecified, N28.1 - Cyst of kidney, acquired Urine Cytology 6 Months I10 - Essential (primary) hypertension, N18.9 - Chronic kidney disease, unspecified, N28.1 - Cyst of kidney, acquired, R31.9 - Hematuria, unspecified Coding Level of Care Code Est Pt Level 4 (76134) Diagnoses Essential hypertension I10 Renal cyst N28.1 CKD (chronic kidney disease) N18.9
[2023-10-30 11:57] VITALS: BP 140/80
== END 2023-10-30 11:58 | disposition home or self-care (01) ==
PROVIDERS: PCP Nurse Practitioner Primary Care; Visit Provider Internal Medicine Hypertension Specialist
DX: I12.9 Hypertensive chronic kidney disease with stage 1 through stage 4 chronic kidney disease, or unspecified chronic kidney disease (principal); N28.1 Cyst of kidney, acquired; N18.9 Chronic kidney disease, unspecified
CPT/HCPCS: 99214

== ENCOUNTER → 2023-10-30 11:43 | Outpatient (BNVA) | payer OTHER, SELFPAY | PROVIDERS: PCP Nurse Practitioner Primary Care; Visit Provider Internal Medicine Hypertension Specialist | DX: I12.9 Hypertensive chronic kidney disease with stage 1 through stage 4 chronic kidney disease, or unspecified chronic kidney disease (principal); N18.9 Chronic kidney disease, unspecified; N28.1 Cyst of kidney, acquired | CPT/HCPCS: 99212 ==

== ENCOUNTER 2024-04-28 10:19 | Outpatient (REF) | payer OTHER, SELFPAY ==
[2024-04-28 11:30] LABS: Urine Cytology See Pathology rpt
[2024-04-28 11:43] LABS: Anion Gap 10 (12-20); Blood Urea Nitrogen 16 mg/dL (9-16); Calcium 8.7 mg/dL (8.4-10.2); Carbon Dioxide 29 mmol/L (22-29); Chloride 106 mmol/L (96-108); Estimated Glomerular Filt Rate > 60; Glucose Random 135 mg/dL (60-115); Potassium 3.8 mmol/L (3.3-5.1); Sodium 141 mmol/L (135-145)
--- OUTSIDE RECORDS SUMMARY | 2024-04-28 12:34 | XMS_ITS | Encounter Summary ---
Author Organization [employer] Address [address] [place] [address] Care Team Providers Care Oncology Social Worker Name Role Phone Chloé Swenson Primary Care Provider [phone] Encounter Details Date Type Department Care Team (Late st Contact Info) Description 07/24/2022 Telephone [facility] [address] [place], [place] [phone] Eula Mcdowell LPN Social History Tobacco Use Types Packs/Day Years Used Date Smoking Tobacco: Former Cigarettes Smokeless Tobacco: Never Alcohol Use Standard Drinks/Week Comments Yes 0 (1 standard drink = 0.6 oz pur e alcohol) Depression Answer Date Recorded Patient Health Questionnaire-2 Score 0 07/15/2022 Sex and Gender Information Value Date Recorded Sex Assigned at Male 12/31/2021 10:16 AM EDT Legal Sex Male 10:16 AM EDT Gender Identity Male 12/31/2021 10:16 AM EDT Sexual Orientation Choose not to disclose 2021 10:16 AM EDT COVID-19 Exposure Response Date Recorded In the last 10 days, have yo u been in contact with someone who was confirmed or suspected to have Coronavirus/COVID-19? No / Unsure 07/26/2022 9:52 AM EDT documented as of this encounter Plan of Treatment Not on file documented as of this encounter Visit Diagnoses Not on filedocumented in this encounter Care Teams Oncology Social Worker Relationship Specialty Start Date End Date Chloé Swenson ANP [address] [place] [address] PCP - General Family Medicine 02/01/21 documented as of this encounter
--- OUTSIDE RECORDS SUMMARY | 2024-04-28 12:34 | XMS_ITS | Clinical Summary ---
Author Organization [employer] Address [address] [place] [address] Care Team Providers Care Railway Patrol Officer Name Role Phone Chloé Swenson Primary Care Provider [phone] Allergies No known active allergies Medications rivaroxaban (Xarelto) 20 MG tabletIndications: Atrial fibrillation, unspecified type (CMS/HCC) TAKE 1 TABLET BY MOUTH EVERY DAY WITH EVENING MEAL 90 tablet 1 4 Active budesonide-formote rol (Symbicort) 80-4.5 MCG/ACT inhalerIndications :Chronic obstructive pulmonary disease, unspecified COPD type (CMS/HCC),Moderate persistent asthma without complication inhale 2 puff by inhalation route 2 times every day in the morning and evening 1 each 5 4 Active lisinopril 40 MG tabletIndications: Essential hypertension TAKE 1 TABLET BY MOUTH EVERY DAY 90 tablet 3 4 Active amLODIPine (Norvasc) 5 MG tabletIndications: Essential hypertension TAKE 1 TABLET BY MOUTH EVERY DAY IN THE MORNING 90 tablet 3 4 Active atorvastatin (Lipitor) 20 MG tabletIndications: Hyperlipidemia, unspecified hyperlipidemia type TAKE 1 TABLET BY MOUTH EVERY DAY IN THE MORNING 90 tablet 3 4 Active metoprolol tartrate (Lopressor) 50 MG tabletIndications: Essential hypertension TAKE 1 & 1/2 TABLETS (75 MG) BY MOUTH 2 TIMES DAILY. 270 tablet 3 4 Active albuterol 108 (90 Base) MCG/ACT inhalerIndications :Chronic obstructive pulmonary disease, unspecified COPD type (CMS/HCC) Inhale 2 puffs every 4 (four) hours if needed for shortness of breath. 18 g 1 12/27/202 4 Active Active Problems Problem Noted Date Diagnosed Date Encounter for preventive health examination 02/01 Assessment & Plan (02/27/2024 11:35 AM EST): Discussed with patient re increase fresh fruit and vegetable intake. Counseled re moderate exercise as tolerated, up to 20min/d Patient feels safe at home. Eye exam: UTD, FU in 2024 or earlier if needed. CRC screen: never done, not needed due to age. Lipids/FBS: to be ordered, overdue. Vaccinations: agreed to have Covid and Influenza immunizations today, PCP to FU on Zoster + RSV, all other immunizations UTD. Dental visit: UTD, pt has dentures. Chronic obstructive pulmonar y disease, unspecified COPD type 02/27/2024 Assessment & Plan (02/27/2024 11:33 AM EST): Seems to be controlled on Albuterol only. FU with PCP for PFTs, consider Symbicort prescription. Covid and Influenza immunizations are UTD. Continue Albuterol PRN. He is an ex-smoker. Overweight 02/27/2024 Assessment & Plan (02/27/2024 11:05 AM EST): Pt has actually been losing weight, he has lost about 10 pounds in the past 6 months. Weight loss 02/27/2024 Assessment & Plan (02/27/2024 1:12 PM EST): Unclear if pt is picking up weight these past few months. FU with PCP in 2-3 months, labs are within normal limits. 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 FU with PCP. Impaired glucose tolerance 03/01/2013 Bilateral cataracts 04/21/2012 Hypertensive retinopathy 04/21/2012 Sensorineural hearing loss of combined sites Assessment & Plan (02/27/2024 1:13 PM EST): Needs adjustment of hearing aids, refer to Otology. Gout 08/29/2011 Essential hypertension 06/05/2011 Assessment & Plan (02/27/2024 1:13 PM EST): Controlled. Compliant w/meds Continue lisinopril + amlodipine + metoprolol. Counseled re low salt diet/increase moderate physical activity. Check home BP BIW and prn CP/EASTON/PABLO Non smoking patient. 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 Resolved Problems Problem Noted Date Diagnosed Date Resolved Date Subdural hematoma 01/07/2017 02/27/2024 Encounters Date Type Department Care Team Description 04/27/2024 Telephone [facility] [address] [place] [address] Chloé Swenson ANP Change PCP 03/16/2024 Telephone [facility] [address] [place] [address] Quynh Smith MA May recall 02/27/2024 10:45 AM EST Office Visit [facility] [address] [place] [address] Radha Sousa MD Encounter for preventive health examination (Primary Dx); Chronic obstructive pulmonary disease, unspecified COPD type (CMS/HCC); Paroxysmal atrial fibrillation (CMS/HCC); Weight loss; Overweight; Sensorineural hearing loss of combined sites; Essential hypertension; Exercise counseling; Encounter for immunization; Dietary counseling 02/27/2024 Travel 02/26/2024 Telephone [facility] [address] [place] [address] Sonia Bruce MA Chart prep 02/18/2024 Telephone [facility] [address] [place] [address] Chloé Swenson ANP Telephone Call 02/18/2024 Patient Outreach [facility] [address] [place] [address] Chloé Swenson ANP Pre-visit Planning ((Unable to reach for PVP screening, LVM)) 02/02/2024 Refill [facility] [address] [place], [place] [phone] Chloé Swenson ANP Essential hypertension; Hyperlipidemia, unspecified hyperlipidemia type from Last 3 Months Immunizations Name Administration Dates Next Due Influenza High-dose Quadrivalent Preservative Fr ee 12/20/2021 Influenza injectable quadriv alent IIV4 with preservative 11/12/2018,12/05/2017 Influenza injectable quadrivalent preservative f ree 01/12/2021 Influenza, High Dose Seasonal, Preservative Free 02/27/2024 Moderna Covid-19 Vaccine 12+ 05/09/2020,04/11/19 21 Pfizer Covid-19 Vaccine 12+ 02/27/2024 Pfizer Covid-19 Vaccine 12+ Bivalent 07/15/2022 Pneumococcal Conjugate PCV 13 01/07/2017 Pneumococcal Conjugate PCV 20 07/15/2022 TD (adult), 2 Lf tetanus tox oid, preservative free, adsorbed 05/27/2005 Tdap 04/29/2017 Zoster, live 04/29/2017 Social History Tobacco Use Types Packs/Day Years Used Date Smoking Tobacco: Former Cigarettes 0.3 0.5 Smokeless Tobacco: Never Tobacco Cessation:Counseling Given: Not Answered Alcohol Use Standard Drinks/Week Comments Yes 0 (1 standard drink = 0.6 oz pur e alcohol) Housing Stability Answer Date Recorded What is your housing situation today? I have romelciara leone 01/11/[address] you li ve. Do you have problems with any of the following? None of the above 01/11/2023 Food Insecurity Answer Date Recorded Within the past 12 months, y ou worried that your food would run out before you got money to buy more: Never True 01/11/2023 Within the past 12 months,th e food you bought just didn't last and you didn't have enough money to get more: Never True 01/2023 Transportation Answer Date Recorded In the past 12 months, has l ack of transportation kept you from medical appts, meetings, work or from getting things needed for daily living? No 01/11/2023 Utilities Answer Date Recorded In the past 12 months, has t he electric, gas, oil or water company threatened to shut off services in your home? No 01/11/2023 Depression Answer Date Recorded Patient Health Questionnaire-2 Score 0 07/15/2022 Sex and Gender Information Value Date Recorded Sex Assigned at Male 12/31/2021 10:16 AM EDT Legal Sex Male 10:16 AM EDT Gender Identity Male 12/31/2021 10:16 AM EDT Sexual Orientation Choose not to disclose 2021 10:16 AM EDT Last Filed Vital Signs Vital Sign Reading Time Taken Comments Blood Pressure 144/78 02/27/2024 11:00 AM EST Pulse 70 02/27/2024 11:00 AM EST Temperature 36.2 ??C (97.2 ??F) 02/27/2024 11:[address] Respiratory Rate 20 02/27/2024 11:00 AM EST Oxygen Saturation 97% 09/11/2023 10:44 AM EDT Inhaled Oxygen Concentration - - Weight 69.4 kg (153 lb) 02/27/2024 11:00 AM EST Height 160 cm (5' 3 ) 02/27/2024 11:00 AM EST Body Mass Index 27.1 02/27/2024 11:00 AM EST Plan of Treatment Health Maintenance Due Date Last Done Comments Dental Prophylaxis 1935 Dental X-Ray: Bitewings 1937 Alcohol/Substance Use Screening 1949 RSV Patients and Patients Aged 60 years or older (1 - 1-dose 75+ series) 2012 Zoster Vaccines (2 of 3) 06/24/2017 04/29/2017 Dental Oral Exam 01/27/2023 07/26/2022, 01/12/2021 Depression Screening 07/16/2023 07/15/2022, 07/16/19 23 SDOH Screening 07/16/2023 07/15/2022 Dental X-Ray: Full Mouth 01/14/2024 01/12/2021 Tobacco Screening 02/26/2025 02/27/2024 Lipid Panel 04/25/2025 04/25/2020 DTaP/Tdap/Td Vaccines (2 - Td or Tdap) 04/29/2027 04/29/2017, 05/27/2005 Pneumococcal Vaccine: 50+ Years Completed 07/15/2022, 01/07/2017 COVID-19 Vaccine Completed 02/27/2024, , 12/20/2021, Additional history exists Influenza Vaccine Completed 02/27/2024, , 01/12/2021, Additional history exists HIB Vaccines Aged Out No longer eligi ble based on patient's age to complete this topic HPV Vaccines Aged Out No longer eligi ble based on patient's age to complete this topic Hepatitis A Vaccines Aged Out No long er eligible based on patient's age to complete this topic Hepatitis B Vaccines Aged Out No long er eligible based on patient's age to complete this topic IPV Vaccines Aged Out No longer eligi ble based on patient's age to complete this topic Meningococcal Vaccine Aged Out No jonnie teresa eligible based on patient's age to complete this topic RSV under 20 months Aged Out No longe r eligible based on patient's age to complete this topic Rotavirus Vaccines Aged Out No longer eligible based on patient's age to complete this topic Procedures Procedure Name Priority Date/Time Associated Diagnosis Comments PERIODIC ORAL EVALUATION - ESTABLISHED PATIENT Routine 07/26/2022 10:00 AM EDT PANORAMIC RADIOGRAPHIC IMAGE Routine 01/12/2021 12:00 AM EST LIPID PANEL, STANDARD Routine 04/25/2020 3:04 PM EST from Last 3 Months or Most Recently Relevant to Health Maintenance Results * (ABNORMAL) LIPID PANEL, STANDARD (04/25/2020 3:04 PM EST) Chol/HDLC Ratio 3.1 <5.0 (calc) [facility] Cholesterol, Total 122 <200 mg/dL [facility] HDL Cholesterol 39(L) > OR = 40 mg/dL [facility] LDL Cholesterol 58 mg/dL (calc) [facility] Comment: Reference range: <100 ?? Desirable range <100 mg/dL for primary prevention; ?? <70 mg/dL for patients with CHD or diabetic patients ?? with > or = 2 CHD risk factors. ?? LDL-C is now calculated using the Deandre ?? calculation, which is a validated novel method providing ?? better accuracy than the Friedewald equation in the ?? estimation of LDL-C. ?? Getachew SANTIAGO et al. BULL. 2013;310(19): 3382-4282 ?? (http://[employer]/faq/NHE046) Non-HDL Cholesterol 83 <130 mg/dL (calc) [facility] Comment: For patients with diabetes plus 1 major ASCVD risk ?? factor, treating to a non-HDL-C goal of <100 mg/dL ?? (LDL-C of <70 mg/dL) is considered a therapeutic ?? option. Triglycerides 168(H) <150 mg/dL [facility] 04/25/2020 3:04 PM EST us Joan Mcgee MD LAB BLOOD ORDERABLES Final Re sult [facility] [address] from Last 3 Months or Most Recently Relevant to Health Maintenance Insurance [facility]ENT[facility] - [facility] Care Teams Railway Patrol Officer Relationship Specialty Start Date End Date Chloé Swenson ANP [address] [place] [address] [place] [address] PCP - General Family Medicine 02/01/21
--- OUTSIDE RECORDS SUMMARY | 2024-04-28 12:34 | XMS_ITS | Encounter Summary ---
Author Organization [employer] Address [address] [place] [address] Care Team Providers Care Roller Die Cutting Machine Operator Name Role Phone Chloé Swenson Primary Care Provider [phone] Reason for Visit * Reason Onset Date Comments Change PCP 04/27/2024 Encounter Details Date Type Department Care Team ([facility] st Contact Info) Description 04/27/2024 Telephone [facility] MED[facility]INE [address] [place], [place] [phone] Chloé Swenson ANP [address] [place], [place] [phone] Change PCP Social History Tobacco Use Types Packs/Day Years Used Date Smoking Tobacco: Former Cigarettes 0.3 0.5 Smokeless Tobacco: Never Alcohol Use Standard Drinks/Week Comments Yes 0 (1 standard drink = 0.6 oz pur e alcohol) Housing Stability Answer Date Recorded What is your housing situation today? I have romel leone 01/11/[address] you [...] not to disclose 2021 10:16 AM EDT documented as of this encounter Miscellaneous Notes * Telephone Encounter - Monique Wyatt - 04/27/2024 12:15 PM EST PT walked in stating that he received a letter stating that he needed to make an appt with Chloé Swenson. PT states that he is very unhappy with the treatment he has received with PCP. PT would like PCP change As soon as possible. PT states he has not felt heard when a new problem arises with his health, he also feels like PCP is not thorough enough when FU are being conducted. PT states he was seen before by Archie on different occasion. PT feels comfortablewith them since they speak comoran. documented in this encounter Plan of Treatment Not on file documented as of this encounter Visit Diagnoses Not on filedocumented in this encounter Care Teams Roller Die Cutting Machine Operator Relationship Specialty Start Date End Date Chloé Swenson ANP [address] [place] [id number] PCP - General Family Medicine 02/01/21 documented as of this encounter
--- OUTSIDE RECORDS SUMMARY | 2024-04-28 12:34 | XMS_ITS | Encounter Summary ---
Author Organization [employer] Address [address] [place] [address] Care Team Providers Care Mortgage Loan Computation Clerk Name Role Phone Chloé Swenson Primary Care Provider [phone] Reason for Visit * Reason Onset Date Comments Hospital Follow-up 08/08/2023 Encounter Details Date Type Department Care Team (Late st Contact Info) Description 08/08/2023 Telephone [facility]INE [address] [place], [place] [phone] Chloé Swenson ANP [address] [place], [place] [phone] Hospital Follow-up Social History Tobacco Use Types Packs/Day Years [...] t he electric, gas, oil or water [employer] threatened to shut off services in your [...] encounter Miscellaneous Notes * Telephone Encounter - Shaka Nice - 08/08/2023 10:14 AM EDT Tc from Isabel with [facility] requesting a HDF appt. Hospital: [facility] Date of admission: 08/02 Discharge date: 08/04 Diagnosed: Respiratory Distress Son (also known as pt's health care proxy) requested call back, Isabel provided contact number. Please contact Son at [phone]. documented in this encounter Plan of Treatment Not on file documented as of this encounter Visit Diagnoses Not on filedocumented in this encounter Care Teams Mortgage Loan Computation Clerk Relationship Specialty Start Date End Date Chloé Swenson ANP [address] [place] [id number] PCP - General Family Medicine 02/01/21 documented as of this encounter
--- OUTSIDE RECORDS SUMMARY | 2024-04-28 12:34 | XMS_ITS | Encounter Summary ---
Author Organization [employer] Address [address] [place] [address] Care Team Providers Care Water Meter Mechanic Name Role Phone Chloé Swenson Primary Care Provider [phone] Reason for Visit * Reason Comments Med Refill Encounter Details Date Type Department Care Team ([facility] st Contact Info) Description 01/20/2023 Refill [facility] [address] [place], [place] [phone] Chloé Swenson ANP [address] [place], [place] [phone] Essential hypertension; Hyperlipidemia, unspecified hyperlipidemia type; Atrial fibrillation, unspecified type (CMS/HCC) Social History Tobacco Use Types Packs/Day Years [...] documented as of this encounter Visit Diagnoses Diagnosis Essential hypertension Unspecified essential hypertension Hyperlipidemia, unspecified hyperlipidemia type Atrial fibrillation, unspecified type (CMS/HCC) documented in this encounter Care Teams Water Meter Mechanic Relationship Specialty Start Date End Date Chloé Swenson ANP [address] [place] [id number] PCP - General Family Medicine 02/01/21 documented as of this encounter
[2024-04-28 13:02] LABS: Appearance Urine Clear; Color Urine Yellow; Glucose Urine UA Negative (Negative); Leukocyte Esterase Urine Negative (Negative); Nitrite Urine Negative (Negative); Urine Blood Negative (Negative); Urine Ketones Negative (Negative); Urine Protein Negative (Neg-Trace)
== END 2024-04-28 10:20 | disposition home or self-care (01) ==
LOC: HO.10HDL 10:19
PROVIDERS: Visit Provider Internal Medicine Hypertension Specialist
DX: R31.9 Hematuria, unspecified (principal); I10 Essential (primary) hypertension; N28.1 Cyst of kidney, acquired; N18.9 Chronic kidney disease, unspecified; R82.998 Other abnormal findings in urine
CPT/HCPCS: 36415; 80048; 81003; 88112

== ENCOUNTER 2024-04-29 10:14 | Outpatient (AMB) | payer OTHER, SELFPAY ==
[2024-04-29 10:40] VITALS: BP 128/54; PULSE 83; O2SAT 95; BMI 26.5
--- NOTE | 2024-04-29 10:40 | HO.NEPHOV ---
Vital Signs 04/29/24 10:40 Height 5 ft 5 in Weight 159 lb BMI 26.5 BP 128/54 L Blood Pressure Location Lt brachial Position Sitting Pulse 83 Pulse Source Pulse Oximeter Pulse Oximetry (%) 95 Oxygen Delivery Method Room Air Intake Visit Reasons: CKD/ Conf Marketing Programs Manager Required: Yes Marketing Programs Manager Name: Spring [phone] Accompanied by: Self / Same As Patient Allergies No Known Allergies [No Known Allergies*] Allergy (Verified 04/29/24 10:42) Medication List - Last Reconciled 04/29/24 by Marlon Lam MD amlodipine 5 mg PO DAILY atorvastatin 20 mg PO DAILY lisinopril 40 mg PO DAILY metoprolol tartrate 75 mg (1.5 x 50 mg) PO BID rivaroxaban 20 mg PO BEDTIME HPI Comments Details: 88-year-old male with a PMH significant for?HTN, HLD, persistent AFib on Xarelto, hx of CVA in 2014 and 2017, hx of subdural hematoma in 2016, and arterial embolism s/p embolectomy He was hospitalized on 08/03/2023 and was found to have serum creatinine 1.07. Two days later at the time of discharge creatinine was 1.07 and this is probably his baseline. He has a history of bilateral renal cyst. This cyst are reportedly unchanged from the imaging done in 2016 and 2008. He has been referred for evaluation of renal cysts as well as renal insufficiency. He is hard of hearing he forgot his hearing aids today. It was rather difficult to communicate with him despite having the translator/interpreter over the phone. 10/30/23 Here for follow up Has hearing aids but NO batteries!!! communicated with interpretor [facility] Medical History Other and unspecified hyperlipidemia Essential hypertension Subdural hematoma Arterial embolism Cerebrovascular accident (CVA) Permanent atrial fibrillation Surgical History History of embolectomy (~04/2016) Family History Father No problems noted. Mother No problems noted. Social History Household Members: None Housing: House Do you presently have visiting nurse or other home services: No Patient Tobacco Use Status: Tobacco use Unknown Advance Directives Date on File: 08/06/23 service: No Physical Exam Vital Signs: Last Vital Signs Pulse 83 04/29/24 10:40 BP 128/54 L 04/29/24 10:40 Pulse Ox 95 04/29/24 10:40 Oxygen Delivery Method Room Air 04/29/24 10:40 BMI result Body Mass Index 26.5 Results Reviewed Nephrology Results: Hgb 15.5 g/dl (14.0-18.0) 08/04/23 WBC 9.3 X10*3/uL (4.8-10.8) 08/04/23 Plt Count 173 X10*3/uL (160-400) 08/04/23 Sodium 141 mmol/L (135-145) 04/28/24 Potassium 3.8 mmol/L (3.3-5.1) 04/28/24 Chloride 106 mmol/L (96-108) 04/28/24 Carbon Dioxide 29 mmol/L (22-29) 04/28/24 BUN 16 mg/dL (9-16) 04/28/24 Creatinine 1.13 mg/dL (0.5-1.4) 04/28/24 Calcium 8.7 mg/dL (8.4-10.2) 04/28/24 Urine Protein Negative mg/dL (Neg-Trace) 04/28/24 Urine Creatinine 91.90 mg/dL 09/30/23 Renal US 08/04/23 Assessment & Plan Assessment & Plan (1) Essential hypertension: Code(s): I10 - Essential (primary) hypertension Category: Medical (2) CKD (chronic kidney disease): Code(s): N18.9 - Chronic kidney disease, unspecified Category: Medical (3) Renal cyst: Code(s): N28.1 - Cyst of kidney, acquired Category: Medical Plan 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 This has resolved and creatinine is back to baseline of 1.07. Nader has a history of renal cyst. He has multiple renal cysts in both kidneys some of them are rather complex no solid masses has been reported. These findings are compatible to the imaging done in 2017 and 2009. At this point, since there is cyst remained unstable,we will continue to monitor. If there is any suspicious cyst then it would be worthwhile to proceed with an MRI. urine for cytology not available Goal is to slow the portion disease Continue overt nephrotoxic agents since including NSAIDs Avoid hypotension. Optimize blood pressure and maintain less than 130/80 Encouraged him to stay on low-sodium diet Increase fluid intake. Creatinine is better Orders: Orders Basic Metabolic Panel 6 Months I10 - Essential (primary) hypertension, N18.9 - Chronic kidney disease, unspecified Coding Level of Care Code Est Pt Level 4 (25391) Diagnoses Essential hypertension I10 CKD (chronic kidney disease) N18.9 Renal cyst N28.1
--- OUTSIDE RECORDS SUMMARY | 2024-04-29 11:52 | XMS_ITS | Encounter Summary ---
Author Organization [facility] Address [address] 7[address] [place] [address] Care Team Providers Care Reimbursement Auditor Name Role Phone Chloé Swenson Primary Care Provider [phone] Reason for Visit * Reason Comments Med Refill Encounter Details Date Type Department Care Team ([facility] st Contact Info) Description 01/20/2023 Refill [facility] MEDICINE [address] [place], [place] [phone] Chloé Swneson ANP [address] [place], [place] [phone] Essential hypertension; Hyperlipidemia, unspecified hyperlipidemia type; Atrial [...] (CMS/HCC) documented in this encounter Care Teams Reimbursement Auditor Relationship Specialty Start Date End Date Chloé Swenson ANP [address] [place] [id number] PCP - General Family Medicine 02/01/21 documented as of this encounter
--- OUTSIDE RECORDS SUMMARY | 2024-04-29 11:52 | XMS_ITS | Encounter Summary ---
Author Organization [employer] Address [address] [facility] 7[address] [place] [address] Care Team Providers Care Director Of Rehabilitative Services Name Role Phone Chloé Swenson Primary Care Provider [phone] Encounter Details Date Type Department Care Team (Late st Contact Info) Description 07/24/2022 Telephone [facility] MEDICINE [address] [place], [place] [phone] Eula Mcdowell LPN Social History Tobacco Use [...] on filedocumented in this encounter Care Teams Director Of Rehabilitative Services Relationship Specialty Start Date End Date Chloé Swenson ANP [address] [place] [address] PCP - General Family Medicine 02/01/21 documented as of this encounter
--- OUTSIDE RECORDS SUMMARY | 2024-04-29 11:52 | XMS_ITS | Encounter Summary ---
Author Organization [employer] Address [address] [place] [address] Care Team Providers Care Box Estimator Name Role Phone Chloé Swenson Primary Care Provider [phone] Reason for Visit * Reason Onset Date Comments Change PCP 04/27/2024 Encounter Details Date Type Department Care Team ([facility] st Contact Info) Description 04/27/[address] [facility] MEDICINE [address] [place], [place] [phone] Chloé Swenson ANP [address] [place], [place] [phone] Change PCP Social History Tobacco Use Types [...] PT feels comfortablewith them since they speak namibian. documented in this encounter Plan of Treatment Not on file documented as of this encounter Visit Diagnoses Not on filedocumented in this encounter Care Teams Box Estimator Relationship Specialty Start Date End Date Chloé Swenson ANP [address] [place] [id number] PCP - General Family Medicine 02/01/21 documented as of this encounter
--- OUTSIDE RECORDS SUMMARY | 2024-04-29 11:52 | XMS_ITS | Encounter Summary ---
Author Organization [employer] Address [address] [place] [address] Care Team Providers Care Metal Drill Operator Name Role Phone Chloé Swenson Primary Care Provider [phone] Reason for Visit * Reason Onset Date Comments Hospital Follow-up 08/08/2023 Encounter Details Date Type Department Care Team (Late st Contact Info) Description 08/08/2023 Telephone [facility] MEDICINE [address] [place], [place] [phone] Chloé Swenson ANP [address] [place], [place] [phone] Hospital Follow-up Social History Tobacco Use Types [...] t he electric, gas, oil or water [employer] threatened to shut off services in your [...] 10:14 AM EDT Tc from [place] with [facility] requesting a HDF appt. Hospital: [facility] Date of admission: 08/02 Discharge date: 08/04 Diagnosed: Respiratory Distress Son (also known as pt's health care proxy) requested call back, Isabel provided contact number. Please contact Son at [phone]. documented in this encounter Plan of Treatment Not on file documented as of this encounter Visit Diagnoses Not on filedocumented in this encounter Care Teams Metal Drill Operator Relationship Specialty Start Date End Date Chloé Swenson ANP [address] [place] [id number] PCP - General Family Medicine 02/01/21 documented as of this encounter
--- OUTSIDE RECORDS SUMMARY | 2024-04-29 11:52 | XMS_ITS | Clinical Summary ---
Author Organization [employer] Address [address] [facility] 7t [place] [address] Care Team Providers Care Excelsior Machine Operator Name Role Phone Chloé Swenson Primary Care Provider [phone] Allergies No known active allergies Medications rivaroxaban [...] Type Department Care Team Description 04/27/[address] [facility] MEDICINE [address] [place] [address] Chloé Swenson ANP Change PCP 03/16/2024 Telephone [facility] [address] [place] [address] Quynh Smith MA May recall 02/27/2024 10:45 AM EST Office Visit [facility] [address] [place] [address] Radha Sousa MD Encounter for preventive health examination (Primary Dx); Chronic obstructive pulmonary disease, unspecified COPD type (CMS/HCC); Paroxysmal atrial fibrillation (CMS/HCC); Weight loss; Overweight; Sensorineural hearing loss of combined sites; Essential hypertension; Exercise counseling; Encounter for immunization; Dietary counseling 02/27/2024 Travel 02/26/2024 Telephone [facility] [address] [place] [address] Soina Bruce MA Chart prep 02/18/[address] [facility] MEDICINE [address] [place] [address] Chloé Swenson ANP Telephone Call 02/18/2024 Patient Outreach [facility] [address] [place] [address] Chloé Swenson ANP Pre-visit Planning ((Unable to reach for PVP screening, LVM)) 02/02/[address] [facility] MEDICINE [address] [place], [place] [phone] Chloé Swenson ANP Essential hypertension; Hyperlipidemia, unspecified [...] ?? Getachew SANTIAGO et al. BULL. 2013;310(19): 2992-4375 ?? ([email or web address]) Non-HDL Cholesterol 83 <130 mg/dL (calc) [facility] [...] [facility] [address] from Last 3 Months or Most Recently Relevant to Health Maintenance Insurance [facility] Care Teams Excelsior Machine Operator Relationship Specialty Start Date End Date Chloé Swenson ANP [address] [place] [address] [place] [id number] PCP - General Family Medicine 02/01/21
== END 2024-04-29 11:02 | disposition home or self-care (01) ==
PROVIDERS: PCP Nurse Practitioner Primary Care; Visit Provider Internal Medicine Hypertension Specialist
DX: I12.9 Hypertensive chronic kidney disease with stage 1 through stage 4 chronic kidney disease, or unspecified chronic kidney disease (principal); N18.9 Chronic kidney disease, unspecified; N28.1 Cyst of kidney, acquired
CPT/HCPCS: 99214

== ENCOUNTER → 2024-04-29 10:14 | Outpatient (BNVA) | payer OTHER, SELFPAY | PROVIDERS: PCP Nurse Practitioner Primary Care; Visit Provider Internal Medicine Hypertension Specialist | DX: I12.9 Hypertensive chronic kidney disease with stage 1 through stage 4 chronic kidney disease, or unspecified chronic kidney disease (principal); N18.9 Chronic kidney disease, unspecified; N28.1 Cyst of kidney, acquired | CPT/HCPCS: 99212 ==

== ENCOUNTER 2024-05-18 09:48 | Emergency (ER) | payer OTHER, SELFPAY ==
--- NOTE | ~2024-05-18 | CT_ITS ---
EXAMINATION: CT CERVICAL SPINE WITHOUT CONTRAST CLINICAL INFORMATION: Status post fall. COMPARISON: August 19, 2017. TECHNIQUE: Contiguous axial images through the cervical spine using 3 mm collimation with bone and soft tissue algorithm. Sagittal and coronal reformatted images acquired. This CT examination was performed using dose optimization techniques as appropriate, variously including the following: *Automated exposure control *Adjustment of mA and/or kV according to patient size (this includes techniques or standardized protocols for targeted exams where dose is matched to indication/reason for exam; i.e. extremities or head) *Use of iterative reconstruction technique. DLP: 362.81 mGy centimeter. FINDINGS: Limited by patient's motion artifact. Craniocervical junction is intact. Degenerative changes with partially calcified pannus formation at the periodontal C1 region. Marginal osteophyte formation and endplate irregularities sclerosis and decreased intervertebral disc height at C3-4 C4-5 and to a lesser extent C5-6 and C6-7 levels. Reverse curvature apex at C3. Facet joint hypertrophy at C2-3, C4-5 C5-6 and C6-7 levels. Incomplete ankylosis at the left facet joints C2-3 level. Grade 1 retrolisthesis C4-5 on a degenerative basis. Grade 1 anterolisthesis C6-7 on a degenerative basis. C1 is intact. C2 is intact. C3 is intact. Left facet joint hypertrophy. C4 is intact. C5 is intact. C6 is intact. C7 is intact. No gross prevertebral compartment hematoma. There is a retropharyngeal trajectory of a calcified left ICA. Bilateral apical lung scarring. Tympanic cavities and mastoid cells are aerated. Calcified plaques in the V3/V4 segment, left vertebral artery and basilar artery. Bilateral apical lung scarring more pronounced on the left side with the questionable 9 mm spiculated the attenuation abutting the posterior pleura. CT/CT cervical spine wo IV con IMPRESSION: Multilevel cervical spondylosis C3 C6 without acute fracture or trauma-related listhesis. Calcified pannus formation periodontal C1 region. Atherosclerosis disease. 9 mm spiculated attenuation abutting the posterior pleural left upper lung lobe. Retropharyngeal trajectory of a calcified left ICA anterior to C2. Fleischner guidelines were followed. Electronically signed by: Alban Patel MD 05/18/2024 11:40 AM EDT
--- NOTE | ~2024-05-18 | CT_ITS ---
EXAMINATION: CT HEAD WITHOUT CONTRAST CLINICAL INFORMATION: fall on Friday with head strike. Hematoma noted COMPARISON: September 26, 2019 TECHNIQUE: Contiguous axial imaging was performed from the skull base to vertex without intravenous administration of contrast. This CT examination was performed using dose optimization techniques as appropriate, variously including the following: *Automated exposure control *Adjustment of mA and/or kV according to patient size (this includes techniques or standardized protocols for targeted exams where dose is matched to indication/reason for exam; i.e. extremities or head) *Use of iterative reconstruction technique DLP: 964 mm mGy-cm FINDINGS: The bony calvarium is intact. The skull base is intact. No acute intracranial hemorrhage, mass effect, midline shift, hydrocephalus or herniation. There is a large macrocystic encephalomalacia involving the left frontotemporal opercular/external capsule left parietal/insular subinsular resulting in well aerated degeneration into the left midbrain. There is focal encephalomalacia, subcortical white matter, right frontal opercular. Prominence of the extra-axial CSF spaces cerebral sulci and ventricles. I lateral multifocal patchy deep periventricular white matter hypodensities. Old lacunar infarcts in the basal ganglia. Calcified plaques in the V3 segment, left vertebral and proximal basilar arteries. Calcified plaques in the cavernous supracavernous segments both ICAs. Retention cysts versus polyp, left maxillary sinus. No air-fluid levels. Retention cysts versus polyps in the ostiomeatal units. Tympanic cavities and mastoid cells are aerated. Edentulous, maxilla. No hematoma in the intraconal or the extraconal compartments of the orbits. Calcifications versus radiopaque the ocular prosthesis, bilaterally. Status post intraocular lens surgery bilaterally. CT/CT head/brain wo IV con IMPRESSION: No acute fracture, bony calvarium. No acute intracranial hemorrhage. Prior vascular insult left MCA territory and to a lesser extent right MCA territory. Small vessel occlusive disease. Atherosclerosis disease, intracranial. Electronically signed by: Alban Patel MD 05/18/2024 11:28 AM EDT
[2024-05-18 09:50] VITALS: BP 146/75; PULSE 76; RESP 18; TEMP 36.2; O2SAT 97; BMI 25.6
--- NOTE | 2024-05-18 10:05 | ED.FALL ---
HPI - Fall General Chief Complaint: Fall Stated Complaint: Fall 2 days ago, head injury Time Seen by Provider: 05/18/24 10:05 Source: patient, RN notes reviewed and old records reviewed Mode of arrival: ambulatory History of Present Illness ED Provider: Lydia Gibson PA-C HPI Narrative: 89-year-old male with a past medical history of AFib on Xarelto, HTN, CVA, subdural hematoma, presenting to the ED complaining of left-sided headache radiating to neck s/p mechanical slip and fall at home 3 days ago when reaching down to pick something off the ground. States fell backwards and hit head on chair, denies LOC. Denies symptoms prior to fall including lightheadedness /dizziness, CP/SOB. Denies back pain, abdominal pain, nausea /vomiting, vision change or loss. Related Data Home Medications ?Medication ?Instructions ?Recorded ?Confirmed amlodipine 5 mg tablet 5 mg PO DAILY 07/18/20 04/29/24 atorvastatin 20 mg tablet 20 mg PO DAILY 07/18/20 04/29/24 lisinopril 40 mg tablet 40 mg PO DAILY 07/18/20 04/29/24 rivaroxaban 20 mg tablet 20 mg PO BEDTIME 07/18/20 04/29/24 Previous Rx's ?Medication ?Instructions ?Recorded metoprolol tartrate 50 mg tablet 75 mg (1.5 x 50 mg) PO BID #270 12/26/21 tabs Allergies Allergy/AdvReac Type Severity Reaction Status Date / Time No Known Allergies Allergy Verified 05/18/24 09:55 [No Known Allergies*] Review of Systems Review of Systems: Yes all other systems are reviewed and are negative Constitutional: Constitutional: Reports as per HPI Neurologic: Denies Abnormal speech present [facility] Past Medical History Attestation statement: The following information was validated with the patient. Source: old records reviewed Medical History A-fib Other and unspecified hyperlipidemia Essential hypertension Subdural hematoma Arterial embolism Cerebrovascular accident (CVA) Permanent atrial fibrillation Surgical History History of embolectomy (~04/2016) Family History Family History Father No problems noted. Mother No problems noted. Social History Social History Household Members: None Housing: House Do you presently have visiting nurse or other home services: No Alcohol intake: current Alcohol intake frequency: other Alcohol type: beer and hard liquor Patient Tobacco Use Status: Tobacco use Unknown Advance Directives Date on File: 08/06/23 service: No Physical Exam Vital Signs: Vital Signs: Last Vital Signs Temp 97.9 F 05/18/24 12:16 Pulse 57 05/18/24 12:16 Resp 16 05/18/24 12:16 BP 132/86 05/18/24 12:16 Pulse Ox 97 05/18/24 12:16 O2 Del Method Room Air 05/18/24 12:16 BMI result Body Mass Index 25.6 Const: General: cooperative, healthy appearing and no acute distress Orientation/consciousness: patient oriented x3 Limitations: no limitations HEENT: Other: + Hematoma noted to left scalp Head: Yes normal to inspection, No Heath's sign and No raccoon eyes Ears: hearing grossly normal bilaterally General nose exam: Normal external nose present Face and sinus: Yes normal facial exam Eyes: General: appearance normal, both eyes and all related structures Pupils: Equal, round and reactive pupils present EOM: EOMs intact bilaterally Neck: Neck: Yes normal visual inspection, Yes no meningeal signs and No anterior neck swelling Resp: Effort & Inspection: normal respiratory effort and no respiratory distress Auscultation: clear to auscultation bilaterally Cardio: Rate: regular rate Heart sounds: S1 normal heart sound present and S2 normal heart sound present GI: Inspection: Yes normal to inspection Palpation (GI): Soft to palpation, nontender, no guarding and not rigid Back/Spine/Pelvis: Other: No midline cervical/thoracic/lumbar spinous tenderness/step-off or deformity Skin: Rashes: no rashes Wounds: no wounds Neuro: General: patient oriented x3, gait normal, tone normal, moves all extremities, no meningeal signs, no focal motor deficits and CN's II-XI intact bilaterally Cranial nerves: Yes CN's II-XII intact bilaterally, Yes Equal, round and reactive pupils present and Yes Bilaterally intact EOM present Cognition (Neuro): normal cognition Speech: No Abnormal speech present Gait exam (Neuro): Normal gait present Motor exam (neuro): 5/5 motor strength present throughout Extrem: General: Yes normal to inspection Course Course Course Narrative: 1206--CT head/brain wo IV con IMPRESSION: No acute fracture, bony calvarium. No acute intracranial hemorrhage. Prior vascular insult left MCA territory and to a lesser extent right MCA territory. Small vessel occlusive disease. Atherosclerosis disease, intracranial. CT cervical spine wo IV con IMPRESSION: Multilevel cervical spondylosis C3 C6 without acute fracture or trauma-related listhesis. Calcified pannus formation periodontal C1 region. Atherosclerosis disease. 9 mm spiculated attenuation abutting the posterior pleural left upper lung lobe. Retropharyngeal trajectory of a calcified left ICA anterior to C2. Fleischner guidelines were followed. Results discussed with patient with fish bait processing supervisor including worrisome signs and symptoms and strict return precautions, and when to return to the emergency department. They verbalized understanding and feel safe for discharge at this time. Medical Decision Making Medical Decision Making MDM Narrative: 89-year-old male with a past medical history of AFib on Xarelto, HTN, CVA, subdural hematoma, presenting to the ED complaining of left-sided headache radiating to neck s/p mechanical slip and fall at home 3 days ago when reaching down to pick something off the ground. on exam vital signs stable, NAD, nontoxic appearing, physical exam as noted above. No midline spinous tenderness throughout or red flag symptoms. Ambulating with steady gait. Concern for fracture vs ICH vs contusion. Lower suspicion for ACS, metabolic infectious etiologies Plan: Head/C-spine CT Please refer to course for remaining clinical decision making, interpretation of labs/imaging results, and discussions with consultants and/or family members. Differential Diagnosis Differential Diagnoses: The differential diagnosis associated with the presentation includes As above Admission/Observation Consideration of admission/observation: Escalation of care including admission/observation considered Lab Data MDM Lab Attestation statement: I reviewed the patient's lab results. Independent Interpretation I performed an independent interpretation of an: CT Scan Radiology Impression Discussion of test interpretation with radiology: I have reviewed the radiologist's reading. External Record Review External record reviewed: Inpatient record, Office record, Outpatient record, Prior outpatient labs, Prior outpatient radiology, Primary care record and Outside ED record Tests considered The following testing was considered but not selected: As above Prescription Management I considered prescription management with: Pain Medication Chronic Conditions Patient?s care impacted by: Hypertension and Other Social Determinants Patient?s care significantly limited by Social Determinants of Health including: Problems related to primary support group and Other Social Determinant of Health Discharge Plan Discharge Clinical Impression: Head injury, Cervical spondylosis, Fall Patient Disposition: Home, Self-Care Instructions: Osteoarthritis (DC), Head Injury (ED) Additional Instructions: the CT scan of your head and neck do not show any acute findings Please have close follow-up with your primary care doctor Take Tylenol for pain If you have recurrent falls, persistent headache, weakness, nausea / vomiting, vision change or loss return to the ED Prescriptions: No Action metoprolol tartrate 50 mg tablet 75 mg PO BID Qty: 270 1RF Rx Instructions: Overdue for follow up appt. Please call our office to schedule appointment so we can continue filling your prescriptions. [phone]. atorvastatin 20 mg tablet 20 mg PO DAILY lisinopril 40 mg tablet 40 mg PO DAILY amlodipine 5 mg tablet 5 mg PO DAILY rivaroxaban 20 mg tablet 20 mg PO BEDTIME Referrals: Chloé Swenson MARITIME OFFICER [Primary Care Provider] - 3 days Interventions: ED Discharge Assessment Last Done: 05/18/24 12:16 Discharge Date/Time: 05/18/24 12:17 Print Language: Lithuanian
--- NOTE | 2024-05-18 10:23 | PC.NURSE ---
patient a&ox3, rr equal/non labored, vitals stable upon arrival to room, pt c/o 7-8 left posterior head pain when palpated- pt notable hematoma to area, pt to go to CT scan, plan of care ongoing
[2024-05-18 12:16] VITALS: BP 132/86; PULSE 57; RESP 16; TEMP 36.6; O2SAT 97
== END 2024-05-18 12:17 | disposition home or self-care (01) ==
PROVIDERS: Emergency Provider Emergency Medicine Emergency Medical Services; PCP Nurse Practitioner Primary Care
DX: S09.90XA Unspecified injury of head, initial encounter (principal); W01.0XXA Fall on same level from slipping, tripping and stumbling without subsequent striking against object, initial encounter; Y93.9 Activity, unspecified; Y92.9 Unspecified place or not applicable; Y99.9 Unspecified external cause status; M47.812 Spondylosis without myelopathy or radiculopathy, cervical region; I48.91 Unspecified atrial fibrillation; R51.9 Headache, unspecified; Z79.01 Long term (current) use of anticoagulants
CPT/HCPCS: 70450; 72125; 99284

== ENCOUNTER → 2024-05-18 10:17 | Outpatient (BNV) | payer OTHER, SELFPAY | PROVIDERS: Emergency Provider Emergency Medicine Emergency Medical Services; PCP Nurse Practitioner Primary Care; Visit Provider Radiology Diagnostic Radiology | DX: S09.90XA Unspecified injury of head, initial encounter (principal); W19.XXXA Unspecified fall, initial encounter | CPT/HCPCS: 70450; 72125 ==

== ENCOUNTER 2024-06-17 13:33 | Outpatient (AMB) | payer OTHER, SELFPAY ==
--- NOTE | 2024-06-17 13:40 | HO.NEPHOV ---
Vital Signs 06/17/24 13:41 Height 5 ft 5 in Weight 160 lb 4 oz BMI 26.7 Pulse 72 Pulse Source Pulse Oximeter Pulse Oximetry (%) 97 Oxygen Delivery Method Room Air Intake Visit Reasons: Rscng 06/16 appt Pressed Or Blown Glass Worker Required: Yes Pressed Or Blown Glass Worker Language: Product Delivery Specialist Name: [id number] Accompanied by: Self / Same As Patient Allergies No Known Allergies [No Known Allergies*] Allergy (Verified 06/17/24 13:44) Medication List - Last Reconciled 06/17/24 by Marlon Lam MD amlodipine 5 mg PO DAILY atorvastatin 20 mg PO DAILY lisinopril 40 mg PO DAILY metoprolol tartrate 75 mg (1.5 x 50 mg) PO BID rivaroxaban 20 mg PO BEDTIME Do you need a note to return to daycare/school/sports/work: No HPI Comments Details: 88-year-old male with a PMH significant for?HTN, HLD, persistent AFib on Xarelto, hx of CVA in 2014 and 2017, hx of subdural hematoma in 2016, and arterial embolism s/p embolectomy He was hospitalized on 08/03/2023 and was found to have serum creatinine 1.07. Two days later at the time of discharge creatinine was 1.07 and this is probably his baseline. He has a history of bilateral renal cyst. This cyst are reportedly unchanged from the imaging done in 2016 and 2008. He has been referred for evaluation of renal cysts as well as renal insufficiency. He is hard of hearing he forgot his hearing aids today. It was rather difficult to communicate with him despite having the slab depiler operator over the phone. 10/30/23 Here for follow up Has hearing aids but NO batteries!!! communicated with interpretor [facility] Medical History A-fib Other and unspecified hyperlipidemia Essential hypertension Subdural hematoma Arterial embolism Cerebrovascular accident (CVA) Permanent atrial fibrillation Surgical History History of embolectomy (~04/2016) Family History Father No problems noted. Mother No problems noted. Social History Household Members: None Housing: House Do you presently have visiting nurse or other home services: No Alcohol intake: current Alcohol intake frequency: other Alcohol type: beer and hard liquor Patient Tobacco Use Status: Tobacco use Unknown Advance Directives Date on File: 08/06/23 service: No Physical Exam Vital Signs: BMI result Body Mass Index 26.7 Const General: comfortable; No acute distress Orientation/consciousness: patient oriented x3 Eyes General: appearance normal, both eyes and all related structures Visual Caro: normal visual caro by confrontation Neck Neck: Yes supple and Yes no JVD Resp Effort & Inspection: normal respiratory effort and respiratory effort not decreased Auscultation: rhonchi Cardio Palpation: no palpable S3 and no palpable S4 Heart sounds: no rubs GI Inspection: Yes normal to inspection Palpation (GI): Soft to palpation Percussion: Yes normal to percussion Auscultation: normal bowel sounds General: Yes no CVA tenderness Back/Spine/Pelvis Back: no CVA tenderness Skin General skin exam: no petechiae and no purpura Neuro General: patient oriented x3 and no focal motor deficits Extrem General: No clubbing and No edema Results Reviewed Results Reviewed: Renal ultrasound. 08/21/2023. 1. Bilateral renal cysts, some of which are complex with multiple septations. If further workup is desired, MRI would be the exam of choice for further evaluation, in this patient with renal failure. However, if no therapy would be considered if an enhancing portion of the mass is seen, no further workup is probably necessary. 2. Bilateral renal cortical thinning and increased echogenicity consistent with medical renal disease. 3. A superimposed cause for renal function worsening could be cortical thinning. Nephrology Results: Sodium 141 mmol/L (135-145) 04/28/24 Potassium 3.8 mmol/L (3.3-5.1) 04/28/24 Chloride 106 mmol/L (96-108) 04/28/24 Carbon Dioxide 29 mmol/L (22-29) 04/28/24 BUN 16 mg/dL (9-16) 04/28/24 Creatinine 1.13 mg/dL (0.5-1.4) 04/28/24 Calcium 8.7 mg/dL (8.4-10.2) 04/28/24 Urine Protein Negative mg/dL (Neg-Trace) 04/28/24 Urine Creatinine 91.90 mg/dL 09/30/23 Assessment & Plan Assessment & Plan (1) CKD (chronic kidney disease): Code(s): N18.9 - Chronic kidney disease, unspecified Category: Medical (2) Renal cyst: Code(s): N28.1 - Cyst of kidney, acquired Category: Medical Plan 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 This has resolved and creatinine is back to baseline of 1.07. Nader has a history of renal cyst. He has multiple renal cysts in both kidneys some of them are rather complex no solid masses has been reported. These findings are compatible to the imaging done in 2016 and 2008. At this point, since the cyst remains stable,we will continue to monitor. If there is any suspicious cyst then it would be worthwhile to proceed with an MRI. urine for cytology not available Follow up renal ultrasound ordered Goal is to slow the progression of the kidney disease Continue to avoid nephrotoxic agents since including NSAIDs Avoid hypotension. Optimize blood pressure and maintain less than 130/80 Encouraged him to stay on low-sodium diet Increase fluid intake. Creatinine is better Orders: Orders Basic Metabolic Panel 4 Months N18.9 - Chronic kidney disease, unspecified Total Protein Urine Random 4 Months N18.9 - Chronic kidney disease, unspecified UA and rflx microscopic 4 Months N18.9 - Chronic kidney disease, unspecified Creatinine Urine 4 Months N18.9 - Chronic kidney disease, unspecified US renal BI Today N28.1 - Cyst of kidney, acquired Coding Level of Care Code Est Pt Level 4 (30075) Diagnoses CKD (chronic kidney disease) N18.9 Renal cyst N28.1
[2024-06-17 13:41] VITALS: PULSE 72; O2SAT 97; BMI 26.7
--- OUTSIDE RECORDS SUMMARY | 2024-06-17 16:37 | XMS_ITS | Encounter Summary ---
Author Organization [employer] Address [address] [place] [address] Care Team Providers Care Center Director Lead Teacher Name Role Phone Chloé Swenson Primary Care Provider [phone] Reason for Visit * Reason Onset Date Comments Hospital Follow-up 08/08/2023 Encounter Details Date Type Department Care Team (Late st Contact Info) Description 08/08/2023 Telephone [facility] MEDICINE [address] [place], [place] [phone] Chloé Swenson ANP [address] [place], [place] [phone] Hospital Follow-up Social History Tobacco Use Types [...] t he electric, gas, oil or water [employer] threatened to shut off services in your [...] 10:14 AM EDT Tc from Isabel with [facility] requesting a HDF appt. Hospital: [facility] Date of admission: 08/02 Discharge date: 08/04 Diagnosed: Respiratory Distress Son (also known as pt's health care proxy) requested call back, Isabel provided contact number. Please contact Son at [phone]. documented in this encounter Plan of Treatment Not on file documented as of this encounter Visit Diagnoses Not on filedocumented in this encounter Care Teams Center Director Lead Teacher Relationship Specialty Start Date End Date Chloé Swenson ANP [address] [place] [id number] PCP - General Family Medicine 02/01/21 documented as of this encounter
--- OUTSIDE RECORDS SUMMARY | 2024-06-17 16:37 | XMS_ITS | Encounter Summary ---
Author Organization [employer] Address [address] [facility] [address] [place] [address] Care Team Providers Care Gravel Inspector Name Role Phone Chloé Swenson Primary Care Provider [phone] Encounter Details Date Type Department Care Team (Late st Contact Info) Description 07/24/2022 Telephone [facility] MEDICINE [address] [place], [place] [phone] Eula Mcdowell LPN Social History Tobacco Use [...] on filedocumented in this encounter Care Teams Gravel Inspector Relationship Specialty Start Date End Date Chloé Swenson ANP [address] [place] [address] PCP - General Family Medicine 02/01/21 documented as of this encounter
--- OUTSIDE RECORDS SUMMARY | 2024-06-17 16:37 | XMS_ITS | Encounter Summary ---
Author Organization [employer] Address [address] [place] [address] Care Team Providers Care Head Of Data Name Role Phone Chloé Swenson Primary Care Provider [phone] Reason for Visit * Reason Comments Med Refill Encounter Details Date Type Department Care Team ([facility] st Contact Info) Description 01/20/2023 Refill [facility] MEDICINE [address] [place], [place] [phone] Chloé Swenson ANP [address] [place], [place] [phone] Essential hypertension; Hyperlipidemia, unspecified hyperlipidemia type; Atrial [...] (CMS/HCC) documented in this encounter Care Teams Head Of Data Relationship Specialty Start Date End Date Chloé Swenson ANP [address] [place] [id number] PCP - General Family Medicine 02/01/21 documented as of this encounter
--- OUTSIDE RECORDS SUMMARY | 2024-06-17 16:37 | XMS_ITS | Clinical Summary ---
Author Organization [employer] Address [address] [facility] [address] [place] [address] Care Team Providers Care Registered Account Administrator Name Role Phone Oriana Gifford Primary Care Provider [phone] Allergies No known active allergies Medications rivaroxaban [...] THE MORNING 90 tablet 3 4 Active albuterol 108 (90 Base) MCG/ACT inhalerIndications :Chronic obstructive pulmonary disease, unspecified COPD type (CMS/HCC) Inhale 2 puffs every 4 (four) hours if needed for shortness of breath. 18 g 1 4 Active metoprolol tartrate (Lopressor) 50 MG tabletIndications: Essential hypertension TAKE 1 & 1/2 TABLETS (75 MG) BY MOUTH 2 TIMES DAILY. 270 tablet 3 5 Active azithromycin (Zithromax) 250 MG tabletIndications: COPD exacerbation (CMS/HCC) Take 2 tabs PO daily x 1d then 1 tab PO daily on D2 to D5 6 tablet 5 Active Active Problems Problem Noted Date Diagnosed Date COPD exacerbation 05/11/2024 Assessment & Plan (05/11/2024 4:20 PM EDT): Patient educated to avoid triggers I will prescribe for patient prednisone 60 mg for 5 days and azithromycin 500 mg on day 1 and then to 50 mg on day 2-5 Patient also referred to pulmonology Encounter for preventive health examination 02/01 Assessment [...] Encounters Date Type Department Care Team Description 05/19/[address] [facility] [address] [place] [address] Aimee Tubbs, [employer] DETAILER Follow-up 05/18/2024 Orders Only [facility] External Provider, [facility] 05/11/2024 2:20 PM EDT Office Visit [facility] [address] [place] [address] Ibeth Silverman MD COPD exacerbation ([facility]) (Primary Dx) 05/03/[address] [facility] [address] [place] [address] Oriana Gifford ANP Essential hypertension 04/27/[address] [facility] [address] [place] [address] Oriana Gifford ANP Change PCP from Last 3 Months Immunizations Name Administration [...] Sign Reading Time Taken Comments Blood Pressure 140/84 05/11/2024 2:32 PM EDT Pulse 61 05/11/2024 2:32 PM EDT Temperature 36.7 ??C (98.1 ??F) 05/11/2024 2:32 PM ED T Respiratory Rate 24 05/11/2024 2:32 PM EDT Oxygen Saturation 96% 05/11/2024 2:32 PM EDT Inhaled Oxygen Concentration - - Weight 71.8 kg (158 lb 4 oz) 05/11/2024 2:32 PM EDT Height 165.1 cm (5' 5 ) 05/11/2024 2:32 PM EDT Body Mass Index 26.33 05/11/2024 2:32 PM EDT Plan of Treatment Health Maintenance Due Date Last Done Comments Dental Prophylaxis 1935 Dental X-Ray: Bitewings 1935 Alcohol/Substance Use Screening 1949 RSV Patients and Patients Aged 60 years or older (1 - 1-dose 75+ series) 2012 Zoster Vaccines (2 of 3) 06/24/2017 04/29/2017 Dental Oral Exam 01/27/2023 07/26/2022, 01/12/2021 Depression Screening 07/16/2023 07/15/2022, 07/16/19 SDOH Screening 07/16/2023 07/15/2022 Dental X-Ray: Full Mouth 01/14/2024 01/12/2021 Lipid Panel 04/25/2025 04/25/2020 Tobacco Screening 05/11/2025 05/11/2024 DTaP/Tdap/Td Vaccines (2 - Td or Tdap) [...] Procedure Name Priority Date/Time Associated Diagnosis Comments CT CERVICAL SPINE WO CONTRAST Routine 05/18/2024 10:[address] HEAD WO CONTRAST Routine 05/18/2024 1 0:44 AM EDT PERIODIC ORAL EVALUATION - ESTABLISHED PATIENT Routine 07/26/2022 10:00 AM EDT PANORAMIC RADIOGRAPHIC IMAGE Routine 01/12/2021 12:00 AM EST LIPID PANEL, STANDARD Routine 04/25/2020 3:04 PM EST from Last 3 Months or Most Recently Relevant to Health Maintenance Results * CT Cervical Spine w/o Contrast (05/18/2024 10:44 AM EDT) Anatomical Region Laterality Modality Spine, C-spine Computed Tomogra phy 05/18/2024 10:4 4 AM EDT Narrative 05/18/2024 11:42 AM EDT ? [facility] ?[address] ?[place] [address] ? CT Scan Report ? Signed ? Patient: Adele Vaughan,Nader ?MR#: M ?? [id number] ? : 1935 ?Acct:[id number] ? Age/Sex: 89 / M ?ADM Date: 05/18/24 ? Loc: HO.ED ? Attending Dr: ? Ordering Physician: Lydia Gibson ?? Date of Service: 05/18/24 ?? Procedure(s): CT cervical spine wo IV con ?? Accession Number(s): [id number] ? cc: Lydia Gibson; ORIANA GIFFORD NP ? Report Number: ?? [id number]: Total DLP = ??984.00 mGy-cm ?? EXAMINATION: ?? CT CERVICAL SPINE WITHOUT CONTRAST ? CLINICAL INFORMATION: ?? Status post fall. ? COMPARISON: ?? August 19, 2017. ? TECHNIQUE: ?? Contiguous axial images through the cervical spine using 3 mm ?? collimation with bone and soft tissue algorithm. ?? Sagittal and coronal reformatted images acquired. ? This CT examination was performed using dose optimization techniques as ?? appropriate, variously including the following: ?? *Automated exposure control ?? *Adjustment of mA and/or kV according to patient size (this includes ?? techniques or standardized protocols for targeted exams where dose is ?? matched to indication/reason for exam; i.e. extremities or head) ?? *Use of iterative reconstruction technique. ?? DLP: 362.81 mGy centimeter. ? FINDINGS: ?? Limited by patient's motion artifact. ? Craniocervical junction is intact. Degenerative changes with partially ?? calcified pannus formation at the periodontal C1 region. ?? Marginal osteophyte formation and endplate irregularities sclerosis and ?? decreased intervertebral disc height at C3-4 C4-5 and to a lesser ?? extent C5-6 and C6-7 levels. ?? Reverse curvature apex at C3. ?? Facet joint hypertrophy at C2-3, C4-5 C5-6 and C6-7 levels. Incomplete ?? ankylosis at the left facet joints C2-3 level. ?? Grade 1 retrolisthesis C4-5 on a degenerative basis. Grade 1 ?? anterolisthesis C6-7 on a degenerative basis. ? C1 is intact. ?? C2 is intact. ?? C3 is intact. Left facet joint hypertrophy. ?? C4 is intact. ?? C5 is intact. ?? C6 is intact. ?? C7 is intact. ?? No gross prevertebral compartment hematoma. ?? There is a retropharyngeal trajectory of a calcified left ICA. ?? Bilateral apical lung scarring. ?? Tympanic cavities and mastoid cells are aerated. ?? Calcified plaques in the V3/V4 segment, left vertebral artery and ?? basilar artery. ?? Bilateral apical lung scarring more pronounced on the left side with ?? the questionable 9 mm spiculated the attenuation abutting the posterior ?? pleura. ? CT/CT cervical spine wo IV con ?? IMPRESSION: ?? Multilevel cervical spondylosis C3 C6 without acute fracture or ?? trauma-related listhesis. ?? Calcified pannus formation periodontal C1 region. ?? Atherosclerosis disease. ?? 9 mm spiculated attenuation abutting the posterior pleural left upper ?? lung lobe. ?? Retropharyngeal trajectory of a calcified left ICA anterior to C2. ? Fleischner guidelines were followed. ? Electronically signed by: ??Alban Patel MD ??05/18/2024 11:40 AM ?? EDT RP ? Dictated By: ?Alban Archer MD ? Signed By: ?<Electronically signed by Alban Tubbs MD in OV> ? 05/18/24 1140 ? DD/ 1044 ? TD/TT: 05/18/24 1044 ? Shoe Puller: ? Procedure Note Anisa Teran - 05/18/[address] [place] [address] [address] Scan Report Signed Patient: Nader KhouryMR#: M [id number] : 8Acct:[id number] Age/Sex: 89 / MADM Date: 05/18/24 Loc: HO.ED Attending Dr: Ordering Physician: Lydia Gibson Date of Service: 05/18/24 Procedure(s): CT cervical spine wo IV con Accession Number(s): [id number] cc: Lydia Gibson; ORIANA GIFFORD NP Report Number: [id number]: Total DLP = 984.00 mGy-cm EXAMINATION: CT CERVICAL SPINE WITHOUT CONTRAST CLINICAL INFORMATION: Status post fall. COMPARISON: August 19, 2017. TECHNIQUE: Contiguous axial images through the cervical spine using 3 mm collimation with bone and soft tissue algorithm. Sagittal and coronal reformatted images acquired. This CT examination was performed using dose optimization techniques as appropriate, variously including the following: *Automated exposure control *Adjustment of mA and/or kV according to patient size (this includes techniques or standardized protocols for targeted exams where dose is matched to indication/reason for exam; i.e. extremities or head) *Use of iterative reconstruction technique. DLP: 362.81 mGy centimeter. FINDINGS: Limited by patient's motion artifact. Craniocervical junction is intact. Degenerative changes with partially calcified pannus formation at the periodontal C1 region. Marginal osteophyte formation and endplate irregularities sclerosis and decreased intervertebral disc height at C3-4 C4-5 and to a lesser extent C5-6 and C6-7 levels. Reverse curvature apex at C3. Facet joint hypertrophy at C2-3, C4-5 C5-6 and C6-7 levels. Incomplete ankylosis at the left facet joints C2-3 level. Grade 1 retrolisthesis C4-5 on a degenerative basis. Grade 1 anterolisthesis C6-7 on a degenerative basis. C1 is intact. C2 is intact. C3 is intact. Left facet joint hypertrophy. C4 is intact. C5 is intact. C6 is intact. C7 is intact. No gross prevertebral compartment hematoma. There is a retropharyngeal trajectory of a calcified left ICA. Bilateral apical lung scarring. Tympanic cavities and mastoid cells are aerated. Calcified plaques in the V3/V4 segment, left vertebral artery and basilar artery. Bilateral apical lung scarring more pronounced on the left side with the questionable 9 mm spiculated the attenuation abutting the posterior pleura. CT/CT cervical spine wo IV con IMPRESSION: Multilevel cervical spondylosis C3 C6 without acute fracture or trauma-related listhesis. Calcified pannus formation periodontal C1 region. Atherosclerosis disease. 9 mm spiculated attenuation abutting the posterior pleural left upper lung lobe. Retropharyngeal trajectory of a calcified left ICA anterior to C2. Fleischner guidelines were followed. Electronically signed by: Alban Patel MD 05/18/2024 11:40 AM EDT RP Dictated By: Alban Archer MD Signed By: <Electronically signed by Alban Tubbs MDin OV> 05/18/24 1140 DD/ 1044 TD/TT: 05/18/24 1044 Shoe Puller: us [facility] External Provider IMG CT PROCEDURES Final Result * CT Head w/o Contrast (05/18/2024 10:44 AM EDT) Anatomical Region Laterality Modality Head, Neck Computed Tomogra phy 05/18/2024 10:4 4 AM EDT Narrative 05/18/2024 11:31 AM EDT ? [facility] ?[address] ?[place] [address] ? CT Scan Report ? Signed ? Patient: Nader Khoury ?MR#: M ?? [id number] ? : 1935 ?Acct:[id number] ? Age/Sex: 89 / M ?ADM Date: 05/18/24 ? Loc: HO.ED ? Attending Dr: ? Ordering Physician: Lydia Gibson ?? Date of Service: 05/18/24 ?? Procedure(s): CT head/brain wo IV con ?? Accession Number(s): [id number] ? cc: Lydia Gibson; ORIANA GIFFORD NP ? Report Number: ?? [id number]: Total DLP = ??984.00 mGy-cm ?? EXAMINATION: ?? CT HEAD WITHOUT CONTRAST ? CLINICAL INFORMATION: ?? fall on [place] with head strike. ??Hematoma noted ? COMPARISON: ?? September 26, 2019 ? TECHNIQUE: ?? Contiguous axial imaging was performed from the skull base to vertex ?? without intravenous administration of contrast. ? This CT examination was performed using dose optimization techniques as ?? appropriate, variously including the following: ?? *Automated exposure control ?? *Adjustment of mA and/or kV according to patient size (this includes ?? techniques or standardized protocols for targeted exams where dose is ?? matched to indication/reason for exam; i.e. extremities or head) ?? *Use of iterative reconstruction technique ? DLP: ?? 964 mm mGy-cm ? FINDINGS: ?? The bony calvarium is intact. ?? The skull base is intact. ?? No acute intracranial hemorrhage, mass effect, midline shift, ?? hydrocephalus or herniation. ?? There is a large macrocystic encephalomalacia involving the left ?? frontotemporal opercular/external capsule left parietal/insular ?? subinsular resulting in well aerated degeneration into the left ?? midbrain. ?? There is focal encephalomalacia, subcortical white matter, right ?? frontal opercular. ?? Prominence of the extra-axial CSF spaces cerebral sulci and ventricles. ?? I lateral multifocal patchy deep periventricular white matter ?? hypodensities. ?? Old lacunar infarcts in the basal ganglia. ?? Calcified plaques in the V3 segment, left vertebral and proximal ?? basilar arteries. Calcified plaques in the cavernous supracavernous ?? segments both ICAs. ?? Retention cysts versus polyp, left maxillary sinus. No air-fluid ?? levels. Retention cysts versus polyps in the ostiomeatal units. ?? Tympanic cavities and mastoid cells are aerated. ?? Edentulous, maxilla. ?? No hematoma in the intraconal or the extraconal compartments of the ?? orbits. ?? Calcifications versus radiopaque the ocular prosthesis, bilaterally. ?? Status post intraocular lens surgery bilaterally. ? CT/CT head/brain wo IV con ?? IMPRESSION: ?? No acute fracture, bony calvarium. ?? No acute intracranial hemorrhage. ?? Prior vascular insult left MCA territory and to a lesser extent right ?? MCA territory. ?? Small vessel occlusive disease. ?? Atherosclerosis disease, intracranial. ? Electronically signed by: ??Alban Patel MD ??05/18/2024 11:28 AM ?? EDT RP ? Dictated By: ?Alban Archer MD ? Signed By: ?<Electronically signed by Alban Tubbs MD in OV> ? 05/18/24 1128 ? DD/ 1044 ? TD/TT: 05/18/24 1044 ? Shoe Puller: ? Procedure Note Anisa Teran - 05/18/[address] [address] [address] Scan Report Signed Patient: Nader KhouryMR#: M [id number] : 8Acct:[id number] Age/Sex: 89 / MADM Date: 05/18/24 Loc: HO.ED Attending Dr: Ordering Physician: Lydia Gibson Date of Service: 05/18/24 Procedure(s): CT head/brain wo IV con Accession Number(s): [id number] cc: Lydia Gibson; ORIANA GIFFORD NP Report Number: [id number]: Total DLP = 984.00 mGy-cm EXAMINATION: CT HEAD WITHOUT CONTRAST CLINICAL INFORMATION: fall on Friday with head strike. Hematoma noted COMPARISON: September 26, 2019 TECHNIQUE: Contiguous axial imaging was performed from the skull base to vertex without intravenous administration of contrast. This CT examination was performed using dose optimization techniques as appropriate, variously including the following: *Automated exposure control *Adjustment of mA and/or kV according to patient size (this includes techniques or standardized protocols for targeted exams where dose is matched to indication/reason for exam; i.e. extremities or head) *Use of iterative reconstruction technique DLP: 964 mm mGy-cm FINDINGS: The bony calvarium is intact. The skull base is intact. No acute intracranial hemorrhage, mass effect, midline shift, hydrocephalus or herniation. There is a large macrocystic encephalomalacia involving the left frontotemporal opercular/external capsule left parietal/insular subinsular resulting in well aerated degeneration into the left midbrain. There is focal encephalomalacia, subcortical white matter, right frontal opercular. Prominence of the extra-axial CSF spaces cerebral sulci and ventricles. I lateral multifocal patchy deep periventricular white matter hypodensities. Old lacunar infarcts in the basal ganglia. Calcified plaques in the V3 segment, left vertebral and proximal basilar arteries. Calcified plaques in the cavernous supracavernous segments both ICAs. Retention cysts versus polyp, left maxillary sinus. No air-fluid levels. Retention cysts versus polyps in the ostiomeatal units. Tympanic cavities and mastoid cells are aerated. Edentulous, maxilla. No hematoma in the intraconal or the extraconal compartments of the orbits. Calcifications versus radiopaque the ocular prosthesis, bilaterally. Status post intraocular lens surgery bilaterally. CT/CT head/brain wo IV con IMPRESSION: No acute fracture, bony calvarium. No acute intracranial hemorrhage. Prior vascular insult left MCA territory and to a lesser extent right MCA territory. Small vessel occlusive disease. Atherosclerosis disease, intracranial. Electronically signed by: Alban Patel MD 05/18/2024 11:28 AM EDT RP Dictated By: Alban Archer MD Signed By: <Electronically signed by Alban Tubbs MDin OV> 05/18/24 1128 DD/ 1044 TD/TT: 05/18/24 1044 Shoe Puller: [facility] External Provider IMG CT PROCEDURES Final Result * (ABNORMAL) LIPID PANEL, STANDARD (04/25/2020 3:04 [...] ?? Getachew SANTIAGO et al. BULL. 2013;310(19): 9067-0823 ?? (http://education.pocketvillage.com/faq/KZC298) Non-HDL Cholesterol 83 <130 mg/dL (calc) [facility] Comment: For patients with diabetes plus 1 major ASCVD risk ?? factor, treating to a non-HDL-C goal of <100 mg/dL ?? (LDL-C of <70 mg/dL) is considered a therapeutic ?? option. Triglycerides 168(H) <150 mg/dL [facility] 04/25/2020 3:04 PM EST us Joan Mcgee MD LAB BLOOD ORDERABLES Final Re sult [facility] [address] from Last 3 Months or Most Recently Relevant to Health Maintenance Insurance [facility] - [facility] Care Teams Registered Account Administrator Relationship Specialty Start Date End Date Oriana Gifford ANP [address] [place] [address] PCP - General Family Medicine 02/01/21
== END 2024-06-17 13:55 | disposition home or self-care (01) ==
LOC: HO.HKA 13:34
PROVIDERS: PCP Nurse Practitioner Primary Care; Visit Provider Internal Medicine Hypertension Specialist
DX: N18.9 Chronic kidney disease, unspecified (principal); N28.1 Cyst of kidney, acquired
CPT/HCPCS: 99214

== ENCOUNTER → 2024-06-17 13:33 | Outpatient (BNVA) | payer OTHER, SELFPAY | PROVIDERS: PCP Nurse Practitioner Primary Care; Visit Provider Internal Medicine Hypertension Specialist | DX: N18.9 Chronic kidney disease, unspecified (principal); N28.1 Cyst of kidney, acquired | CPT/HCPCS: 99212 ==

== ENCOUNTER 2024-07-30 13:09 | Outpatient (AMB) | payer OTHER, SELFPAY ==
--- OUTSIDE RECORDS SUMMARY | 2024-07-30 13:20 | XMS_ITS | Encounter Summary ---
Author Organization [employer] Address [address] [facility] 7[address] [place] [address] Care Team Providers Care Vp Emerging Media Name Role Phone Chloé Swenson Primary Care Provider [phone] Encounter Details Date Type Department Care Team (Late st Contact Info) Description 07/24/2022 Telephone [facility] [address] [place], [place] [id number] Eula Mcdowell LPN Social History Tobacco Use [...] on filedocumented in this encounter Care Teams [employer]p [employer] Relationship Specialty Start Date End Date Chloé Swenson ANP [address] [place] [address] PCP - General Family Medicine 02/01/21 documented as of this encounter
[2024-07-30 13:26] VITALS: BP 134/74; PULSE 78; O2SAT 95; BMI 25.9
--- NOTE | 2024-07-30 13:26 | MHC.OFFVIS ---
Vital Signs 07/30/24 13:26 Height 5 ft 5 in Weight 155 lb 6.814 oz BMI 25.9 BP 134/74 Blood Pressure Location Lt brachial Position Sitting Pulse 78 Pulse Source Pulse Oximeter Pulse Oximetry (%) 95 Oxygen Delivery Method Room Air Intake Visit Reasons: copd Accompanied by: Self / Same As Patient Allergies No Known Allergies [No Known Allergies*] Allergy (Verified 07/30/24 13:29) HPI Comments Details: The patient is here for pulmonary evaluation. The patient is an 89-year-old gentleman with history of asthma. He presented with worsening cough and shortness of breath. He states that he has had increasing chest tightness for the last few months. Moderate severity. Does have some inhalers although he does not know the names. He does not taking regularly. He does cough also on a regular basis. Moderate severity. He is not aware of any potential triggers. We did look at some imaging studies. He had a chest x-ray back in 2021 demonstrating slight increased cardiac size but otherwise lung appeared to be normal. He also had a CT scan of the chest back in 2016 that I personally reviewed demonstrating no evidence of any abnormal parenchymal disease of the lungs. He has not had any recent pulmonary function studies. At this point will gotten maximize his respiratory therapy since he has significant wheezing and rhonchi on exam and will provide him with some therapy in case developing some bronchitis. He will have a repeat chest x-ray and PFTs and will follow-up in 6-8 weeks. Consider allergy testing. [facility] Medical History (Updated 08/01/24 @ 22:38 by Yann Nice MD) Chronic allergic rhinitis Asthma A-fib Other and unspecified hyperlipidemia Essential hypertension Subdural hematoma Arterial embolism Cerebrovascular accident (CVA) Permanent atrial fibrillation Surgical History History of embolectomy (~04/2016) Family History Father No problems noted. Mother No problems noted. Social History (Updated 07/30/24 @ 13:29 by Jennifer Villasenor CMA) Household Members: None Housing: House Do you presently have visiting nurse or other home services: No Alcohol intake: current Alcohol intake frequency: other Alcohol type: beer and hard liquor Patient Tobacco Use Status: Former Tobacco user Advance Directives Date on File: 08/06/23 service: No Review of Systems Const Denies chills, Denies fatigue, Denies fever(s), Denies frequent falls, Denies weakness, Denies weight gain and Denies weight loss ENT Denies dizziness Card Denies chest pain, Denies leg edema, Denies lightheadedness, Denies palpitations, Denies dyspnea, Denies dyspnea on exertion, Denies orthopnea and Denies other (Loss of consciousness) Resp Reports chest congestion, Reports cough, Denies dyspnea, Denies dyspnea on exertion and Reports wheezing GI Denies hematochezia and Denies change in bowel habits Musc Denies abnormal gait, Denies muscle weakness, Denies numbness, Denies radiating pain into limb and Denies tingling Neuro Denies abnormal gait, Denies dizziness, Denies frequent falls, Denies numbness, Denies tingling and Denies weakness Endo Denies fatigue and Denies palpitations Aller/Immun Reports wheezing Physical Exam Vital Signs: Last Vital Signs Pulse 78 07/30/24 13:26 BP 134/74 07/30/24 13:26 Pulse Ox 95 07/30/24 13:26 Oxygen Delivery Method Room Air 07/30/24 13:26 BMI result Body Mass Index 25.9 Const General: comfortable; No acute distress Orientation/consciousness: patient oriented x3 Eyes General: appearance normal, both eyes and all related structures Visual Caro: normal visual caro by confrontation Neck Neck: Yes supple and Yes no JVD Resp Effort & Inspection: normal respiratory effort and respiratory effort not decreased Auscultation: rhonchi and diminished lung sounds Cardio Palpation: no palpable S3 and no palpable S4 Heart sounds: no rubs GI Inspection: Yes normal to inspection Palpation (GI): Soft to palpation Percussion: Yes normal to percussion Auscultation: normal bowel sounds General: Yes no CVA tenderness Back/Spine/Pelvis Back: no CVA tenderness Skin General skin exam: no petechiae and no purpura Neuro General: patient oriented x3 and no focal motor deficits Extrem General: No clubbing and No edema Assessment & Plan Assessment & Plan (1) Asthma: Code(s): J45.909 - Unspecified asthma, uncomplicated Category: Medical Qualifiers: Asthma severity: moderate Asthma persistence: persistent Asthma complication type: uncomplicated Qualified Code(s): J45.40 - Moderate persistent asthma, uncomplicated (2) Permanent atrial fibrillation: Code(s): I48.21 - Permanent atrial fibrillation Category: Medical (3) Chronic allergic rhinitis: Code(s): J30.9 - Allergic rhinitis, unspecified Category: Medical Plan PFTs CXR Start Trelegy KIET as needed start Doxycycline F/U 2 months Orders: Orders PFT pulmonary function test 07/30/24 J45.909 - Unspecified asthma, uncomplicated XR chest 2V 07/30/24 J45.909 - Unspecified asthma, uncomplicated Medications: New vmepyrfshxe-ifpwvrjaz-sjzvfvbw 200-62.5-25 mcg (Trelegy Ellipta) 1 inh inhalation DAILY 60 ea 12RF 30 days albuterol sulfate 90 mcg/actuation (Ventolin HFA) 2 puffs inhalation QID PRN 18 grams 11RF shortness of breath or wheezing 30 days doxycycline monohydrate 100 mg PO BID 28 tabs 0RF 14 days Coding Level of Care Code New Pt Level 4 (85727) Diagnoses Moderate persistent asthma without complication J45.40 Asthma severity: moderate Asthma persistence: persistent Asthma complication type: uncomplicated Permanent atrial fibrillation I48.21 Chronic allergic rhinitis J30.9 Time Spent (min) 40
== END 2024-07-30 14:00 | disposition home or self-care (01) ==
LOC: HO.HPS 13:10
PROVIDERS: PCP Nurse Practitioner Primary Care; Visit Provider Hospitalist
DX: J45.40 Moderate persistent asthma, uncomplicated (principal); I48.21 Permanent atrial fibrillation; J30.9 Allergic rhinitis, unspecified
CPT/HCPCS: 99204

== ENCOUNTER → 2024-07-30 13:09 | Outpatient (BNVA) | payer OTHER, SELFPAY | PROVIDERS: PCP Nurse Practitioner Primary Care; Visit Provider Hospitalist | DX: J45.40 Moderate persistent asthma, uncomplicated (principal); J30.9 Allergic rhinitis, unspecified; I48.21 Permanent atrial fibrillation | CPT/HCPCS: 99202 ==

== ENCOUNTER 2024-10-21 10:50 | Outpatient (AMB) | payer OTHER, SELFPAY ==
[2024-10-21 10:53] VITALS: BP 134/68; PULSE 77; O2SAT 95; BMI 26.3
--- NOTE | 2024-10-21 10:53 | HO.NEPHOV ---
Vital Signs 10/21/24 10:53 Height 5 ft 5 in Weight 158 lb BMI 26.3 BP 134/68 Blood Pressure Location Rt brachial Position Sitting Pulse 77 Pulse Source Pulse Oximeter Pulse Oximetry (%) 95 Oxygen Delivery Method Room Air Intake Visit Reasons: 6 MO FU Manufacturing Project Engineer Required: Yes Manufacturing Project Engineer Name: bienvenido Walker Accompanied by: Self / Same As Patient Allergies No Known Allergies (No Known Allergies*) Allergy (Verified 10/21/24 10:55) Medication List - Last Reconciled 10/21/24 by Marlon Lam MD albuterol sulfate 90 mcg/actuation (Ventolin HFA) 2 puffs inhalation QID PRN 30 days amlodipine 5 mg PO DAILY atorvastatin 20 mg PO DAILY doxycycline monohydrate 100 mg PO BID 14 days cvajfqsycny-miedgsywf-mtxmnbvh 200-62.5-25 mcg (Trelegy Ellipta) 1 inh inhalation DAILY 30 days lisinopril 40 mg PO DAILY metoprolol tartrate 75 mg (1.5 x 50 mg) PO BID rivaroxaban 20 mg PO BEDTIME HPI Comments Details: 88-year-old male with a PMH significant for?HTN, HLD, persistent AFib on Xarelto, hx of CVA in 2014 and 2017, hx of subdural hematoma in 2016, and arterial embolism s/p embolectomy He was hospitalized on 08/03/2023 and was found to have serum creatinine 1.07. Two days later at the time of discharge creatinine was 1.07 and this is probably his baseline. He has a history of bilateral renal cyst. This cyst are reportedly unchanged from the imaging done in 2016 and 2008. He has been referred for evaluation of renal cysts as well as renal insufficiency. He is hard of hearing he forgot his hearing aids today. It was rather difficult to communicate with him despite having the interpreter for the deaf over the phone. 10/30/23 Here for follow up Has hearing aids but NO batteries!!! communicated with interpretor 10/21/24 DId not bring hearing aid again Unable to communicate despite having interpretor [facility] Medical History (Updated 08/01/24 @ 22:38 by Yann Nice MD) Chronic allergic rhinitis Asthma A-fib Other and unspecified hyperlipidemia Essential hypertension Subdural hematoma Arterial embolism Cerebrovascular accident (CVA) Permanent atrial fibrillation Surgical History History of embolectomy (~04/2016) Family History Father No problems noted. Mother No problems noted. Social History Household Members: None Housing: House Do you presently have visiting nurse or other home services: No Alcohol intake: current Alcohol intake frequency: other Alcohol type: beer and hard liquor Patient Tobacco Use Status: Former Tobacco user Advance Directives Date on File: 08/06/23 service: No Physical Exam Vital Signs: Last Vital Signs Pulse 77 10/21/24 10:53 BP 134/68 10/21/24 10:53 Pulse Ox 95 10/21/24 10:53 Oxygen Delivery Method Room Air 10/21/24 10:53 BMI result Body Mass Index 26.3 Const General: comfortable; No acute distress Orientation/consciousness: patient oriented x3 Eyes General: appearance normal, both eyes and all related structures Visual Caro: normal visual caro by confrontation Neck Neck: Yes supple and Yes no JVD Resp Effort & Inspection: normal respiratory effort and respiratory effort not decreased Auscultation: rhonchi Cardio Palpation: no palpable S3 and no palpable S4 Heart sounds: no rubs GI Inspection: Yes normal to inspection Palpation (GI): Soft to palpation Percussion: Yes normal to percussion Auscultation: normal bowel sounds General: Yes no CVA tenderness Back/Spine/Pelvis Back: no CVA tenderness Skin General skin exam: no petechiae and no purpura Neuro General: patient oriented x3 and no focal motor deficits Extrem General: No clubbing and No edema Results Reviewed Nephrology Results: Sodium, (135-145) 141 mmol/L 04/28/24 Potassium, (3.3-5.1) 3.8 mmol/L 04/28/24 Chloride, (96-108) 106 mmol/L 04/28/24 Carbon Dioxide, (22-29) 29 mmol/L 04/28/24 BUN, (9-16) 16 mg/dL 04/28/24 Creatinine, (0.5-1.4) 1.13 mg/dL 04/28/24 Calcium, (8.4-10.2) 8.7 mg/dL Δ 04/28/24 Urine Protein, (Neg-Trace) Negative mg/dL 04/28/24 Renal US 08/04/23 Assessment & Plan Assessment & Plan (1) CKD (chronic kidney disease): Code(s): N18.9 - Chronic kidney disease, unspecified Category: Medical (2) Renal cyst: Code(s): N28.1 - Cyst of kidney, acquired Category: Medical Plan 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 This has resolved and creatinine is back to baseline of 1.07. Nader has a history of renal cyst. He has multiple renal cysts in both kidneys some of them are rather complex no solid masses has been reported. These findings are compatible to the imaging done in 2016 and 2008. At this point, since the cyst remains stable,we will continue to monitor. If there is any suspicious cyst then it would be worthwhile to proceed with an MRI. urine for cytology not available Follow up renal ultrasound ordered Goal is to slow the progression of the kidney disease Continue to avoid nephrotoxic agents since including NSAIDs Avoid hypotension. Optimize blood pressure and maintain less than 130/80 Encouraged him to stay on low-sodium diet Increase fluid intake. Creatinine is better 10/21/24 REscheduled appt Needs to bring hearing aid Reordered USG Orders: Orders US renal BI Today N28.1 - Cyst of kidney, acquired Coding Level of Care Code Est Pt Level 2 (84558) Diagnoses CKD (chronic kidney disease) N18.9 Renal cyst N28.1
--- OUTSIDE RECORDS SUMMARY | 2024-10-21 12:22 | XMS_ITS | Encounter Summary ---
Author Organization [employer] Address [address] [place] [address] Care Team Providers Care Keg Filler Name Role Phone Chloé Swenson Primary Care Provider [phone] Encounter Details Date Type Department Care Team (Late st Contact Info) Description 07/24/2022 Telephone [facility] MED[facility]INE [address] [place], [place] [phone] Eula Mcdowell LPN Social History Tobacco Use [...] on filedocumented in this encounter Care Teams Keg Filler Relationship Specialty Start Date End Date Chloé Swenson ANP [address] [place] [address] PCP - General Family Medicine 02/01/21 documented as of this encounter
== END 2024-10-21 11:21 | disposition left against medical advice (07) ==
LOC: HO.HKA 10:50
PROVIDERS: PCP Nurse Practitioner Primary Care; Visit Provider Internal Medicine Hypertension Specialist
DX: N18.9 Chronic kidney disease, unspecified (principal); N28.1 Cyst of kidney, acquired
CPT/HCPCS: 99212

== ENCOUNTER 2024-10-21 11:14 | Outpatient (REF) | payer OTHER, SELFPAY ==
[2024-10-21 13:22] LABS: Appearance Urine Clear; Glucose Urine UA Negative (Negative); PH 5.5 (5.0-9.0); Specific Gravity - Urine 1.015 (1.005-1.025)
[2024-10-21 13:35] LABS: Anion Gap 12 (12-20); Blood Urea Nitrogen 16 mg/dL (9-16); Calcium 8.6 mg/dL (8.4-10.2); Carbon Dioxide 25 mmol/L (22-29); Chloride 108 mmol/L (96-108); Estimated Glomerular Filt Rate 50; Potassium 3.8 mmol/L (3.3-5.1); Sodium 141 mmol/L (135-145)
[2024-10-21 14:02] LABS: Total Protein Urine Random 10 mg/dL (<12)
== END 2024-10-21 11:15 | disposition home or self-care (01) ==
LOC: HO.10HDL 11:14
PROVIDERS: Visit Provider Internal Medicine Hypertension Specialist
DX: N18.2 Chronic kidney disease, stage 2 (mild) (principal); N28.1 Cyst of kidney, acquired
CPT/HCPCS: 36415; 80048; 81003; 82570; 84156; 99212

== ENCOUNTER 2024-11-05 12:55 | Outpatient (AMB) | payer OTHER, SELFPAY ==
--- NOTE | 2024-11-05 12:57 | A.OFFVIS_ITS ---
Vital Signs 11/05/24 12:58 Height 5 ft 5 in Weight 160 lb 14.999 oz BMI 26.8 BP 146/70 H Blood Pressure Location Lt brachial Position Sitting Pulse 70 Pulse Source Pulse Oximeter Pulse Oximetry (%) 94 Oxygen Delivery Method Room Air Intake Visit Reasons: copd Allergies No Known Allergies (No Known Allergies*) Allergy (Verified 11/05/24 13:01) HPI Comments Details: The patient is an 89-year-old gentleman with history of asthma. He presented with worsening cough and shortness of breath. He states that he has had i ncreasing chest tightness for the last few months. Moderate severity. Does have some inhalers although he does not know the names. He does not taking regularly. He does cough also on a regular basis. Moderate severity. He is not aware of any potential triggers. We did look at some imaging studies. He had a chest x-ray back in 2021 demonstrating slight increased cardiac size but otherwise lung appeared to be normal. He also had a CT scan of the chest back in 2016 that I personally reviewed demonstrating no evidence of any abnormal parenchymal disease of the lungs. He has not had any recent pulmonary function studies. At this point will gotten maximize his respiratory therapy since he has significant wheezing and rhonchi on exam and will provide him with some therapy in case developing some bronchitis. He will have a repeat chest x-ray and PFTs and will follow-up in 6-8 weeks. Consider allergy testing. 11/05/2024 the patient is here for pulmonary follow-up visit. Overall he is doing a lot better. The Trelegy inhaler has been very affecting beneficial. He has not had to use his rescue inhaler. The patient has been traveling has not had any issues. He did have a chest x-ray back several years ago. I did request that he get a repeat x-ray this time. Denies any significant shortness of breath. Denies any significant chest congestion. He does have a rescue inhaler but he does not use it at this time. Will continue with the current respiratory regimen will follow-up in the springtime if he has any issues prior to this he will call for an earlier assessment. [facility] Medical History (Updated 08/01/24 @ 22:38 by Yann Nice MD) Chronic allergic rhinitis Asthma A-fib Other and unspecified hyperlipidemia Essential hypertension Subdural hematoma Arterial embolism Cerebrovascular accident (CVA) Permanent atrial fibrillation Surgical History History of embolectomy (~04/2016) Family History Father No problems noted. Mother No problems noted. Social History Household Members: None Housing: House Do you presently have visiting nurse or other home services: No Alcohol intake: current Alcohol intake frequency: other Alcohol type: beer and hard liquor Patient Tobacco Use Status: Former Tobacco user Advance Directives Date on File: 08/06/23 service: No Review of Systems Const Denies chills, Denies fatigue, Denies fever(s), Denies frequent falls, Denies weakness, Denies weight gain and Denies weight loss ENT Denies dizziness Card Denies chest pain, Denies leg edema, Denies lightheadedness, Denies palpitations, Denies dyspnea, Denies dyspnea on exertion, Denies orthopnea and Denies other (Loss of consciousness) Resp Denies chest congestion, Reports cough, Denies dyspnea, Denies dyspnea on exertion and Denies wheezing GI Denies hematochezia and Denies change in bowel habits Musc Denies abnormal gait, Denies muscle weakness, Denies numbness, Denies radiating pain into limb and Denies tingling Neuro Denies abnormal gait, Denies dizziness, Denies frequent falls, Denies numbness, Denies tingling and Denies weakness Endo Denies fatigue and Denies palpitations Aller/Immun Denies wheezing Physical Exam Vital Signs: Last Vital Signs Pulse 70 11/05/24 12:58 BP 146/70 H 11/05/24 12:58 Pulse Ox 94 11/05/24 12:58 Oxygen Delivery Method Room Air 11/05/24 12:58 BMI result Body Mass Index 26.8 Const General: comfortable; No acute distress Orientation/consciousness: patient oriented x3 Eyes General: appearance normal, both eyes and all related structures Visual Caro: normal visual caro by confrontation Neck Neck: Yes supple and Yes no JVD Resp Effort & Inspection: normal respiratory effort and respiratory effort not decreased Auscultation: no rhonchi and diminished lung sounds Cardio Palpation: no palpable S3 and no palpable S4 Heart sounds: no rubs GI Inspection: Yes normal to inspection Palpation (GI): Soft to palpation Percussion: Yes normal to percussion Auscultation: normal bowel sounds General: Yes no CVA tenderness Back/Spine/Pelvis Back: no CVA tenderness Skin General skin exam: no petechiae and no purpura Neuro General: patient oriented x3 and no focal motor deficits Extrem General: No clubbing and No edema Assessment & Plan Assessment & Plan (1) Asthma: Code(s): J45.909 - Unspecified asthma, uncomplicated Category: Medical Qualifiers: Asthma complication type: uncomplicated Asthma persistence: persistent Asthma severity: moderate Qualified Code(s): J45.40 - Moderate persistent asthma, uncomplicated (2) Permanent atrial fibrillation: Code(s): I48.21 - Permanent atrial fibrillation Category: Medical (3) Chronic allergic rhinitis: Code(s): J30.9 - Allergic rhinitis, unspecified Category: Medical Plan conitnue Trelegy KIET as needed CXR with next visit F/U 6-8 months Orders: Orders XR chest 2V Today J45.40 - Moderate persistent asthma, uncomplicated Medications: Refilled ntxgzipybut-nqvtzmmmx-smlmrtma 200-62.5-25 mcg (Trelegy Ellipta) 1 inh inhalation DAILY 60 ea 12RF 30 days Coding Level of Care Code Est Pt Level 4 (97759) Diagnoses Moderate persistent asthma without complication J45.40 Asthma complication type: uncomplicated Asthma persistence: persistent Asthma severity: moderate Permanent atrial fibrillation I48.21 Chronic allergic rhinitis J30.9 Time Spent (min) 16
[2024-11-05 12:58] VITALS: BP 146/70; PULSE 70; O2SAT 94; BMI 26.8
--- OUTSIDE RECORDS SUMMARY | 2024-11-05 13:09 | XMS_ITS | Clinical Summary ---
Author Organization [employer] Address [address] [place] [address] Care Team Providers Care Continuous Improvement Intern Name Role Phone Chloé Swenson Primary Care Provider [phone] Allergies No known active allergies Medications lisinopril 40 MG tabletIndications: Essential hypertension TAKE [...] TIMES DAILY. 270 tablet 3 5 Active rivaroxaban (Xarelto) 20 MG tabletIndications: Atrial fibrillation, unspecified type (CMS/HCC) TAKE 1 TABLET BY MOUTH EVERY DAY WITH EVENING MEAL 90 tablet 1 5 Active Trelegy Ellipta 200-62.5-25 MCG/ACT aerosol powder take 1 puff by mouth every day 5 Active Active Problems Problem Noted Date [...] Encounters Date Type Department Care Team Description 08/23/2024 Orders Only [facility] [address] [place] [id number] Chloé Swenson ANP from Last 3 Months Immunizations Immunization Administration Dates Next Due Influenza High-dose Quadrivalent [...] 61 05/11/2024 2:32 PM EDT Temperature 36.7 C (98.1 F) 05/11/2024 2:32 PM EDT Respiratory Rate 24 05/11/2024 2:32 PM EDT [...] 07/15/2022 Dental X-Ray: Full Mouth 01/14/2024 01/12/2021 COVID-19 Vaccine ( season) 2024 02/27/2024, 07/15/2022, 12/20/2021, Additional history exists Influenza Vaccine (#1) 2024 , 12/20/2021, 01/12/2021, Additional history exists Lipid Panel 04/25/2025 04/25/2020 Tobacco Screening 05/11/2025 05/11/2024 DTaP/Tdap/Td Vaccines (2 - Td or Tdap) 04/29/2027 04/29/2017, 05/27/2005 Pneumococcal Vaccine: 50+ Years Completed 07/15/2022, 01/07/2017 HIB Vaccines Aged Out No longer eligi [...] patient's age to complete this topic Meningococcal B Vaccine Aged Out No l onger eligible based on patient's age to complete [...] [facility] Comment: Reference range: <100 Desirable range <100 mg/dL for primary prevention; <70 mg/dL for patients with CHD or diabetic patients with > or = 2 CHD risk factors. LDL-C is now calculated using the Getachew-Peters calculation, which is a validated novel method providing better accuracy than the Friedewald equation in the estimation of LDL-C. Getachew SS et al. BULL. 2013;310(19): 6313-8450 (http://education.[employer].Photolitec/faq/ZRC196) Non-HDL Cholesterol 83 <130 mg/dL (calc) [facility] Comment: For patients with diabetes plus 1 major ASCVD risk factor, treating to a non-HDL-C goal of <100 mg/dL (LDL-C of <70 mg/dL) is considered a therapeutic option. Triglycerides 168(H) <150 mg/dL [facility] 04/25/2020 3:04 PM EST us Joan Mcgee MD LAB BLOOD ORDERABLES Final Re sult [facility] [address] from Last 3 Months or Most Recently Relevant to Health Maintenance Insurance [facility] [employer] OPTIONS (HMO D-SNP) DENTAL [facility] Care Teams Continuous Improvement Intern Relationship Specialty Start Date End Date Chloé Swenson ANP [address] [place] [address] PCP - General Family Medicine 02/01/21
--- OUTSIDE RECORDS SUMMARY | 2024-11-05 13:09 | XMS_ITS | Encounter Summary ---
Author Organization [employer] Address [address] [place] [address] Care Team Providers Care Abnormal Psychology Teacher Name Role Phone Chloé Swenson Primary Care Provider [phone] Encounter Details Date Type Department Care Team (Late st Contact Info) Description 07/24/2022 Telephone [facility]INE [address] [place], [place] [phone] Eula Mcdowell LPN Social History Tobacco Use [...] on filedocumented in this encounter Care Teams Abnormal Psychology Teacher Relationship Specialty Start Date End Date hCloé Swenson ANP [address] [place] [address] PCP - General Family Medicine 02/01/21 documented as of this encounter
--- OUTSIDE RECORDS SUMMARY | 2024-11-05 13:09 | XMS_ITS | Encounter Summary ---
Author Organization [employer] Address [address] [place] [address] Care Team Providers Care Store Stock Associate Name Role Phone Chloé Swenson Primary Care Provider [phone] Reason for Visit * Reason Onset Date Comments Hospital Follow-up 08/08/2023 Encounter Details Date Type Department Care Team (Late st Contact Info) Description 08/08/2023 Telephone [facility] MED[facility]INE [address] [place], [place] [phone] Chloé Swenson ANP [address] [place], [place] [phone] Hospital Follow-up Social History Tobacco Use Types Packs/Day Years Used Date Smoking Tobacco: Former Cigarettes 0.3 0.5 Smokeless Tobacco: Never Alcohol Use Standard Drinks/Week Comments Yes 0 (1 standard drink = 0.6 oz pur e alcohol) Housing Stability Answer Date Recorded What is your housing situation today? I have romel loene 01/11/[address] you li [...] 10:14 AM EDT Tc from Isabel with [facility] requesting a HDF appt. Hospital: [facility] [place] [facility] Date of admission: 08/02 Discharge date: 08/04 Diagnosed: Respiratory Distress Son (also known as pt's health care proxy) requested call back, Isabel provided contact number. Please contact Son at [phone]. documented in this encounter Plan of Treatment Not on file documented as of this encounter Visit Diagnoses Not on filedocumented in this encounter Care Teams Store Stock Associate Relationship Specialty Start Date End Date Chloé Swenson ANP [address] [place] [id number] PCP - General Family Medicine 02/01/21 documented as of this encounter
--- OUTSIDE RECORDS SUMMARY | 2024-11-05 13:09 | XMS_ITS | Encounter Summary ---
Author Organization [employer] Address [address] [facility] 7t [place] [address] Care Team Providers Care Stud Beef Cattle Farmer Name Role Phone Chloé Swenson Primary Care Provider [phone] Reason for Visit * Reason Comments Med Refill Encounter Details Date Type Department Care Team ([facility] st Contact Info) Description 01/20/2023 Refill [facility] MEDICINE [address] [place], [place] [phone] Chloé Swenson ANP [address] [place], [place] [phone] Essential hypertension; Hyperlipidemia, unspecified hyperlipidemia type; Atrial [...] (CMS/HCC) documented in this encounter Care Teams Stud Beef Cattle Farmer Relationship Specialty Start Date End Date Chloé Swenson ANP [address] [place] [id number] PCP - General Family Medicine 02/01/21 documented as of this encounter
== END 2024-11-05 13:15 | disposition home or self-care (01) ==
LOC: HO.HPS 12:56
PROVIDERS: PCP Nurse Practitioner Primary Care; Visit Provider Hospitalist
DX: J45.40 Moderate persistent asthma, uncomplicated (principal); I48.21 Permanent atrial fibrillation; J30.9 Allergic rhinitis, unspecified
CPT/HCPCS: 99214

== ENCOUNTER → 2024-11-05 12:55 | Outpatient (BNVA) | payer OTHER, SELFPAY | PROVIDERS: PCP Nurse Practitioner Primary Care; Visit Provider Hospitalist | DX: J45.40 Moderate persistent asthma, uncomplicated (principal); I48.21 Permanent atrial fibrillation; J30.9 Allergic rhinitis, unspecified | CPT/HCPCS: 99212 ==

== ENCOUNTER 2024-11-08 12:57 | Outpatient (AMB) | payer OTHER, SELFPAY ==
--- NOTE | 2024-11-08 13:04 | HO.NEPHOV_ITS ---
Vital Signs 11/08/24 13:05 Height 5 ft 5 in Weight 158 lb BMI 26.3 BP 130/66 Blood Pressure Location Lt brachial Position Sitting Pulse 59 Pulse Source Pulse Oximeter Pulse Oximetry (%) 98 Oxygen Delivery Method Room Air Intake Visit Reasons: R/s from 10/21/24-[facility] Webfocus Developer Required: Yes Webfocus Developer Name: Lisette [id number] Accompanied by: Self / Same As Patient Allergies No Known Allergies (No Known Allergies*) Allergy (Verified 11/08/24 13:07) Medication List - Last Reconciled 11/08/24 by Marlon Lam MD albuterol sulfate 90 mcg/actuation (Ventolin HFA) 2 puffs inhalation QID PRN 30 days amlodipine 5 mg PO DAILY atorvastatin 20 mg PO DAILY doxycycline monohydrate 100 mg PO BID 14 days nqtnhpouoqv-sjwpiddvu-kvychcvw 200-62.5-25 mcg (Trelegy Ellipta) 1 inh inhalation DAILY 30 days lisinopril 40 mg PO DAILY metoprolol tartrate 75 mg (1.5 x 50 mg) PO BID rivaroxaban 20 mg PO BEDTIME HPI Comments Details: 88-year-old male with a PMH significant for?HTN, HLD, persistent AFib on Xarelto, hx of CVA in 2014 and 2017, hx of subdural hematoma in 2016, and arterial embolism s/p embolectomy He was hospitalized on 08/03/2023 and was found to have serum creatinine 1.07. Two days later at the time of discharge creatinine was 1.07 and this is probably his baseline. He has a history of bilateral renal cyst. This cyst are reportedly unchanged from the imaging done in 2016 and 2008. He has been referred for evaluation of renal cysts as well as renal insufficiency. He is hard of hearing he forgot his hearing aids today. It was rather difficult to communicate with him despite having the principal bioinformatics specialist over the phone. 10/30/23 Here for follow up Has hearing aids but NO batteries!!! communicated with interpretor 11/08/24 The patient is an 89-year-old male presenting with hypertension management and monitoring of stable kidney cysts. Hypertension is controlled with amlodipine and lisinopril. Blood pressure is stable. Kidney cysts are stable with no new symptoms. Medications: - Amlodipine: for hypertension - Lisinopril: for hypertension Diagnostic Results: - Labs: Kidney function tests show stability - Imaging: Previous ultrasound showed stable kidney cysts [facility] Medical History (Updated 08/01/24 @ 22:38 by Yann Nice MD) Chronic allergic rhinitis Asthma A-fib Other and unspecified hyperlipidemia Essential hypertension Subdural hematoma Arterial embolism Cerebrovascular accident (CVA) Permanent atrial fibrillation Surgical History History of embolectomy (~04/2016) Family History Father No problems noted. Mother No problems noted. Social History Household Members: None Housing: House Do you presently have visiting nurse or other home services: No Alcohol intake: current Alcohol intake frequency: other Alcohol type: beer and hard liquor Patient Tobacco Use Status: Former Tobacco user Advance Directives Date on File: 08/06/23 service: No Physical Exam Vital Signs: Last Vital Signs Pulse 59 11/08/24 13:05 BP 130/66 11/08/24 13:05 Pulse Ox 98 11/08/24 13:05 Oxygen Delivery Method Room Air 11/08/24 13:05 BMI result Body Mass Index 26.3 Results Reviewed Nephrology Results: Sodium, (135-145) 141 mmol/L 10/21/24 Potassium, (3.3-5.1) 3.8 mmol/L 10/21/24 Chloride, (96-108) 108 mmol/L 10/21/24 Carbon Dioxide, (22-29) 25 mmol/L 10/21/24 BUN, (9-16) 16 mg/dL 10/21/24 Creatinine, (0.5-1.4) 1.35 mg/dL 10/21/24 Calcium, (8.4-10.2) 8.6 mg/dL 10/21/24 Urine Protein, (Neg-Trace) Negative mg/dL 10/21/24 Urine Creatinine 110.62 mg/dL 10/21/24 Renal US 08/04/23 Assessment & Plan Assessment & Plan (1) CKD (chronic kidney disease): Code(s): N18.9 - Chronic kidney disease, unspecified Category: Medical (2) Renal cyst: Code(s): N28.1 - Cyst of kidney, acquired Category: Medical Plan 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 This has resolved and creatinine is back to baseline of 1.07. Nader has a history of renal cyst. He has multiple renal cysts in both kidneys some of them are rather complex no solid masses has been reported. These findings are compatible to the imaging done in 2016 and 2008. At this point, since the cyst remains stable,we will continue to monitor. If there is any suspicious cyst then it would be worthwhile to proceed with an MRI. urine for cytology not available Follow up renal ultrasound reordered Explained through interpretor ( 11/08/24) Goal is to slow the progression of the kidney disease Continue to avoid nephrotoxic agents since including NSAIDs Avoid hypotension. Optimize blood pressure and maintain less than 130/80 Encouraged him to stay on low-sodium diet Increase fluid intake. Creatinine is better Orders: Orders Basic Metabolic Panel 6 Months N18.9 - Chronic kidney disease, unspecified US renal BI Today N28.1 - Cyst of kidney, acquired Coding Level of Care Code Est Pt Level 4 (72425) Diagnoses CKD (chronic kidney disease) N18.9 Renal cyst N28.1
[2024-11-08 13:05] VITALS: BP 130/66; PULSE 59; O2SAT 98; BMI 26.3
--- OUTSIDE RECORDS SUMMARY | 2024-11-08 15:06 | XMS_ITS | Encounter Summary ---
Author Organization [employer] Address [address] [facility] [address] [place] [address] Care Team Providers Care Chief Ultrasound Technologist Name Role Phone Chloé Swenson Primary Care Provider [phone] Reason for Visit * Reason Onset Date Comments Hospital Follow-up 08/08/2023 Encounter Details Date Type Department Care Team (Late st Contact Info) Description 08/08/2023 Telephone [facility]INE [address] [place], [place] [phone] Chloé Swenson ANP [address] [place], [place] [phone] Hospital Follow-up Social History Tobacco Use Types [...] 10:14 AM EDT Tc from Isabel with [facility] requesting a HDF appt. Hospital: [facility] Date of admission: 08/02 Discharge date: 08/04 Diagnosed: Respiratory Distress Son (also known as pt's health care proxy) requested call back, Isabel provided contact number. Please contact Son at [phone]. documented in this encounter Plan of Treatment Not on file documented as of this encounter Visit Diagnoses Not on filedocumented in this encounter Care Teams Chief Ultrasound Technologist Relationship Specialty Start Date End Date Chloé Swenson ANP [address] [place] [id number] PCP - General Family Medicine 02/01/21 documented as of this encounter
--- OUTSIDE RECORDS SUMMARY | 2024-11-08 15:06 | XMS_ITS | Encounter Summary ---
Author Organization [employer] Address [address] [facility] 7t [place] [address] Care Team Providers Care Research And Development Tester Name Role Phone Chloé Swenson Primary Care Provider [phone] Reason for Visit * Reason Comments Med Refill Encounter Details Date Type Department Care Team ([facility] st Contact Info) Description 01/20/2023 Refill [facility]INE [address] [place], [place] [phone] Chloé Swenson ANP [address] [place], [place] [phone] Essential hypertension; Hyperlipidemia, unspecified hyperlipidemia type; Atrial [...] (CMS/HCC) documented in this encounter Care Teams Research And Development Tester Relationship Specialty Start Date End Date Chloé Swenson ANP [address] [place] [id number] PCP - General Family Medicine 02/01/21 documented as of this encounter
--- OUTSIDE RECORDS SUMMARY | 2024-11-08 15:06 | XMS_ITS | Clinical Summary ---
Author Organization [employer] Address [address] [facility] [address] [place] [address] Care Team Providers Care Studio Operations Manager Name Role Phone Chloé Swenson Primary Care Provider [phone] Allergies No known active allergies Medications lisinopril [...] Department Care Team Description 08/23/2024 Orders Only [facility]INE [address] [place] [id number] Chloé Swenson ANP from Last 3 Months [...] your housing situation today? I have romel lenoe 01/11/[address] you li [...] LDL-C. Getachew SS et al. BULL. 2013;310(19): 8016-9831 (http://education.[employer].Mobilitus/faq/KRJ992) Non-HDL Cholesterol 83 <130 mg/dL (calc) [facility] Comment: For patients with diabetes plus 1 major ASCVD risk factor, treating to a non-HDL-C goal of <100 mg/dL (LDL-C of <70 mg/dL) is considered a therapeutic option. Triglycerides 168(H) <150 mg/dL [facility] 04/25/2020 3:04 PM EST us Joan Mcgee MD LAB BLOOD ORDERABLES Final Re sult [facility] [address] from Last 3 Months or Most Recently Relevant to Health Maintenance Insurance [facility] LONGTERM OPTIONS (HMO D-SNP) [facility] Care Teams Studio Operations Manager Relationship Specialty Start Date End Date Chloé Swenson ANP [address] [place] [address] PCP - General Family Medicine 02/01/21
--- OUTSIDE RECORDS SUMMARY | 2024-11-08 15:06 | XMS_ITS | Encounter Summary ---
Author Organization [employer] Address [address] [facility] 7t [place] [address] Care Team Providers Care Waitstaff Name Role Phone Chloé Swenson Primary Care Provider [phone] Encounter Details Date Type Department Care Team (Late st Contact Info) Description 07/24/2022 Telephone [facility] MEDICINE [address] [place], [place] [phone] Eula Mcdowell LPN Social History Tobacco Use [...] on filedocumented in this encounter Care Teams Waitstaff Relationship Specialty Start Date End Date Chloé Swenson ANP [address] [place] [address] PCP - General Family Medicine 02/01/21 documented as of this encounter
== END 2024-11-08 13:19 | disposition home or self-care (01) ==
LOC: HO.HKA 12:58
PROVIDERS: PCP Nurse Practitioner Primary Care; Visit Provider Internal Medicine Hypertension Specialist
DX: N18.9 Chronic kidney disease, unspecified (principal); N28.1 Cyst of kidney, acquired
CPT/HCPCS: 99214

== ENCOUNTER → 2024-11-08 12:57 | Outpatient (BNVA) | payer OTHER, SELFPAY | PROVIDERS: PCP Nurse Practitioner Primary Care; Visit Provider Internal Medicine Hypertension Specialist | DX: I10 Essential (primary) hypertension (principal); N18.9 Chronic kidney disease, unspecified; N28.1 Cyst of kidney, acquired | CPT/HCPCS: 99212 ==

== ENCOUNTER 2024-12-02 14:00 | Emergency (ER) | payer OTHER, SELFPAY ==
--- NOTE | ~2024-12-02 | XR_ITS ---
EXAMINATION: XR TIBIA AND FIBULA, RIGHT CLINICAL INFORMATION: posterior leg bruise. fracture? COMPARISON: None available. TECHNIQUE: AP and lateral views of the right tibia and fibula were obtained. FINDINGS: The bones and soft tissues are normal. No fracture. No osseous lesions. Surgical clips are seen just posterior to the tibial metaphysis. 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 XR/XR tibia fibula RT 2V IMPRESSION: No acute bony abnormality. Electronically signed by: Berlin Thorpe MD 12/02/2024 02:50 PM EDT
--- NOTE | ~2024-12-02 | US_ITS ---
EXAMINATION: US TRIPLEX LOWER EXTREMITY, RIGHT CLINICAL INFORMATION: Right calf mass and bruising COMPARISON: None available. TECHNIQUE: Color-flow triplex imaging with spectral analysis and compression Doppler were performed on the right lower extremity. FINDINGS: Respiratory variation, normal compression and augmented flow are noted throughout the right lower extremity. The visualized common femoral vein, superficial femoral vein, profunda femoral vein, popliteal vein and midcalf peroneal and posterior tibial venous segments show no evidence of deep venous thrombosis. In the subcutaneous soft tissues of the calf, there is a heterogeneous hypoechoic lobulated mass that measures 2.3 x 0.9 x 2.4 cm. It demonstrates mildly increased through transmission. It demonstrates no blood flow on color Doppler. US/US venous duplex LE RT IMPRESSION: No evidence of deep venous thrombosis involving the right lower extremity. There is a 2.2 x 0.9 x 2.4 cm heterogeneous hypoechoic mass in subcutaneous soft tissues in the medial right calf. Patient denies trauma in this region. This could represent hematoma. Chronic seroma is in the differential. Lack of robust peripheral blood flow on color Doppler makes an abscess unlikely. Hypovascular mass or neoplasm is not ruled out. Electronically signed by: Sushant Hirsch MD 12/02/2024 04:33 PM EDT
[2024-12-02 14:06] VITALS: BP 150/80; PULSE 72; RESP 18; TEMP 37; O2SAT 98; BMI 25.7
--- NOTE | 2024-12-02 14:28 | ED_ITS ---
HPI - General Adult General Chief complaint: General Medical Stated complaint: blood clot in R lower leg Time Seen by Provider: 12/02/24 17:44 Source: patient, RN notes reviewed, old records reviewed and cardiac exercise physiologist Mode of arrival: ambulatory Limitations: language barrier History of Present Illness ED Provider: Harish HPI narrative: 89-year-old male past medical history significant for DVT on Xarelto presents for evaluation of pain to his right lower leg. The patient reports he noticed the pain this morning while he was in the shower pain He does not remember any trauma to the area, falls or bumping his right leg. His pain is only present when he is walking or pushing on the area that is swollen. Denies any fevers, chills He has no other complaints or concerns at this time He is able to ambulate Related Data Home Medications ?Medication ?Instructions ?Recorded ?Confirmed amlodipine 5 mg tablet 5 mg PO DAILY 07/18/2011/08 atorvastatin 20 mg tablet 20 mg PO DAILY 07/18/2010/25 lisinopril 40 mg tablet 40 mg PO DAILY 07/18/2010/25 rivaroxaban 20 mg tablet 20 mg PO BEDTIME 07/18/20 Previous Rx's ?Medication ?Instructions ?Recorded metoprolol tartrate 50 mg tablet 75 mg (1.5 x 50 mg) P O BID #270 12/26/21 tabs albuterol sulfate 90 mcg/actuation 2 puff inhalation Q ID PRN 07/30/24 aerosol inhaler (Ventolin HFA) shortness of breath or wheezing 30 days #18 grams doxycycline monohydrate 100 mg 100 mg PO BID 14 days # 28 tabs 07/30/24 tablet fluticasone fur. 200 mcg-umeclid 1 inh inhalation COLE Y 30 days #60 11/05/24 62.5 mcg-vilant 25 mcg ea inhalat.powder (Trelegy Ellipta) Allergies Allergy/AdvReac Type Severity Reaction Status Date / Time No Known Allergies (No Known Allergy Verified 12/02/24 14:10 Allergies*) Review of Systems 2 Constitutional: Constitutional: Denies body ache(s), Denies chills, Denies fever(s) and Denies headache(s) Eyes: Eyes: Denies blurry vision ENT: Denies dizziness and Denies headache(s) Cardiovascular: Cardiovascular: Denies chest pain and Denies dyspnea Respiratory: Respiratory: Denies cough and Denies dyspnea Gastrointestinal: Gastrointestinal: Denies abdominal pain and Denies nausea Musculoskeletal: Musculoskeletal: Denies arthralgias, Denies joint swelling and Denies limited range of motion Integumentary/Breasts: Skin/Breast: Denies erythema, Reports skin pain and Reports skin swelling Neurologic: Denies dizziness and Denies headache(s) Psychiatric: Psychiatric: Denies anxiety PMFSH Past Medical History Medical History (Updated 12/03/24 @ 00:00 by Kelli Buckner) Chronic allergic rhinitis Asthma A-fib Other and unspecified hyperlipidemia Essential hypertension Subdural hematoma Arterial embolism Cerebrovascular accident (CVA) Permanent atrial fibrillation Surgical History History of embolectomy (~04/2016) Family History Family History Father No problems noted. Mother No problems noted. Social History Social History Household Members: None Housing: House Do you presently have visiting nurse or other home services: No Alcohol intake: current Alcohol intake frequency: other Alcohol type: beer and hard liquor Patient Tobacco Use Status: Former Tobacco user Advance Directives: Yes Advance Directives on File: Yes Advance Directives Date on File: 08/06/23 service: No Physical Exam ED Vital Signs: Vital Signs - 24 hr 12/02/24 14:06 12/02/24 17:50 12/02/24 18:13 Temperature 98.6 F 98.1 F 98.1 F Pulse Rate 72 66 66 Respiratory Rate 18 14 14 Blood Pressure 150/80 H 166/93 H 166/93 H Pulse Oximetry 98 96 96 Oxygen Delivery Method Room Air Room Air Room Air BMI result Body Mass Index 25.7 Const General: healthy appearing, comfortable, no acute distress, alert and awake Nutritional Appearance: well nourished Orientation/consciousness: patient oriented x3 HENMT Head: Yes normocephalic and Yes atraumatic Eyes Eyelids: Yes eyelids normal Conjunctivae: conjunctivae normal Sclerae: sclerae normal Corneas: corneas normal Pupils: Equal, round and reactive pupils present EOM: EOMs intact bilaterally Neck Neck: Yes full ROM Resp Effort & Inspection: normal respiratory effort, able to speak in complete sentences and not labored Skin General skin exam: elasticity normal Neuro General: patient oriented x3 Cranial nerves: Yes Equal, round and reactive pupils present and Yes Bilaterally intact EOM present Cognition (Neuro): normal cognition Extrem Other: There is about a 2 cm area of ecchymosis with induration and edema to the right mid calf. This area is minimally tender to palpation. No palpable cords, no erythema, no wounds. Course Course Course Narrative: RME: ED 9-year-old male presents to ED for right calf posterior bruise lump that is tender. Patient denies any recent trauma. Patient denies any chest pain or shortness of breath. On exam positive for right calf ecchymotic area with tenderness on palpation. Labs ordered and US orderd Medical Decision Making Medical Decision Making [facility] Narrative: 89-year-old male with history of DVT, anticoagulated, chronic kidney disease, hypertension, history of CVA presents for evaluation of pain and bruising to his right lower leg. Has a history of DVT which is why he was concerned. An ultrasound shows no evidence of DVT but does show a fluid collection consistent with a hematoma. He does have ecchymosis in the skin which is also consistent with a hematoma. The patient has no leukocytosis but does have a mild normocytic anemia. This is slightly worsened when compared to his baseline labs from August of 2023. This could be second-degree To his acute hematoma. His vital signs are stable. Chemistries are reassuring, his carbon dioxide level is 30 any made have undiagnosed sleep apnea, otherwise no electrolyte abnormalities renal function within normal limits. The patient be discharged with symptomatic care for his hematoma Differential Diagnosis Differential Diagnoses: The differential diagnosis associated with the presentation includes Contusion Hematoma DVT Seroma Cellulitis Abscess Lab Data [facility] Lab Attestation statement: I reviewed the patient's lab results. As above 12/02/24 14:36 12/02/24 14:36 Labs: Lab Results 12/02/24 Range/Units 14:36 WBC 7.6 (4.8-10.8) X10*3/uL RBC 4.54 L (4.60-5.80) X10*6/uL Hgb 13.8 L (14.0-18.0) g/dl Hct 41.0 L (42.0-52.0) % MCV 90.3 (80.0-98.0) fL MCH 30.4 (27.0-33.0) pg MCHC 33.7 (31.0-36.0) g/dl RDW 13.4 (11.0-16.0) % Plt Count 154 L (160-400) X10*3/uL MPV 11.3 (9.4-12.4) fL Immature Gran % (Auto) 0.4 (0.0-0.4) % Neut % (Auto) 56.5 (45-73) % Lymph % (Auto) 16.8 L (20-40) % Sabine % (Auto) 9.3 (2-11) % Eos % (Auto) 16.2 H (0-4) % Baso % (Auto) 0.8 (0-2) % Lymph # (Auto) 1.3 (1.2-4.9) X10*3/uL Sabine # (Auto) 0.7 (0.1-1.2) X10*3/uL Eos # (Auto) 1.2 H (0.0-0.4) X10*3/uL Baso # (Auto) 0.1 (0.0-0.2) X10*3/uL Abs Immat Gran (auto) 0.03 (0.00-0.03) X10*3/uL Absolute Neuts (auto) 4.3 (2.0-8.3) x10*3/uL Absolute Nucleated RBC 0.000 (0.0-0.012) X10*3/uL Nucleated RBC % (auto) 0.0 (0.0-0.2) /100WBC PT 14.4 H (10.9-12.4) SEC INR 1.3 H (0.9-1.1) APTT 36.3 H (26.7-34.1) SEC Sodium 139 (135-145) mmol/L Potassium 4.0 (3.3-5.1) mmol/L Chloride 104 (96-108) mmol/L Carbon Dioxide 30 H (22-29) mmol/L Anion Gap 9 L (12-20) BUN 14 (9-16) mg/dL Creatinine 1.25 (0.5-1.4) mg/dL Estim Creat Clear Calc 36.2 Estimated GFR 55 Random Glucose 161 H (60-115) mg/dL Calcium 8.5 (8.4-10.2) mg/dL Total Bilirubin 0.7 (0.0-1.0) mg/dL AST 33 (5-37) U/L ALT 17 (0-40) U/L Alkaline Phosphatase 121 H (39-117) U/L Total Protein 6.9 (6.5-8.0) g/dL Albumin 4.1 (3.5-5.0) g/dL Radiology Impression Discussion of test interpretation with radiology: I have reviewed the radiologist's reading. Radiologist Impression: FINDINGS: Respiratory variation, normal compression and augmented flow are noted throughout the right lower extremity. The visualized common femoral vein, superficial femoral vein, profunda femoral vein, popliteal vein and midcalf peroneal and posterior tibial venous segments show no evidence of deep venous thrombosis. In the subcutaneous soft tissues of the calf, there is a heterogeneous hypoechoic lobulated mass that measures 2.3 x 0.9 x 2.4 cm. It demonstrates mildly increased through transmission. It demonstrates no blood flow on color Doppler. US/US venous duplex LE RT IMPRESSION: No evidence of deep venous thrombosis involving the right lower extremity. There is a 2.2 x 0.9 x 2.4 cm heterogeneous hypoechoic mass in subcutaneous soft tissues in the medial right calf. Patient denies trauma in this region. This could represent hematoma. Chronic seroma is in the differential. Lack of robust peripheral blood flow on color Doppler makes an abscess unlikely. Hypovascular mass or neoplasm is not ruled out. Electronically signed by: Sushant Hirsch MD 12/02/2024 04:33 PM EDT Discharge Plan Discharge Clinical Impression: Hematoma of right lower leg Patient Disposition: Home, Self-Care Instructions: Contusion in Adults (ED) Additional Instructions: Your workup in the ER was reassuring. It looks like you have a hematoma or bruise of the right lower leg. Use Tylenol for pain and ice the area every 4 hours for 10-15 minutes. Elevate your leg above your heart while resting Follow up with your primary doctor, return for new or worsening symptom Prescriptions: No Action metoprolol tartrate 50 mg tablet 75 mg PO BID Qty: 270 1RF Rx Instructions: Overdue for follow up appt. Please call our office to schedule appointment so we can continue filling your prescriptions. [phone]. atorvastatin 20 mg tablet 20 mg PO DAILY lisinopril 40 mg tablet 40 mg PO DAILY amlodipine 5 mg tablet 5 mg PO DAILY rivaroxaban 20 mg tablet 20 mg PO BEDTIME albuterol sulfate [Ventolin HFA] 90 mcg/actuation HFA aerosol inhaler 2 puff inhalation QID PRN (Reason: shortness of breath or wheezing) 30 Days Qty: 18 11RF doxycycline monohydrate 100 mg tablet 100 mg PO BID 14 Days Qty: 28 0RF Trelegy Ellipta 200-62.5-25 mcg blister with device 1 inh inhalation DAILY 30 Days Qty: 60 12RF Interventions: ED Discharge Assessment Last Done: 12/02/24 18:13 Discharge Date/Time: 12/02/24 18:25 Print Language: Mosotho
[2024-12-02 14:41] LABS: MANUAL DIFF FLAG NO
[2024-12-02 14:44] LABS: Hematocrit 41.0 % (42.0-52.0); Hemoglobin 13.8 g/dl (14.0-18.0); Imm Gran Abs Auto 0.03 X10*3/uL (0.00-0.03); Imm Gran Pct Auto 0.4 % (0.0-0.4); Lymphocytes Absolute Auto 1.3 X10*3/uL (1.2-4.9); Mean Corpuscular HGB Conc 33.7 g/dl (31.0-36.0); Mean Corpuscular Hemoglobin 30.4 pg (27.0-33.0); Mean Corpuscular Volume 90.3 fL (80.0-98.0); NRBC Pct Auto 0.0 /100WBC (0.0-0.2); Platelet Count 154 X10*3/uL (160-400); Red Blood Count 4.54 X10*6/uL (4.60-5.80); White Blood Count 7.6 X10*3/uL (4.8-10.8)
[2024-12-02 14:47] LABS: NRBC Abs Auto 0.000 X10*3/uL (0.0-0.012)
[2024-12-02 14:50] LABS: INTERNATIONAL NORM RATIO 1.3 (0.9-1.1); Prothrombin Time 14.4 SEC (10.9-12.4)
[2024-12-02 14:53] LABS: Partial Thromboplastin Time 36.3 SEC (26.7-34.1)
[2024-12-02 15:04] LABS: Alanine Aminotransferase 17 U/L (0-40); Albumin Level 4.1 g/dL (3.5-5.0); Alkaline Phosphatase 121 U/L (39-117); Anion Gap 9 (12-20); Aspartate Amino Transferase 33 U/L (5-37); Blood Urea Nitrogen 14 mg/dL (9-16); Calcium 8.5 mg/dL (8.4-10.2); Carbon Dioxide 30 mmol/L (22-29); Chloride 104 mmol/L (96-108); Creatinine Clr Calc Pharmacy 36.2; Estimated Glomerular Filt Rate 55; Potassium 4.0 mmol/L (3.3-5.1); Sodium 139 mmol/L (135-145); Total Protein 6.9 g/dL (6.5-8.0)
[2024-12-02 17:50] VITALS: BP 166/93; PULSE 66; RESP 14; TEMP 36.7; O2SAT 96
[2024-12-02 18:13] VITALS: BP 166/93; PULSE 66; RESP 14; TEMP 36.7; O2SAT 96
--- OUTSIDE RECORDS SUMMARY | 2024-12-02 18:21 | XMS_ITS | Encounter Summary ---
Author Organization [employer] Address [address] [facility] 7t [place] [address] Care Team Providers Care Manual Training Teacher Name Role Phone Chloé Swenson Primary Care Provider [phone] Encounter Details Date Type Department Care Team (Late st Contact Info) Description 07/24/2022 Telephone [facility] MEDICINE [address] [place], [place] [phone] Eula Mcdowell LPN Social History Tobacco Use [...] on filedocumented in this encounter Care Teams Manual Training Teacher Relationship Specialty Start Date End Date Chloé Swenson ANP [address] [place] [address] PCP - General Family Medicine 02/01/21 documented as of this encounter
--- OUTSIDE RECORDS SUMMARY | 2024-12-02 18:21 | XMS_ITS | Encounter Summary ---
Author Organization [employer] Address [address] [place] [address] Care Team Providers Care Diabetes Education Coordinator Name Role Phone Oriana Gifford Primary Care Provider [phone] Encounter Details Date Type Department Care Team (Late st Contact Info) Description 12/02/2024 Orders Only GENERIC EXTERNAL DATA DEPARTMENT Provider, Generic External Data Social History Tobacco Use Types Packs/Day Years [...] on file documented as of this encounter Procedures Procedure Name Priority Date/Time Associated Diagnosis Comments US VENOUS DUPLEX LE RT Routine 3:43 PM EDT XR TIBIA FIBULA 2 VIEWS RIGHT Routine 12/02/2024 2:48 PM EDT CBC WITH AUTO DIFFERENTIAL Routine 12/02/2024 2:36 PM EDT APTT Routine 12/02/2024 2:36 PM EDT PROTHROMBIN TIME-INR Routine 12/02/2024 2:36 PM EDT COMPREHENSIVE METABOLIC PANEL Routine 12/02/2024 2:36 PM EDT documented in this encounter Results * US VENOUS DUPLEX LE RT (12/02/2024 3:43 PM EDT) Anatomical Region Laterality Modality Abdomen Ultrasound 12/02/2024 3:43 PM EDT Narrative 12/02/2024 4:35 PM EDT [place] [address] Ultrasound Report Signed Patient: Nader Khoury MR#: M [id number] : 1935 Acct:[id number] Age/Sex: 89 / M ADM Date: 12/02/24 Loc: HO.ED Attending Dr: Ordering Physician: Chriss Rasheed Date of Service: 12/02/24 Procedure(s): US venous duplex LE RT Accession Number(s): [id number] cc: Chriss Rasheed; ORIANA GIFFORD NP Reason for Exam: Right calf mass/burise. DVT. varicose rupture? EXAMINATION: US TRIPLEX LOWER EXTREMITY, RIGHT CLINICAL INFORMATION: Right calf mass and bruising COMPARISON: None available. TECHNIQUE: Color-flow triplex imaging with spectral analysis and compression Doppler were performed on the right lower extremity. FINDINGS: Respiratory variation, normal compression and augmented flow are noted throughout the right lower extremity. The visualized common femoral vein, superficial femoral vein, profunda femoral vein, popliteal vein and midcalf peroneal and posterior tibial venous segments show no evidence of deep venous thrombosis. In the subcutaneous soft tissues of the calf, there is a heterogeneous hypoechoic lobulated mass that measures 2.3 x 0.9 x 2.4 cm. It demonstrates mildly increased through transmission. It demonstrates no blood flow on color Doppler. US/US venous duplex LE RT IMPRESSION: No evidence of deep venous thrombosis involving the right lower extremity. There is a 2.2 x 0.9 x 2.4 cm heterogeneous hypoechoic mass in subcutaneous soft tissues in the medial right calf. Patient denies trauma in this region. This could represent hematoma. Chronic seroma is in the differential. Lack of robust peripheral blood flow on color Doppler makes an abscess unlikely. Hypovascular mass or neoplasm is not ruled out. Electronically signed by: Sushant Hirsch MD 12/02/2024 04:33 PM EDT Dictated By: Sushant Hirsch MD Signed By: <Electronically signed by Sushant Hirsch MD in OV> 12/02/24 1633 DD/ 1543 TD/TT: 12/02/24 1607 Manager Of Photography: Procedure Note Donotuseinterpreter, Image - 12/02/2024 [place] [address] Ultrasound Report Signed Patient: Nader Khoury#: M [id number] : 8Acct:[id number] Age/Sex: 89 / MADM Date: 12/02/24 Loc: HO.ED Attending Dr: Ordering Physician: Chriss Rasheed Date of Service: 12/02/24 Procedure(s): US venous duplex LE RT Accession Number(s): [id number] cc: Chriss Rasheed; ORIANA GIFFORD NP Reason for Exam: Right calf mass/burise. DVT. varicose rupture? EXAMINATION: US TRIPLEX LOWER EXTREMITY, RIGHT CLINICAL INFORMATION: Right calf mass and bruising COMPARISON: None available. TECHNIQUE: Color-flow triplex imaging with spectral analysis and compression Doppler were performed on the right lower extremity. FINDINGS: Respiratory variation, normal compression and augmented flow are noted throughout the right lower extremity. The visualized common femoral vein, superficial femoral vein, profunda femoral vein, popliteal vein and midcalf peroneal and posterior tibial venous segments show no evidence of deep venous thrombosis. In the subcutaneous soft tissues of the calf, there is a heterogeneous hypoechoic lobulated mass that measures 2.3 x 0.9 x 2.4 cm. It demonstrates mildly increased through transmission. It demonstrates no blood flow on color Doppler. US/US venous duplex LE RT IMPRESSION: No evidence of deep venous thrombosis involving the right lower extremity. There is a 2.2 x 0.9 x 2.4 cm heterogeneous hypoechoic mass in subcutaneous soft tissues in the medial right calf. Patient denies trauma in this region. This could represent hematoma. Chronic seroma is in the differential. Lack of robust peripheral blood flow on color Doppler makes an abscess unlikely. Hypovascular mass or neoplasm is not ruled out. Electronically signed by: Sushant Hirsch MD 12/02/2024 04:33 PM EDT Dictated By: Sushant Hirsch MD Signed By: <Electronically signed by Sushant Hirsch MD in [place]> 12/02/24 1633 DD/ 1543 TD/TT: 12/02/24 1607 Manager Of Photography: us [facility] External Provider IMG US PROCEDURES Edited Result - Final * XR Tibia Fibula 2 Views Right (12/02/2024 2:48 PM EDT) Anatomical Region Laterality Modality Lower Extremities, Lower Leg Right Rad iographic Imaging 12/02/2024 2:48 PM EDT Narrative 12/02/2024 2:53 PM EDT [address] [address] XRay Report Signed Patient: Nader Khoury MR#: M [id number] : 1935 Acct:[id number] Age/Sex: 89 / M ADM Date: 12/02/24 Loc: HO.ED Attending Dr: Ordering Physician: Chriss Rasheed Date of Service: 12/02/24 Procedure(s): XR tibia fibula RT 2V Accession Number(s): [id number] cc: Chriss Rasheed; ORIANA GIFFORD NP Reason for Exam: posterior leg bruise. fracture? EXAMINATION: XR TIBIA AND FIBULA, RIGHT CLINICAL INFORMATION: posterior leg bruise. fracture? COMPARISON: None available. TECHNIQUE: AP and lateral views of the right tibia and fibula were obtained. FINDINGS: The bones and soft tissues are normal. No fracture. No osseous lesions. Surgical clips are seen just posterior to the tibial metaphysis. 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 XR/XR tibia fibula RT 2V IMPRESSION: No acute bony abnormality. Electronically signed by: Berlin Thorpe MD 12/02/2024 02:50 PM EDT RP Dictated By: Berlin Thorpe MD Signed By: <Electronically signed by Berlin Thorpe MD in OV> 12/02/24 1450 DD/ 1448 TD/TT: 12/02/24 1447 Manager Of Photography: Procedure Note Donotuseinterpreter, Image - 12/02/2024 [place] [address] XRay Report Signed Patient: Nader KhouryMR#: M [id number] : 1935cct:[id number] Age/Sex: 89 / MADM Date: 12/02/24 Loc: HO.ED Attending Dr: Ordering Physician: Chriss Rasheed Date of Service: 12/02/24 Procedure(s): XR tibia fibula RT 2V Accession Number(s): [id number] cc: Chriss Rasheed; ORIANA GIFFORD NP Reason for Exam: posterior leg bruise. fracture? EXAMINATION: XR TIBIA AND FIBULA, RIGHT CLINICAL INFORMATION: posterior leg bruise. fracture? COMPARISON: None available. TECHNIQUE: AP and lateral views of the right tibia and fibula were obtained. FINDINGS: The bones and soft tissues are normal. No fracture. No osseous lesions. Surgical clips are seen just posterior to the tibial metaphysis. 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 XR/XR tibia fibula RT 2V IMPRESSION: No acute bony abnormality. Electronically signed by: Berlin Thorpe MD 12/02/2024 02:50 PM EDT RP Dictated By: Berlin Thorpe MD Signed By: <Electronically signed by Berlin Thorpe MD in [place]> 12/02/24 1450 DD/ 1448 TD/TT: 12/02/24 1447 Manager Of Photography: [facility] External Provider IMG XR PROCEDURES Edited Result - Final * (ABNORMAL) Comprehensive Metabolic Panel (12/02/2024 2:36 PM EDT) Sodium 139 135 - 145 mmol/L [facility] Potassium 4.0 3.3 - 5.1 mmol/L [facility] Chloride 104 96 - 108 mmol/L [facility] Carbon Dioxide 30(H) 22 - 29 mmol/L [facility] Anion Gap 9(L) 12 - 20 [facility] Urea Nitrogen (BUN) 14 9 - 16 mg/dL [facility] Creatinine, Serum 1.25 0.5 - 1.4 mg/dL [facility] Creatinine Clr Calc Pharmacy 36.2 [facility] Comment:eGFR (calculated fro m the MDRD study equation) and eCrCl(calculated from the Cockcroft-Gault equation) are based ondifferent parameters and may not yield comparable results.If eCrCl result is absurd, please check patient'sheight/weight. Estimated Glomerular Filt Rate 55 [facility] Comment:Chronic Kidney Disea se: Estimated GFR < 60 mL/min/1.97y8Aggsen Kidney Disease: Estimated GFR < 15 mL/min/1.73m2 Glucose 161(H) 60 - 115 mg/dL [facility] Calcium 8.5 8.4 - 10.2 mg/dL [facility] Bilirubin, Total 0.7 0.0 - 1.0 mg/dL [facility] Aspartate Amino Transferase 33 5 - 37 U/L [facility] Alanine Aminotransferase 17 0 - 40 U/L [facility] Total Protein 6.9 6.5 - 8.0 g/dL [facility] Albumin Level 4.1 3.5 - 5.0 g/dL [facility] Alkaline Phosphatase 121(H) 39 - 117 U/L [facility] 12/02/2024 2:36 PM EDT 12/02/2024 2:39 PM EDT Generic External Data Provider LAB BLOOD ORDERAB LES Final Result Performing Organization Address [facility]/ZIP Co de Phone Number [facility] [address] [place] [phone] * (ABNORMAL) Partial Thromboplastin Time, Activated (APTT) (12/02/2024 2:36 PM EDT) Partial Thromboplastin Time 36.3(H) 26.7 - 34.1 SEC [facility] 12/02/2024 2:36 PM EDT 12/02/2024 2:39 PM EDT Generic External Data Provider LAB BLOOD ORDERAB LES Final Result Performing Organization Address [facility] Co de Phone Number [facility] [address] [place] [phone] * (ABNORMAL) Prothrombin Time-INR (12/02/2024 2:36 PM EDT) Prothrombin Time 14.4(H) 10.9 - 12.4 SEC [facility] INTERNATIONAL NORM RATIO 1.3(H) 0.9 - 1.1 [facility] Comment:INTERNATIONAL NORMAL IZED RATIO (INR) REFERENCE RANGES Reference RangeFor patients not on anticoagulant therapy: 0.9 - 1.1INR ranges for oral anticoagulanttherapy:For prevention and treatment of venous thrombosis and pulmonary embolism: 2.0 - 3.0For acute myocardial infarction with aspirin therapy: 2.0 - 3.0For acute myocardial infarction without aspirin therapy: 3.0 - 4.0For patients with mechanical prosthetic heart valves: 2.5 - 3.5 12/02/2024 2:36 PM EDT 12/02/2024 2:39 PM EDT us Generic External Data Provider LAB BLOOD ORDERAB LES Final Result [facility] [address] [place] [phone] * (ABNORMAL) CBC auto differential (12/02/2024 2:36 PM EDT) White Blood Count 7.6 4.8 - 10.8 X10*3/uL [facility] Red Blood Count 4.54(L) 4.60 - 5.80 X10*6/uL [facility] Hemoglobin 13.8(L) 14.0 - 18.0 g/dl [facility] Hematocrit 41.0(L) 42.0 - 52.0 % [facility] Mean Corpuscular Volume 90.3 80.0 - 98.0 fL [facility] Mean Corpuscular Hemoglobin 30.4 27.0 - 33.0 pg [facility] Mean Corpuscular HGB Conc 33.7 31.0 - 36.0 g/dl [facility] Red Cell Distribution Width 13.4 11.0 - 16.0 % [facility] Platelet Count 154(L) 160 - 400 X10*3/uL [facility] Mean Platelet Volume 11.3 9.4 - 12.4 fL [facility] Neutrophils Percent Auto 56.5 45 - 73 % [facility] Imm Gran Pct Auto 0.4 0.0 - 0.4 % [facility] Lymphocytes Percent Auto 16.8(L) 20 - 40 % [facility] Monocytes Percent Auto 9.3 2 - 11 % [facility] Eosinophils Percent Auto 16.2(H) 0 - 4 % [facility] Basophils Percent Auto 0.8 0 - 2 % [facility] NRBC Pct Auto 0.0 0.0 - 0.2 /100WBC [facility] Neutrophils Absolute Auto 4.3 2.0 - 8.3 x10*3/uL [facility] Imm Gran Abs Auto 0.03 0.00 - 0.03 X10*3/uL [facility] Lymphocytes Absolute Auto 1.3 1.2 - 4.9 X10*3/uL [facility] Monocytes Absolute Auto 0.7 0.1 - 1.2 X10*3/uL [facility] Eosinophils Absolute Auto 1.2(H) 0.0 - 0.4 X10*3/uL [facility] Basophils Absolute Auto 0.1 0.0 - 0.2 X10*3/uL [facility] NRBC Abs Auto 0.000 0.0 - 0.012 X10*3/uL [facility] 12/02/2024 2:36 PM EDT 12/02/2024 2:39 PM EDT us Generic External Data Provider LAB BLOOD ORDERAB LES Final Result [facility] [address] [place] [phone] documented in this encounter Visit Diagnoses Not on filedocumented in this encounter Care Teams Diabetes Education Coordinator Relationship Specialty Start Date End Date Oriana Gifford ANP [address] [place] [phone] PCP - General Family Medicine 02/01/21 documented as of this encounter
--- OUTSIDE RECORDS SUMMARY | 2024-12-02 18:21 | XMS_ITS | Encounter Summary ---
Author Organization [employer] Address [address] [place] [address] Care Team Providers Care Auto Service Instructor Name Role Phone Chloé Swenson Primary Care Provider [phone] Reason for Visit * Reason Comments Med Refill Encounter Details Date Type Department Care Team ([facility] st Contact Info) Description 01/20/2023 Refill [facility] [address] [place], [place] [phone] Chloé Swenson ANP [address] [place], [place] [phone] Essential hypertension; Hyperlipidemia, unspecified hyperlipidemia type; Atrial [...] hyperlipidemia type Atrial fibrillation, unspecified type (CMS/HCC) (HCC) documented in this encounter Care Teams Auto Service Instructor Relationship Specialty Start Date End Date Chloé Swenson ANP [address] [place] [address] PCP - General Family Medicine 02/01/21 documented as of this encounter
--- OUTSIDE RECORDS SUMMARY | 2024-12-02 18:21 | XMS_ITS | Encounter Summary ---
Author Organization [employer] Address [address] [place] [address] Care Team Providers Care Manager Security And Safety Name Role Phone Chloé Swenson Primary Care Provider Reason for Visit * Reason Onset Date Comments Hospital Follow-up 08/08/2023 Encounter Details Date Type Department Care Team (Late st Contact Info) Description 08/08/2023 Telephone [facility] [address] [place], [place] [phone] Chloé Swenson ANP [address] [place], [place] [phone] Hospital Follow-up Social History Tobacco Use Types [...] 10:14 AM EDT Tc from Isabel with [facility] requesting a HDF appt. Hospital: [facility] Date of admission: 08/02 Discharge date: 08/04 Diagnosed: Respiratory Distress Son (also known as pt's health care proxy) requested call back, Isabel provided contact number. Please contact Son at [phone]. documented in this encounter Plan of Treatment Not on file documented as of this encounter Visit Diagnoses Not on filedocumented in this encounter Care Teams Manager Security And Safety Relationship Specialty Start Date End Date Chloé Swenson ANP [address] [place] [phone] PCP - General Family Medicine 02/01/21 documented as of this encounter
--- OUTSIDE RECORDS SUMMARY | 2024-12-02 18:21 | XMS_ITS | Clinical Summary ---
Author Organization [employer] Address [address] [facility] [address] [place] [address] Care Team Providers Care Magnetic Resonance Imaging Coordinator Name Role Phone Oriana Gifford Primary Care Provider [phone] Allergies No known active allergies Medications lisinopril [...] obstructive pulmonary disease, unspecified COPD type (CMS/HCC) (HCC) Inhale 2 puffs every 4 (four) hours if needed for shortness of breath. 18 g 1 4 Active metoprolol tartrate (Lopressor) 50 MG tabletIndications: Essential hypertension TAKE 1 & 1/2 TABLETS (75 MG) BY MOUTH 2 TIMES DAILY. 270 tablet 3 5 Active rivaroxaban (Xarelto) 20 MG tabletIndications: Atrial fibrillation, unspecified type (CMS/HCC) (HCC) TAKE 1 TABLET BY MOUTH EVERY DAY WITH EVENING MEAL 90 tablet 1 5 Active Trelegy Ellipta 200-62.5-25 MCG/ACT aerosol powder take 1 puff by mouth every day 5 Active Active Problems Problem Noted Date Diagnosed Date COPD exacerbation (CMS/HCC) 05/11/2024 Assessment & Plan (05/11/2024 4:20 PM [...] obstructive pulmonar y disease, unspecified COPD type ([facility]) 02/27/2024 Assessment & Plan (02/27/2024 11:33 AM [...] left 09/11/2023 Stage 3b chronic kidney disease ([facility]/HCC) 2023 Assessment & Plan (09/11/2023 11:22 AM EDT): I advise no NSAIDs or other nephrotoxic medications, I advise to drink plenty of water good blood pressure control and weight maintenance, referral to nephrology done 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 Cerebrovascular accident ([facility]) 01/07/2017 Dyslipidemia 01/07/2017 Paroxysmal atrial fibrillation ([facility]) 014 Assessment & Plan (02/27/2024 11:04 AM EST): [...] Date Diagnosed Date Resolved Date Subdural hematoma ([facility]) 01/07/2017 02/27/2024 Encounters Date Type Department Care Team Description 12/02/2024 Orders Only GENERIC EXTERNAL DATA DEPARTMENT Provider, Generic External Data from Last 3 Months Immunizations Immunization Administration [...] VIEWS RIGHT Routine 12/02/2024 2:48 PM EDT COMPREHENSIVE METABOLIC PANEL Routine 12/02/2024 2:36 PM EDT APTT Routine 12/02/2024 2:36 PM EDT PROTHROMBIN TIME-INR Routine 12/02/2024 2:36 PM EDT CBC WITH AUTO DIFFERENTIAL Routine 12/02/2024 2:36 PM EDT PERIODIC ORAL EVALUATION - ESTABLISHED PATIENT Routine 07/26/2022 10:00 AM EDT PANORAMIC RADIOGRAPHIC IMAGE Routine 01/12/2021 12:00 AM EST LIPID PANEL, STANDARD Routine 04/25/2020 3:04 PM EST from Last 3 Months or Most Recently Relevant to Health Maintenance Results * US VENOUS DUPLEX LE RT (12/02/2024 3:43 PM EDT) Anatomical Region Laterality Modality Abdomen Ultrasound 12/02/2024 3:43 PM EDT Narrative 12/02/2024 4:35 PM EDT [place] [address] Ultrasound Report Signed Patient: Nader Khoury MR#: [id number] : 1935 Acct:[id number] Age/Sex: 89 / M ADM Date: 12/02/24 Loc: HO.ED Attending Dr: Ordering Physician: Chriss Rasheed Date of Service: 12/02/24 Procedure(s): US venous duplex LE RT Accession Number(s): [id number] cc: Chriss Rasheed; ORIANA GIFFORD NP Reason [...] 12/02/24 1633 DD/ 1543 TD/TT: 12/02/24 1607 Funeral Service Practitioner/Embalmer: Procedure Note Donotuseinterpreter, Image - 12/02/[address] [address] Ultrasound Report Signed Patient: Nader KhouryMR#: [id number] : 8Acct:[id number] Age/Sex: 89 / MADM Date: 12/02/24 Loc: HO.ED Attending Dr: Ordering Physician: Chriss Rasheed Date of Service: 12/02/24 Procedure(s): US venous duplex LE RT Accession Number(s): [id number] cc: Chriss Rasheed; ORIANA GIFFORD NP Reason [...] 12/02/24 1633 DD/ 1543 TD/TT: 12/02/24 1607 Funeral Service Practitioner/Embalmer: [facility] External Provider IMG US PROCEDURES Edited Result - Final * XR Tibia Fibula 2 Views Right (12/02/2024 2:48 PM EDT) Anatomical Region Laterality Modality Lower Extremities, Lower Leg Right Rad iographic Imaging 12/02/2024 2:48 PM EDT Narrative 12/02/2024 2:53 PM EDT [address] [address] XRay Report Signed Patient: Nader Khoury MR#: [id number] : 1935 Acct:[id number] Age/Sex: 89 / M ADM Date: 12/02/24 Loc: HO.ED Attending Dr: Ordering Physician: Chriss Rasheed Date of Service: 12/02/24 Procedure(s): XR tibia fibula RT 2V Accession Number(s): [id number] cc: Chriss Rasheed; ORIANA GIFFORD NP Reason [...] Berlin Thorpe MD 12/02/2024 02:50 PM EDT Dictated By: Berlin Thorpe MD Signed By: <Electronically signed by Berlin Thorpe MD in OV> 12/02/24 1450 DD/ 1448 TD/TT: 12/02/24 1447 Funeral Service Practitioner/Embalmer: Procedure Note Donotuseinterpreter, Image - 12/02/[address] [address] XRay Report Signed Patient: Nader KhouryMR#: Ana [id number] : 1935cct:[id number] Age/Sex: 89 / MADM Date: 12/02/24 Loc: HO.ED Attending Dr: Ordering Physician: Chriss Rasheed Date of Service: 12/02/24 Procedure(s): XR tibia fibula RT 2V Accession Number(s): [id number] cc: Chriss Rasheed; ORIANA GIFFORD NP Reason [...] 12/02/24 1450 DD/ 1448 TD/TT: 12/02/24 1447 Funeral Service Practitioner/Embalmer: [facility] External Provider IMG XR PROCEDURES Edited Result - Final * (ABNORMAL) CBC auto differential (12/02/2024 2:36 PM EDT) White Blood Count 7.6 4.8 - 10.8 X10*3/uL [facility] Red Blood Count 4.54(L) 4.60 - 5.80 X10*6/uL [facility] Hemoglobin 13.8(L) 14.0 - 18.0 g/dl [facility] Hematocrit 41.0(L) 42.0 - 52.0 % [facility] Mean Corpuscular Volume 90.3 80.0 - 98.0 fL [facility] Mean Corpuscular Hemoglobin 30.4 27.0 - 33.0 pg [facility] Mean Corpuscular HGB Conc 33.7 31.0 - 36.0 g/dl [facility] Red Cell Distribution Width 13.4 11.0 - 16.0 % [facility] Platelet Count 154(L) 160 - 400 X10*3/uL [facility] Mean Platelet Volume 11.3 9.4 - 12.4 fL [facility] Neutrophils Percent Auto 56.5 45 - 73 % [facility] Imm Gran Pct Auto 0.4 0.0 - 0.4 % [facility] Lymphocytes Percent Auto 16.8(L) 20 - 40 % [facility] Monocytes Percent Auto 9.3 2 - 11 % [facility] Eosinophils Percent Auto 16.2(H) 0 - 4 % [facility] Basophils Percent Auto 0.8 0 - 2 % [facility] NRBC Pct Auto 0.0 0.0 - 0.2 /100WBC [facility] Neutrophils Absolute Auto 4.3 2.0 - 8.3 x10*3/uL [facility] Imm Gran Abs Auto 0.03 0.00 - 0.03 X10*3/uL [facility] Lymphocytes Absolute Auto 1.3 1.2 - 4.9 X10*3/uL [facility] Monocytes Absolute Auto 0.7 0.1 - 1.2 X10*3/uL [facility] Eosinophils Absolute Auto 1.2(H) 0.0 - 0.4 X10*3/uL [facility] Basophils Absolute Auto 0.1 0.0 - 0.2 X10*3/uL [facility] NRBC Abs Auto 0.000 0.0 - 0.012 X10*3/uL [facility] 12/02/2024 2:36 PM EDT 12/02/2024 2:39 PM EDT us Generic External Data Provider LAB BLOOD ORDERAB LES Final Result [facility] [address], [place] [phone] * (ABNORMAL) Partial Thromboplastin Time, Activated (APTT) (12/02/2024 2:36 PM EDT) Partial Thromboplastin Time 36.3(H) 26.7 - 34.1 SEC [facility] 12/02/2024 2:36 PM EDT 12/02/2024 2:39 PM EDT us Generic External Data Provider LAB BLOOD ORDERAB LES Final Result Performing Organization Address [facility] Co de Phone Number [facility] [address] [place] [phone] * (ABNORMAL) Prothrombin Time-INR (12/02/2024 2:36 PM EDT) Pathologist [facility] Prothrombin Time 14.4(H) 10.9 - 12.4 SEC [facility] INTERNATIONAL NORM RATIO 1.3(H) 0.9 - 1.1 [facility] Comment:INTERNATIONAL NORMAL IZED RATIO (INR) [...] ORDERAB LES Final Result Performing Organization Address [facility] Co de Phone Number [facility] [address] [place] [phone] * (ABNORMAL) Comprehensive Metabolic Panel (12/02/2024 2:36 PM EDT) Pathologist [facility] Sodium 139 135 - 145 mmol/L [facility] Potassium 4.0 3.3 - 5.1 mmol/L [facility] Chloride 104 96 - 108 mmol/L [facility] Carbon Dioxide 30(H) 22 - 29 mmol/L [facility] Anion Gap 9(L) 12 - 20 [facility] Urea Nitrogen (BUN) 14 9 - 16 mg/dL [facility] Creatinine, Serum 1.25 0.5 - 1.4 mg/dL [facility] Creatinine Clr Calc Pharmacy 36.2 [facility] Comment:eGFR (calculated fro m the MDRD study equation) and eCrCl(calculated from the Cockcroft-Gault equation) are based ondifferent parameters and may not yield comparable results.If eCrCl result is absurd, please check patient'sheight/weight. Estimated Glomerular Filt Rate 55 [facility] Comment:Chronic Kidney Disea se: Estimated GFR < 60 mL/min/1.92y7Bgdimy Kidney Disease: Estimated GFR < 15 mL/min/1.73m2 Glucose 161(H) 60 - 115 mg/dL [facility] Calcium 8.5 8.4 - 10.2 mg/dL [facility] Bilirubin, Total 0.7 0.0 - 1.0 mg/dL [facility] Aspartate Amino Transferase 33 5 - 37 U/L [facility] Alanine Aminotransferase 17 0 - 40 U/L [facility] Total Protein 6.9 6.5 - 8.0 g/dL [facility] Albumin Level 4.1 3.5 - 5.0 g/dL [facility] Alkaline Phosphatase 121(H) 39 - 117 U/L [facility] 12/02/2024 2:36 PM EDT 12/02/2024 2:39 PM EDT us Generic External Data Provider LAB BLOOD ORDERAB LES Final Result [facility] [address] [place] [phone] * (ABNORMAL) LIPID PANEL, STANDARD (04/25/2020 3:04 [...] factors. LDL-C is now calculated using the Deandre calculation, which is a validated novel method providing better accuracy than the Friedewald equation in the estimation of LDL-C. Getachew SANTIAGO et al. BULL. 2013;310(19): 3865-7018 (http://education.[employer].Proximic/faq/BQU180) Non-HDL Cholesterol 83 <130 mg/dL (calc) [facility] Comment: For patients with diabetes plus 1 major ASCVD risk factor, treating to a non-HDL-C goal of <100 mg/dL (LDL-C of <70 mg/dL) is considered a therapeutic option. Triglycerides 168(H) <150 mg/dL [facility] 04/25/2020 3:04 PM EST us Joan Mcgee MD LAB BLOOD ORDERABLES Final Re sult [facility] [address] from Last 3 Months or Most Recently Relevant to Health Maintenance Insurance [facility] OPTIONS (O D-SNP) [facility]AL [facility] Care Teams Magnetic Resonance Imaging Coordinator Relationship Specialty Start Date End Date Oriana Gifford ANP [address] [place] [address] [place] [phone] PCP - General Family Medicine 02/01/21
== END 2024-12-02 18:25 | disposition home or self-care (01) ==
PROVIDERS: Physician Assistant; Emergency Provider Emergency Medicine; PCP Nurse Practitioner Primary Care
DX: S80.11XA Contusion of right lower leg, initial encounter (principal); R60.0 Localized edema; X58.XXXA Exposure to other specified factors, initial encounter; Y93.9 Activity, unspecified; Y92.9 Unspecified place or not applicable; Y99.8 Other external cause status; Z79.01 Long term (current) use of anticoagulants; Z79.899 Other long term (current) drug therapy
CPT/HCPCS: 36415; 73590; 80053; 85025; 85610; 85730; 93971; 99284

== ENCOUNTER → 2024-12-02 14:27 | Outpatient (BNV) | payer OTHER, SELFPAY | PROVIDERS: PCP Nurse Practitioner Primary Care; Visit Provider Radiology Diagnostic Radiology | DX: R22.41 Localized swelling, mass and lump, right lower limb (principal); M79.81 Nontraumatic hematoma of soft tissue | CPT/HCPCS: 73590; 93971 ==